=== PATIENT | female | born 1985 | race Caucasian/White ===

== ENCOUNTER 2017-09-30 18:14 | Observation (INO) | payer OTHER ==
[~2017-09-30] VITALS: Ht 162.6 cm; Wt 79.2 kg
[~2017-09-30 18:14] MED LIST: AMLO-110 PO; FLUO20CA35 PO
[2017-09-30] MEDS ORDERED: LABETALOL HCL IV 5 MG/ML 20ML IV STA ×2 (18:32→19:57)
[2017-09-30] MEDS ORDERED: AMLODIPINE BESYLATE 5 MG TAB PO ONE (18:45)
[2017-09-30 19:52] LABS: BUN/CREATININE RATIO 11.8 (10-20); CALCIUM 8.7 mg/dl (8.5-10.1); CREATININE 1.29 mg/dl (0.60-1.20); HEMATOCRIT 37.9 % (37-47); MEAN CELL VOLUME 85.9 fL (80-100); MEAN CORPUSCULAR HGB CONC 33.8 g/dl (32-36); MEAN PLATELET VOLUME 12.9 fL (7.4-10.4); PLATELET COUNT 72 K/uL (130-400); POTASSIUM 3.3 mmol/L (3.5-5.1); RED BLOOD COUNT 4.41 M/uL (4.2-5.4)
[2017-09-30 19:53] LABS: BASO % 0.2 %; BASO ABS # 0.02 K/uL (0-0.2); COMPLETE YES; EOS % 3.9 %; IG% 0.6 %; LYMPH % 24.3 %; LYMPH ABS # 2.14 K/uL (1.2-3.4); MONO % 6.4 %; NEUT % 64.6 %; PLT ESTIMATE DECREASED
--- NOTE | 2017-09-30 19:53 | DIAGNOSTIC IMAGING REPORT ---
HEAD WITHOUT CONTRAST (CT) CLINICAL HISTORY: 31 years-old Female presenting with Headache, HTN. TECHNIQUE: Multidetector CT imaging of the head was performed without the use of intravenous contrast. IV contrast: None. A dose lowering technique was used consistent with the principles of ALARA (as low as reasonably achievable). COMPARISON: None. CT DOSE (mGy.cm): The estimated cumulative dose is 537.48 mGy.cm. FINDINGS: Broadcast Designer topogram: Unremarkable. Ventricles and sulci normal in size. Brain parenchyma normal in appearance with preserved oscar-white differentiation. No mass effect or midline shift. No hemorrhage or acute territorial infarct. No extra-axial fluid collection. Paranasal sinuses and mastoid air cells clear. Calvarium intact. IMPRESSION: 1. No acute intracranial abnormality. Electronically signed by: Anthony Feliz M.D. 09/30/2017 7:51 PM Dictated Date/Time: 09/30/2017 7:49 PM
--- NOTE | 2017-09-30 20:23 | EMERGENCY ROOM VISIT NOTE ---
History Report prepared by Tay: Mychal Villafuerte Under the Supervision of: Dr. Anabella Vidales M.D. First contact with patient: 18:30 Chief Complaint: HYPERTENSION Stated Complaint: SENT BY URGENT CARE - BLOOD PRESSURE 178/128 History of Present Illness The patient is a 31 year old female who presents to the Emergency Room with complaints of persistent dizziness beginning three days ago. She also complains of frequent headaches. She was seen at urgent care just prior to arrival for similar symptoms, was found to have a blood pressure of 178/128, and was referred to the ED for further evaluation. The patient has a history of hypertension, but was taken off of her blood pressure medications about a year ago around the time she became . She had a early miscarriage, but was not started on blood pressure medication. She denies vomiting, or nausea. Her LNMP was one month ago. The patient smokes about a pack of cigarettes a day. She does not currently have a PCP. Source of History: patient Onset: Three days ago Quality: other (dizziness) Timing: other (persistent) Associated Symptoms: + headache, No nausea, No vomiting Review of Systems See HPI for pertinent positives & negatives. A total of 10 systems reviewed and were otherwise negative. Past Medical & Surgical Medical Problems: (1) Cyst of ovary (2) TOBACCO USE DISORDER Family History Diabetes mellitus Heart disease Hypertension Social History Smoking Status: Current Every Day Smoker Alcohol Use: occasionally Housing Status: lives with family Occupation Status: employed Current/Historical Medications Scheduled Hydrochlorothiazide (Hydrochlorothiazide), 25 MG PO QAM Metoprolol Succinate (Metoprolol Succinate ER), 25 MG PO BID Scheduled PRN Ondansetron Odt (Zofran Odt), 8 MG SL Q6H PRN for Nausea Allergies Coded Allergies: Guaifenesin (Verified Allergy, Unknown, HIVES FROM MUCINEX, 10/01/17) Physical Exam Vital Signs Date Time Temp Pulse Resp B/P (MAP) Pulse Ox O2 Delivery O2 Flow Rate FiO2 09/30/17 22:00 87 16 211/125 98 Room Air 09/30/17 21:17 85 16 174/119 98 Room Air 09/30/17 20:22 80 20 173/118 98 Room Air 09/30/17 20:00 94 16 190/126 98 Room Air 09/30/17 19:52 82 09/30/17 19:49 82 16 205/131 98 Room Air 09/30/17 19:25 85 16 184/124 99 Room Air 09/30/17 19:10 84 16 193/132 99 Room Air 09/30/17 18:54 93 16 200/136 100 Room Air 09/30/17 18:25 36.9 103 18 205/143 100 Room Air Physical Exam Vital signs reviewed. Noted to be markedly hypertensive. General: Well-appearing female, in no significant distress. HEENT: No scleral icterus, PERRLA, neck supple. Atraumatic. Cardiovascular: Regular rate and rhythm, no extra sounds. Pulmonary: Clear to auscultation bilaterally, normal work of breathing. Abdomen: Soft, nontender, nondistended, positive bowel sounds. Musculoskeletal: Atraumatic, no peripheral edema. Neurologic: Patient awake alert and oriented x 3, full strength in all 4 extremities. Cranial nerves 2 through 12 grossly intact. Skin: Warm, dry, no rash Medical Decision & Procedures ER Provider Diagnostic Interpretation: CT results as stated below per my review and radiologist interpretation: HEAD WITHOUT CONTRAST (CT) FINDINGS: Carpenter Helper Maintenance topogram: Unremarkable. Ventricles and sulci normal in size. Brain parenchyma normal in appearance with preserved oscar-white differentiation. No mass effect or midline shift. No hemorrhage or acute territorial infarct. No extra-axial fluid collection. Paranasal sinuses and mastoid air cells clear. Calvarium intact. IMPRESSION: 1. No acute intracranial abnormality. Electronically signed by: Anthony Feliz M.D. 09/30/2017 7:51 PM Laboratory Results Test 09/30/17 18:47 09/30/17 20:42 Immature Granulocyte % (Auto) 0.6 % White Blood Count 8.80 K/uL (4.8-10.8) Red Blood Count 4.41 M/uL (4.2-5.4) Hemoglobin 12.8 g/dL (12.0-16.0) Hematocrit 37.9 % (37-47) Mean Corpuscular Volume 85.9 fL (80-100) Mean Corpuscular Hemoglobin 29.0 pg (25-34) Mean Corpuscular Hemoglobin Concent 33.8 g/dl (32-36) Platelet Count 72 K/uL (130-400) Mean Platelet Volume 12.9 fL (7.4-10.4) Neutrophils (%) (Auto) 64.6 % Lymphocytes (%) (Auto) 24.3 % Monocytes (%) (Auto) 6.4 % Eosinophils (%) (Auto) 3.9 % Basophils (%) (Auto) 0.2 % Neutrophils # (Auto) 5.69 K/uL (1.4-6.5) Lymphocytes # (Auto) 2.14 K/uL (1.2-3.4) Monocytes # (Auto) 0.56 K/uL (0.11-0.59) Eosinophils # (Auto) 0.34 K/uL (0-0.5) Basophils # (Auto) 0.02 K/uL (0-0.2) Immature Granulocyte # (Auto) 0.05 K/uL (0.00-0.02) Red Blood Cell Morphology Unremarkable Peripheral Blood Smear Path Consult Magnesium Level 2.0 mg/dl (1.8-2.4) Total Bilirubin 0.9 mg/dl (0.2-1) Direct Bilirubin 0.2 mg/dl (0-0.2) Aspartate Amino Transf (AST/SGOT) 22 U/L (15-37) Alanine Aminotransferase (ALT/SGPT) 28 U/L (12-78) Alkaline Phosphatase 80 U/L (45-117) Total Protein 8.1 gm/dl (6.4-8.2) Albumin 4.4 gm/dl (3.4-5.0) Urine Color YELLOW Urine Appearance CLEAR (CLEAR) Urine pH 5.5 (4.5-7.5) Urine Specific [place] 1.021 (1.000-1.030) Urine Protein 1+ (NEG) Urine Glucose (UA) NEG (NEG) Urine Ketones NEG (NEG) Urine Occult Blood NEG (NEG) Urine Nitrite NEG (NEG) Urine Bilirubin NEG (NEG) Urine Urobilinogen NEG (NEG) Urine Leukocyte Esterase NEG (NEG) Urine WBC (Auto) 1-5 /hpf (0-5) Urine RBC (Auto) 0-4 /hpf (0-4) Urine Hyaline Casts (Auto) 1-5 /lpf (0-5) Urine Epithelial Cells (Auto) >30 /lpf (0-5) Urine Bacteria (Auto) 2+ (NEG) Urine Test NEG (NEG) Laboratory results per my review. Medications Administered Medications (Trade) Dose Ordered Sig/Juju Route Start Time Stop Time Status Last Admin Dose Admin Amlodipine Besylate (Norvasc Tab) 5 mg NOW ONCE PO 09/30/17 18:45 09/30/17 18:46 DC 09/30/17 19:14 5 MG Labetalol HCl (Normodyne IV) 10 mg NOW STAT IV 09/30/17 18:32 09/30/17 18:35 DC 09/30/17 19:12 10 MG Labetalol HCl (Normodyne IV) 20 mg NOW STAT IV 09/30/17 19:57 09/30/17 19:58 DC 09/30/17 20:01 20 MG Acetaminophen (Tylenol Tab) 650 mg Q4H PRN PO 09/30/17 22:00 10/01/17 19:04 DC 09/30/17 23:58 650 MG Ondansetron HCl (Zofran Inj) 4 mg Q6H PRN IV 09/30/17 22:00 10/01/17 19:04 DC 10/01/17 10:12 4 MG ECG Indication: other (dizziness) Rate (beats per minute): 90 Rhythm: normal sinus Findings: T-wave inversion (Inferior), other (RAD. Repolarization abnormality in the lateral leads. Possible previous septal infarct. ) ED Course 1830: Past medical records reviewed. The patient was evaluated in room C1B. A complete history and physical examination was performed. 1831: Ordered Normodyne 10 mg IV. 1844: Ordered Norvasc Tab 5 mg PO. 1956: Ordered Normodyne 20 mg IV. 2010: Upon reevaluation, the patient is resting comfortably. I discussed laboratory and radiographic results with her. She verbalized agreement of the treatment plan. The patient will be evaluated for further management and care. Medical Decision Differential diagnosis: Etiologies such as benign hypertension, hypertensive emergency, cardiovascular pathology, pheochromocytoma, electrolyte abnormality, renal disease, end-organ damage, as well as others were entertained. This patient was evaluated and appeared to be in no significant distress. The patient complains of a mild headache and is somewhat tearful. Vital signs reveal a marked hypertension. Patient was given IV labetalol 10 mg and oral Norvasc 5 mg without any significant improvement. Repeat labetalol 20 mg was administered again without significant improvement. EKG reveals T-wave inversions in the inferior leads. Laboratory work reveals a mild renal insufficiency. CT scan of the head reveals no evidence of acute intracranial hemorrhage. Renal ultrasound was performed and reveals no evidence of significant obstructive change. Given the patient's young age and hypertensive urgency, I feel is in her best interest for further management. Patient is aware of the plan and agrees. Medication Reconcilliation Current Medication List: was personally reviewed by me Blood Pressure Screening Patient's blood pressure: Elevated blood pressure Blood pressure disposition: Referred to PCP Consults Time Called: 2014 Consulting Physician: Dr. Cao -LINDY Returned Call: 2031 I reviewed the patient's case with Dr. Cao. FABIOG will evaluate the patient for further management. Impression Primary Impression: Hypertensive urgency Additional Impression: Renal insufficiency Scribe Attestation The scribe's documentation has been prepared under my direction and personally reviewed by me in its entirety. I confirm that the note above accurately reflects all work, treatment, procedures, and medical decision making performed by me. Departure Information Dispostion Being Evaluated By Hospitalist Prescriptions Ondansetron Odt (ZOFRAN ODT) 8 Mg Soltab 8 MG SL Q6H Y for Nausea, #30 TAB Prov: Capo Sifuentes D.O. 10/01/17 Hydrochlorothiazide (Hydrochlorothiazide) 50 Mg Tab 25 MG PO QAM, #30 TAB Prov: Capo Sifuentes D.O. 10/01/17 Metoprolol Succinate (Metoprolol Succinate ER) 25 Mg Tabcr 25 MG PO BID, #60 TAB Prov: Capo Sifuentes D.O. 10/01/17 Referrals No Doctor, Assigned (PCP) Patient Instructions My [facility] Problem Qualifiers
[2017-09-30 20:57] LABS: URINE APPEARANCE CLEAR (CLEAR); URINE BILIRUBIN NEG (NEG); URINE COLOR YELLOW; URINE EPITHELIAL CELL AUTO >30 /lpf (0-5); URINE NITRITE NEG (NEG); URINE PH 5.5 (4.5-7.5); URINE SPECIFIC GRAVITY 1.021 (1.000-1.030); UROBILINOGEN NEG (NEG); ZZUR CULT IF INDIC CLEAN CATCH YES
[2017-09-30 21:02] LABS: MANUAL MICROSCOPIC REQUIRED? NO; REVIEW REQ? YES
--- NOTE | 2017-09-30 21:15 | DIAGNOSTIC IMAGING REPORT ---
(RENAL)RETROPERITON COMP CLINICAL HISTORY: 31 years-old Female presenting with HTN, renal insufficiency . TECHNIQUE: Real-time grayscale and limited color Doppler ultrasound imaging of the kidneys and bladder was performed. COMPARISON: None. FINDINGS: Right kidney: Normal echogenicity. Right kidney measures 9.9 x 4.6 x 4.5 cm. No hydronephrosis. No convincing evidence of calculus or mass. Normal perfusion. Left kidney: Normal echogenicity. Left kidney measures 10.3 x 4.9 x 4.7 cm. No hydronephrosis. No convincing evidence of calculus or mass. Normal perfusion. Bladder: No bladder wall thickening. Bilateral ureteral jets present. Other: None. IMPRESSION: 1. Normal renal ultrasound. No obstruction. Electronically signed by: Anthony Feliz M.D. 09/30/2017 9:13 PM Dictated Date/Time: 09/30/2017 9:13 PM
[2017-09-30] MEDS ORDERED: ONDANSETRON INJ 2 MG/ML 2 ML VIAL IV PRN (22:00)
[2017-09-30] MEDS ORDERED: POLYETHYLENE (MIRALAX) 17 GM PACK PO PRN (22:00)
[2017-09-30] MEDS ORDERED: MAGNESIUM HYDROXIDE SUSP 30 ML UDC PO PRN (22:00)
[2017-09-30] MEDS ORDERED: ACETAMINOPHEN 325 MG TAB PO PRN (22:00)
[2017-09-30] MEDS ORDERED: ALUMINUM/MAGNESIUM/SIMETH (MAALOX MAX) 30 ML UDC PO PRN (22:00)
[2017-09-30] MEDS ORDERED: SPIRONOLACTONE 25 MG TAB ONE (22:11)
[2017-09-30] MEDS ORDERED: SPIRONOLACTONE 25 MG TAB PO STA ×2 (22:15→22:16)
[2017-09-30] MEDS ORDERED: IV FLUIDS COMPLETED PRN (22:45)
[2017-09-30 23:48] VITALS: BP 180/115; PULSE 90; TEMP 37; O2SAT 98; Ht 162.6 cm; Wt 79.2 kg
[2017-09-30 23:54] LABS: INR 1.1 (0.9-1.1); PROTHROMBIN TIME (PATIENT) 11.4 SECONDS (9.0-12.0)
[2017-10-01] VITALS (9 sets, daily range): BP systolic 155–210; BP diastolic 90–128; PULSE 87–91; TEMP 36.7–36.9; O2SAT 97–98
[2017-10-01] MEDS ORDERED: NSS + 20MEQ KCL 1000ML 1,000 ML IV SCH (01:00)
--- NOTE | 2017-10-01 02:26 | History and Physical ---
History & Physical Date of Service Oct 01, 2017. History & Physical See dictated report for full H&P HISTORY 31 YO female, previous Hx of HTN, presents with elevated blood pressure. C/o headache and dizziness for the past year, but worsening over the past 4 days. Denies chest pain, shortness of breath or lower extremity edema. Has had dx of HTN 2 years ago. Was on Norovasc, but stopped this when she got in 07/2016. Never got back on it. Was seen by urgent care, who noted significantly elevated BP and referred to ED. In ED, BP remained elevated after Amlodipine and Labetalol. Decision made to admit for further evaluation/management. EXAMINATION - Vitals: Vital Signs Label Value Date Time Blood Pressure Assessment 205/143 09/30/17 1825 Blood Pressure Assessment 200/136 09/30/17 1854 Source NIBP Blood Pressure Assessment 193/132 09/30/17 1910 Source NIBP Blood Pressure Assessment 184/124 09/30/17 192 Source NIBP Blood Pressure Assessment 205/131 09/30/17 1949 Source NIBP Blood Pressure Assessment 190/126 09/30/171999 Source NIBP Blood Pressure Assessment 173/118 09/30/172021 Location Left Arm Source NIBP Blood Pressure Assessment 174/119 09/30/17 2117 Source NIBP Blood Pressure Assessment 211/125 09/30/17 2200 Source NIBP Blood Pressure Assessment 173/107 09/30/17 2315 Location Right Arm Source NIBP Position Supine Blood Pressure Assessment 180/115 09/30/17 2348 Location Left Arm Source NIBP Position Supine Blood Pressure Assessment 165/106 (125) 10/01/17 0056 - Examination otherwise unremarkable LABS/INVESTIGATIONS - Heme: Plt 75 (has known thrombocytopenia, was Plt in the 80s in 2016) - Lytes/Renal Fnx: K 3.3, Cr elevated at 1.29 (baseline unknown); otherwise normal renal function - Renal US: unremarkable - CT brain: no acute process ASSESSMENT 31 year old female with: - Hypertensive urgency - Hx of chronic hypertension - Hypokalemia - Acute Kidney Injury - Thrombocytopenia - Tobacco use PLAN - Admit for BP monitoring - Start Spironolactone due to consideration for hyperaldosteronism (due to low K and resistance to medication in ED) - Work-up for secondary causes of HTN: TSH, Renin level, aldosterone leve, 24 hours HIAA, 24 hours metanephrines, Renal artery doppler - Regarding BOB, and hypokalemia, will rehydrate with NSS + 20 mEq KCL overnight - Regarding thrombocytopenia, follow daily Plt count. Check peripheral smear + US spleen - Repeat EKG to follow possible ischemic changes on first EKG - Encouraged tobacco cessation as means to help wit BP. Nicotine patch. - DVT prophylaxis: SCD, TEDs - Level I Full Code - No indication for OT/PT at this time - Observation telemetry Attending Addendum: I have physically seen and examined this patient, have supervised the medical residents activities, and agree with the H&P as noted above with the following exceptions as noted. The patient denies chest pain, palpitations, shortness of breath, cough, lower extremity swelling, vision change, hearing change, sore throat, fevers, chills, sweats, weight change, fatigue, nausea, vomiting, diarrhea or constipation, abdominal pain, pelvic pain, blood in urine or stool, dysuria, urinary frequency or urgency, memory loss, rash, abnormal bruising or bleeding, imbalance, focal or generalized weakness, numbness or tingling in arms or legs, generalized arthralgias or myalgias, back or neck pain, night sweats, or allergy symptoms. The review of systems is otherwise negative other than for that already noted above, and at least 10 systems have been reviewed. The patient is awake, well-developed and adequately nourished, alert and oriented 3, normocephalic and atraumatic, lying in bed and in no acute distress. HEENT--PERRL, EOMI, mucous membranes and oropharynx dry. Neck--supple, no JVD or bruits, thyroid normal, trachea midline, no adenopathy. Heart--normal S1 and S2, no extra beats, no murmurs, rubs or gallops. Lungs--clear bilaterally with good air movement, no respiratory distress, no accessory muscle use. Abdomen--normal bowel sounds and soft, nontender and nondistended, no hernias or masses, no organomegaly. Extremities--no cyanosis, clubbing or edema. There are good distal pulses b/l. Dermatologic--normal skin turgor, normal color, warm and dry, no abnormal lymph nodes, no rash. Neurologic--cranial nerves II through XII grossly intact, motor and sensory examination normal. Rheumatologic--normal range of motion, nontender, muscles and joints. Psychiatric--normal affect. Assessment and Plan: 1. Hypertensive urgency-- The patient received labetalol 10 mg IV, then Norvasc 5 mg by mouth, and then labetalol 20 mg IV in the emergency department with little improvement in blood pressure She will be admitted to the telemetry unit for rhythm monitoring. 2-D echocardiogram with Dopplers. Renin and aldosterone levels Serum catecholamines and urine metanephrines, urinary 5-HIAA, and renal artery Doppler. Start spironolactone Lopressor 5 mg IV every 4 hours when necessary systolic blood pressure greater than 160 if pulse > 70. Hydralazine 10 mg IV every 4 hours when necessary systolic blood pressure greater than 160 if pulse < or = 70. Rehydrate with IV fluids, NSS +20 mEq potassium chloride at 100 mils per hour Thrombocytopenia-- Order abdominal ultrasound Peripheral smear Repeat laboratories in a.m. Antiplatelets antibodies Tobacco use disorder-- Encouraged cessation Nicotine patch
[2017-10-01 06:10] LABS: HEMATOCRIT 35.6 % (37-47); MEAN CORPUSCULAR HEMOGLOBIN 29.7 pg (25-34); MEAN CORPUSCULAR HGB CONC 34.6 g/dl (32-36); MEAN PLATELET VOLUME 13.7 fL (7.4-10.4); PLATELET COUNT 71 K/uL (130-400); RED BLOOD COUNT 4.14 M/uL (4.2-5.4); WHITE BLOOD COUNT 7.95 K/uL (4.8-10.8)
[2017-10-01 06:11] LABS: PLT ESTIMATE DECREASED
[2017-10-01] MEDS ORDERED: METOPROLOL TARTRATE 1 MG/ML VIAL IV PRN (06:15)
[2017-10-01 06:22] LABS: BUN/CREATININE RATIO 10.4 (10-20); CALCIUM 8.3 mg/dl (8.5-10.1); CREATININE 1.18 mg/dl (0.60-1.20); POTASSIUM 3.5 mmol/L (3.5-5.1)
[2017-10-01 06:37] LABS: BENZODIAZEPINE, URINE NEG (NEG); COCAINE,URINE NEG (NEG); PHENCYCLIDINE, URINE NEG (NEG)
--- NOTE | 2017-10-01 07:06 | HISTORY & PHYSICAL EXAMINATION ---
DATE OF ADMISSION: 09/30/2017 HISTORY OF PRESENT ILLNESS: Mrs. Alarcon is a pleasant 31-year-old female, with a history of chronic hypertension, and thrombocytopenia, who presents to the Emergency Department today with an elevated blood pressure. The patient was referred from an urgent care center. The patient states that she has been feeling unwell for the past three days. She reports getting intermittently dizzy and lightheaded. She also reports a constant headache, which she reports as dull and across the entire scalp. This pain has been worse in the past three days, but she reports that this has actually been going on for at least the past one year. Ibuprofen is moderate useful. In addition to this, she reports intermittent blurred vision episodes. This has been going on again for the past one year. These happen approximately two times a week. She cannot time it with any specific triggers. They last anywhere from a few minutes to thirty minutes and they resolve spontaneously. In addition, over the past few days, she reports feeling hot and clammy intermittently. She denies any chest pain. She denies any swelling of the lower extremities. She denies any shortness of breath. The patient does state that she has previously been given a diagnosis of hypertension. Her diagnosis was made approximately two years ago. She states she was put on Norvasc at that time and that helped maintain her blood pressures in the range of 120 systolic and 80 diastolic. However, in July 2016, the patient got and at that time she was advised by one of her physicians to stop her antihypertensive. Unfortunately, the patient suffered a miscarriage. During that time, she failed to reestablish with her PCP and as such had never restarted on any antihypertensive medications. She being off of her antihypertensive, she does not routinely check her blood pressure at home, so does not know what her baseline is. In the setting of feeling unwell today, she went to the urgent care center. They reported that her blood pressure was elevated and instructed her to come to the Emergency Room immediately for further evaluation. In the Emergency Room, on arrival, her blood pressure was elevated at 205/143. She was treated with one dose of amlodipine 5 mg as well as a 20 mg of IV labetalol. Unfortunately, these failed to bring her blood pressure down and the decision was made to have the patient evaluated for further management and admission. REVIEW OF SYSTEMS: The 10-point review of systems was otherwise negative unless stated above in the history of presenting illness. PAST MEDICAL AND SURGICAL HISTORY: 1. Hypertension. 2. Miscarriages in 2004, 2014 and 2016. 3. Ovarian cyst. 4. Thrombocytopenia. 5. History of D&E. MEDICATIONS: Ibuprofen as needed for headache. ALLERGIES: MUCINEX. SOCIAL HISTORY: The patient is a 1-pack per day smoker. She has been doing this for the past 13 years. The patient states that she is an occasional alcohol consumer and drinks approximately 1 unit of alcohol per month. 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 She lives at home with her as well as her son. She is independent with all of her activities of daily living. FAMILY HISTORY: The patient reports a family history of coronary artery disease as well as asthma. PHYSICAL EXAMINATION: VITAL SIGNS: On arrival are; temperature 36.9, pulse rate 103, respiratory rate 18, blood pressure 205/143 and pulse oximetry 100% on room air. At the time of my history, the patient's pulse is 85 and blood pressure came down to 174/119. GENERAL INSPECTION: The patient is comfortable and not in any apparent pain or distress. NEUROLOGIC: The patient is alert and oriented to person, place and time. The patient does not have any pronator drift. The patient's coordination is normal. The patient's cranial nerves II-XII are grossly intact. HEAD: Nontraumatic and normocephalic. EYES: Pupils are equal, round and reactive bilaterally. Extraocular eye movements are intact bilaterally. ENT: Tympanic membranes are clear bilaterally, the pharynx is clear, there is no sinus tenderness and mucous membranes appear moist. NECK: Supple, no cervical adenopathy, no thyromegaly and no JVD. RESPIRATORY/CHEST: Breath sounds are clear to auscultation bilaterally, no evidence of crackles or wheezing and no evidence of respiratory distress. CARDIAC: S1 and S2 with no added sounds, murmurs, rubs or gallops. ABDOMEN/GASTROINTESTINAL: Soft, nontender and nondistended. There are no masses to palpation. There is no hepatomegaly or splenomegaly. The bowel sounds are normal in all 4 quadrants. BACK: There is no spinal or paraspinal tenderness. There are no abnormal curvatures of the spine. EXTREMITIES: There is no calf pain, calf tenderness or pitting edema. INTEGUMENTARY: There are no obvious rashes or petechial lesions on the patient. LABORATORY AND INVESTIGATIONS: HEMATOLOGY: White blood cell 8, hemoglobin 12.8, hematocrit 37, MCV 85.9 and platelets count 72 (platelets in July 2016 were 89). ELECTROLYTES: Sodium 138, potassium 3.3, chloride 106 and bicarb of 23. RENAL FUNCTION: BUN 15, creatinine 1.29, EGFR 55.9 (creatinine was 1.0 in 2013; there is no interval creatinine between now and then). LIVER FUNCTION/LIVER ENZYMES: Total bilirubin is 0.9, direct bilirubin is 0.2, AST 22, ALT 28, alkaline phosphatase 80 and albumin 4.4. URINALYSIS: Grossly normal. EKG; normal sinus rhythm at a rate of 90, there are T-wave inversions in leads III and aVF. Head CT; there is no acute intracranial process. Renal ultrasound; normal renal ultrasound with no obstruction. ASSESSMENT: This is a 31-year-old female, who presents with acute on chronic hypertension. Blood pressures are elevated in the 200s systolic on arrival; this would categorize as a hypertensive urgency. PROBLEM LIST: As follows: 1. Hypertensive urgency 2. Hypokalemia. 3. Acute kidney injury. 4. Thrombocytopenia. 5. Tobacco use PLAN: 1. The patient will be started on spironolactone. Rationale for this is looking at the slightly low potassium, one would consider the possibility of hyperaldosteronism as an etiology for the high blood pressure. She has also been given Norvasc and labetalol here in the Emergency Room which have not helped. Lopressor and Hydralazine PRN orders have also been added on 2. We will add additional testing to evaluate for secondary causes of hypertension. These include a TSH, a 24 hour urine 5-HIAA, a 24-hour urine metanephrines, serum renin level and serum aldosterone level. We have also added a renal artery US doppler 3. Regarding her acute kidney injury and hypokalemia, we will hydrate the patient with normal saline + 20 mEq KCl. We will repeat a BMP with the morning labs. 4. Regarding T wave inversions on the EKG, she is chest pain free, but we will repeat EKG to evaluate for progression. 5. Regarding her thrombocytopenia, we will continue to trend the CBC daily. There is no evidence of petechiae or stigmata of bleeding. At this time, I will also order an ultrasound of the spleen to evaluate for splenomegaly as well as a peripheral smear. 6. I will order a renal artery Doppler ultrasound as another test for secondary causes of hypertension. 7. Regarding DVT prophylaxis, the patient will be given SCDs and TEDs as well as 40 mg of Lovenox subcutaneous daily. 8. The patient is independent with all activities of daily living. Therefore, OT and PT are not indicated at this time. 9. The patient is a level 1 full code. 10. The patient will be admitted under observation status to telemetry overnight. Attending Addendum: I have physically seen and examined this patient, have directed the resident's medical activities, and agree with the H&P as noted above with the following exceptions as noted. The patient is awake, alert and oriented 3, well-developed and well-nourished , normocephalic and atraumatic, lying in bed and in no acute distress. HEENT--PERRL, EOMI, mucous membranes and oropharynx dry. Neck--supple, no JVD or bruits, thyroid normal, trachea midline, no adenopathy. Heart--normal S1 and S2, no extra beats, no murmurs, rubs or gallops. Lungs--clear bilaterally with good air movement, no respiratory distress, no accessory muscle use. Abdomen--normal bowel sounds and soft, nontender and nondistended, no hernias or masses, no organomegaly. Extremities--no cyanosis, clubbing or edema. There are good distal pulses b/l. Dermatologic--normal skin turgor, normal color, warm and dry, no abnormal lymph nodes, no rash. Neurologic--cranial nerves II through XII grossly intact. Rheumatologic--normal range of motion. Psychiatric--normal affect. Assessment and Plan: Hypertensive urgency-- Plan as noted on H&P of same day. MTDD
[2017-10-01] MEDS: HydrALAZINE HCL 20 MG/ML VIAL IV. PRN ×2 (08:09→15:36)
[2017-10-01] MEDS ORDERED: ENOXAPARIN 40 MG/0.4 ML SYR SC SCH (09:00)
[2017-10-01] MEDS ORDERED: NURSING VERBAL MED ORDER ONE ×2 (09:00→10:45)
[2017-10-01] MEDS ORDERED: NICOTINE 14 MG/24 HR TDSY TD SCH (09:00)
[2017-10-01] MEDS ORDERED: HYDROCHLOROTHIAZIDE 50 MG TAB PO SCH (09:00)
[2017-10-01] MEDS: KETOROLAC TROMETHAMINE 15 MG/ML VIAL IV. PRN ×2 (11:52→18:36)
--- NOTE | 2017-10-01 11:56 | DIAGNOSTIC IMAGING REPORT ---
SPLEEN ULTRASOUND CLINICAL HISTORY: evaluate for splenomegaly as cause for thrombocytopenia COMPARISON STUDY: None. FINDINGS: The splenic artery and vein are patent. The spleen measures 11.7 x 6.6 cm in size. The spleen has a slightly bulbous appearance. There are no splenic masses or perisplenic fluid collections. The splenic volume is approximately 263 cc. IMPRESSION: The spleen is top normal in size and borderline enlarged for volume. No splenic masses. Electronically signed by: Everette Estrada M.D. 10/01/2017 11:54 AM Dictated Date/Time: 10/01/2017 11:50 AM
--- NOTE | 2017-10-01 12:00 | DIAGNOSTIC IMAGING REPORT ---
DUPLEX RENAL ARTERY ULTRASOUND CLINICAL HISTORY: Hypertension COMPARISON STUDY: Renal ultrasound 09/30/2017. FINDINGS: Bilateral renal veins are patent. No elevated velocities within the renal arteries to suggest stenosis. There are 2 left renal arteries and a single right renal artery. Normal caliber abdominal aorta. Resistive indices of the bilateral renal arcuate arteries are within normal limits. IMPRESSION: No evidence for renal artery stenosis. Electronically signed by: Everette Estrada M.D. 10/01/2017 11:59 AM Dictated Date/Time: 10/01/2017 11:57 AM
[2017-10-01] MEDS ORDERED: METOPROLOL SUCC 25MG EXT REL TAB PO ONE (13:30)
[2017-10-01] MEDS ORDERED: TPRSR25 PO (17:58)
[2017-10-01] MEDS ORDERED: HYD50 PO (17:58)
[2017-10-01] MEDS ORDERED: ONDA8TAB62 SL (17:58)
[2017-10-01] MEDS ORDERED: ONDANSETRON INJ 8 MG in DEXTROSE 5% 50ML 50 ML IV ONE (18:00)
--- NOTE | 2017-10-01 18:19 | Discharge Instructions ---
Discharge Instructions Date of Service Oct 01, 2017. Admission Reason for Admission: Hypertensive Urgency Discharge Discharge Diagnosis / Problem: uncontrolled hypertension Discharge Goals Goal(s): Diagnostic testing, Therapeutic intervention Activity Recommendations Activity Limitations: resume your previous activity (off work until seen in the office saturday; once your pressures are improved enough, start to work towards a goal of 30 minutes of light cardiovascular exercise a day) . Instructions / Follow-Up Instructions / Follow-Up uncontrolled hypertension -as we discussed, it appears most likely that you've had a baseline of high blood pressure for a while, and that the headache really more than anything was the reason you sought care and were found to have high blood pressure. it's highly likely that the pain from the headache was making the blood pressure worse, more than the blood pressure causing the headache (usually when high blood pressure is the cause of the headache, there are other neurologic signs to go with it) -fortunately your "secondary workup" (looking for causes that are more of a separate entity) for hypertension were negative, unfortunately that means that your blood pressure is probably a combination of "essential hypertension" (high blood pressure because of a genetic influence) and effects of nicotine and stress -an "average" hypertension patient often ends up on 3 medications to keep blood pressure under control - this is because blood pressure usually has multiple fluid/electrolyte/hormonal influences, so there's rarely a "magic bullet" that treats someone's blood pressure with a single medication -for now, we're starting you on two, with the hopes that between the medications, quitting smoking, and hopefully working to manage stress from work your pressures will improve metoprolol: a class of blood pressure medications called beta blockers, metoprolol blocks how much your fight or flight nervous system can raise blood pressure (and heart rate) -- usually really well tolerated, it can cause fatigue or lightheadedness, although this is most typically only when someone is treated to too low of a blood pressure or heart rate hydrochlorothiazide: while this is a diuretic, it usually only has a "makes you pee too much" effect for a few days to a few weeks, then your kidneys stabilize on the medication and it mostly changes how your kidneys process salt and water, which is another major driving factor for high blood pressure. because of the diuretic effect it can have, it does require periodic labwork ( BMP) -- we'd ask that they check this after your appointment on saturday home monitoring: the best way to really know what your pressures are doing is frequent monitoring under varying conditions, so we'd recommend that you get a home blood pressure cuff (not a wrist cuff, though), to follow pressures randomly throughout the day. for now, check at least 2-3 times a day, different times, before medications, a few hours after medications, etc, so that you and your family doc have a good idea of how you normally run. this will really help fine tune medicines, especially since i suspect you run higher than normal when you're in contact with a "white coat!" low platelets: your platelet counts are somewhat low, but certainly not dangerously so. they're in a similar range as they've been since at least last year. the ultrasound of your spleen shows it to be just a little bigger than normal, suggesting that it's probably at least partially culprit for the low platelets. your family doc will likely get you in to see a heavy equipment service technician. 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 certainly if i'm not on the right track diagnostically, they'll be able to get things better sorted out, but definitely it's not something that you're in any danger from, with counts being really similarly low over the last year or more. as we discussed, while i don't know off hand of any syndromes that correlate between low platelets and miscarriages, the heavy equipment service technician certainly would, so if there are any things to be aware of, they'd be able to help clarify and guide moving forward. elevated TSH - as part of the workup for your blood pressure, the admitting team checked thyroid levels. your TSH (the signal that your brain sends to tell your thyroid how hard to work) was just a little elevated at 6.2 (normal is about 0.5-2.5) -- suggesting that your thyroid might be a bit underactive. first, this was actually being checked to ensure that overactive thyroid wasn't causing your blood pressure to be up (it wasn't). second, when people are sick often times is when they will show TSH levels being "off" and then things totally normalize over time. third, it's been well studied that even when people truly are underactive thyroid, they don't really feel symptoms of it until a TSH is at least 10. basically, the next step for this will be to repeat levels in about 4 weeks. if it's still up, then they'll need to look into possibly treating. more often that not, though, we find that it's normalized. headache -your headache symptoms and your physical exam (tender in the suboccipital region) fit totally with a tension headache. ice packs and massage to the areas that were tender should help alleviate the headaches Current Hospital Diet Patient's current hospital diet: Low Sodium Diet (2gm Na) Discharge Diet Recommended Diet: Low Sodium Diet (2gm Na) (it's not totally clear who is sensitive to sodium in relation to blood pressure, and who isn't, but as a starting point trying to stay at less than 2000mg of sodium a day is reasonable - and then if you see that it's helping you can continue to restrict; if you see no changes you can get a little looser. overall work towards a diet high in fruits and vegetables, lean sources of protein (chicken without the skin, pork with the fat cut off, fish) and low in bad (saturated) fats and low in simple/starchy carbs) Pending Studies Studies pending at discharge: yes List of pending studies: renin and aldosterone levels - two hormones that drive hypertension, that if elevated, may change what medications are most effective. these levels will likely take about a week to come back Medical Emergencies . Who to Call and When: Medical Emergencies: If at any time you feel your situation is an emergency, please call 911 immediately. . Non-Emergent Contact Non-Emergency issues call your: Primary Care Provider . . "Provider Documentation" section prepared by Capo Sifuentes. . VTE Core Measure Inpt VTE Proph given/why not?: Enoxaparin (Lovenox)SQ
[2017-10-01] MEDS ORDERED: METOPROLOL SUCC 25MG EXT REL TAB PO SCH (21:00)
--- NOTE | 2017-10-02 08:41 | Discharge Summary ---
Discharge Summary Date of Service Oct 02, 2017. Discharge Summary Admission Date: Sep 30, 2017 at 22:00 Discharge Date: Oct 01, 2017 Discharge Disposition: Home Principal Diagnosis: uncontrolled HTN, see below otherwise Immunizations: Have You Had Influenza Vaccine: No History of Tetanus Vaccine?: Unknown History of Pneumococcal: Unknown History of Hepatitis B Vaccine: Unknown Procedures: [~ rep ct add3]] HEAD WITHOUT CONTRAST (CT) CLINICAL HISTORY: 31 years-old Female presenting with Headache, HTN. TECHNIQUE: Multidetector CT imaging of the head was performed without the use of intravenous contrast. IV contrast: None. A dose lowering technique was used consistent with the principles of ALARA (as low as reasonably achievable). COMPARISON: None. CT DOSE (mGy.cm): The estimated cumulative dose is 537.48 mGy.cm. FINDINGS: Stripper Soft Plastic topogram: Unremarkable. Ventricles and sulci normal in size. Brain parenchyma normal in appearance with preserved oscar-white differentiation. No mass effect or midline shift. No hemorrhage or acute territorial infarct. No extra-axial fluid collection. Paranasal sinuses and mastoid air cells clear. Calvarium intact. IMPRESSION: 1. No acute intracranial abnormality. Electronically signed by: Anthony Feliz M.D. 09/30/2017 7:51 PM Dictated Date/Time: 09/30/2017 7:49 PM (RENAL)RETROPERITON COMP CLINICAL HISTORY: 31 years-old Female presenting with HTN, renal insufficiency . TECHNIQUE: Real-time grayscale and limited color Doppler ultrasound imaging of the kidneys and bladder was performed. COMPARISON: None. FINDINGS: Right kidney: Normal echogenicity. Right kidney measures 9.9 x 4.6 x 4.5 cm. No hydronephrosis. No convincing evidence of calculus or mass. Normal perfusion. Left kidney: Normal echogenicity. Left kidney measures 10.3 x 4.9 x 4.7 cm. No hydronephrosis. No convincing evidence of calculus or mass. Normal perfusion. Bladder: No bladder wall thickening. Bilateral ureteral jets present. Other: None. IMPRESSION: 1. Normal renal ultrasound. No obstruction. Electronically signed by: Anthony Feliz M.D. 09/30/2017 9:13 PM Dictated Date/Time: 09/30/2017 9:13 PM DUPLEX RENAL ARTERY ULTRASOUND CLINICAL HISTORY: Hypertension COMPARISON STUDY: Renal ultrasound 09/30/2017. FINDINGS: Bilateral renal veins are patent. No elevated velocities within the renal arteries to suggest stenosis. There are 2 left renal arteries and a single right renal artery. Normal caliber abdominal aorta. Resistive indices of the bilateral renal arcuate arteries are within normal limits. IMPRESSION: No evidence for renal artery stenosis. Electronically signed by: Everette Estrada M.D. 10/01/2017 11:59 AM Dictated Date/Time: 10/01/2017 11:57 AM SPLEEN ULTRASOUND CLINICAL HISTORY: evaluate for splenomegaly as cause for thrombocytopenia COMPARISON STUDY: None. FINDINGS: The splenic artery and vein are patent. The spleen measures 11.7 x 6.6 cm in size. The spleen has a slightly bulbous appearance. There are no splenic masses or perisplenic fluid collections. The splenic volume is approximately 263 cc. IMPRESSION: The spleen is top normal in size and borderline enlarged for volume. No splenic masses. Electronically signed by: Everette Estrada M.D. 10/01/2017 11:54 AM Last Resulted CBC 10/01/17 05:18 Last Resulted BMP 10/01/17 05:18 Item Value Date Time Thyroid Stimulating Hormone (TSH) 6.120 uIu/ml H 09/30/17 5361 Medication Reconciliation New Medications: Ondansetron Odt (Zofran Odt) 8 Mg Soltab 8 MG SL Q6H PRN for Nausea, #30 TAB Hydrochlorothiazide (Hydrochlorothiazide) 50 Mg Tab 25 MG PO QAM, #30 TAB Metoprolol Succinate (Metoprolol Succinate ER) 25 Mg Tabcr 25 MG PO BID, #60 TAB Discharge Exam Physical Exam: General Appearance: no apparent distress Eyes: EOMI ENT: hearing grossly normal Neck: trachea midline Respiratory/Chest: no respiratory distress, no accessory muscle use Extremities: normal inspection Neurologic/Psychiatric: 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 after extensive w/u and further review, headache appears predominantly tension - not caused by hypertension - and likely pt has uncontrolled essential hypertension made worse by pain from headache, stress (both acutely from hospitalization and chronically from work) and tobacco abuse uncontrolled HTN -no "fallout" (no LVH, CKD, cerebrovascular changes, etc) identified, extensive w/u for causes of secondary HTN with no yield - renin and aldosterone levels still pending; 24hr urine for pheo initially ordered, but without episodic HTN/ flushing/tachycardia bouts that would be typical for pheo, this was deferred for now, can be pursued as outpt later if her situation changes more to fit wtih this. -likely multifactorial as above noted (essential hypertension, stress, pain from headache, tobacco abuse) -started hydrochlorothiazide and metoprolol -follow BP multiple times a day at home -f/u PCP 10/04, BMP at PCP f/u -counselled on lifestyle, tobacco cessation, etc headache -exam w suboccipital tenderness c/w tension headache -NO neurologic s/s concerning for cerebrovascular disease/cerebral edema - therefore making headache an "effect" of uncontrolled HTN unlikely - far more likely is that the pain from the headache was contributory to raising her BP higher -ice, home massage to suboccipitals thrombocytopenia -appearing chronic to at least last year, spleen slightly enlarged. no severe low plt, no bleeding - safe/stable as outpt issue. 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 offered ongoing in-hospital supportive care, but she was desperate to get home - certainly is currently well hydrated, nausea/vomiting likely to be short lived. supportive care at home, khoa candelaria, reminded her that she can always come back if worsening. stable for home in this regard stable for home 10/04 PCP f/u Total Time Spent: Greater than 30 minutes This includes examination of the patient, discharge planning, medication reconciliation, and communication with other providers. Discharge Instructions Please refer to the electronic Patient Visit Report (Discharge Instructions) for additional information. Additional Copies To Sonal Rushing .KEL
== END 2017-10-01 19:03 | disposition home or self-care (01) ==
LOC: C.EDB 18:16 → C.2E 22:00 → ENRESERV 22:15
PROVIDERS: ADMIT Student in an Organized Health Care Education/Training Program; ATTEND Family Medicine
DX: I10 Essential (primary) hypertension (principal); R51 Headache; N28.9 Disorder of kidney and ureter, unspecified; D69.6 Thrombocytopenia, unspecified; F17.200 Nicotine dependence, unspecified, uncomplicated; Z83.3 Family history of diabetes mellitus; Z82.49 Family history of ischemic heart disease and other diseases of the circulatory system; Z82.5 Family history of asthma and other chronic lower respiratory diseases

== ENCOUNTER → 2018-01-31 | Day surgery (SDC) | payer OTHER ==
[2018-01-30 15:33] VITALS: BMI 29.0
[~2018-01-31] VITALS: Ht 162.6 cm; Wt 76.4 kg
[~2018-01-31] MED LIST changes: -AMLO-110 PO; +ATROPINE SULFATE 0.1 MG/ML 5ML SYR IV PRN; +BUPR-79 PO; +DEXAMETHASONE SOD INJ 4 MG/ML VIAL ONE; +EpHEDrine SULFATE 50MG/5ML SYR ONE; +EpHEDrine SULFATE INJ 50 MG/ML AMP IV PRN; +FENTANYL CITRATE INJ 50 MCG/1 ML 2 ML VIAL ONE; -FLUO20CA35 PO; +HYD50 PO; +HYDROmorphone INJ 0.5 MG/0.5 ML SYR IV PRN; +LABE100T23 PO; +LABETALOL HCL IV 5 MG/ML 20ML IV PRN; +LACTATED RINGER'S 1000ML 1,000 ML IV SCH; +LIDOCAINE HCL 2% 2 ML VIAL (20MG/ML) ONE; +MIDAZOLAM HCL 1 MG/ML 2ML VIAL ONE; +ONDANSETRON INJ 2 MG/ML 2 ML VIAL IV PRN; +ONDANSETRON INJ 2 MG/ML 2 ML VIAL ONE; +OXYC-57 PO; +OXYCODONE/ACETAMINOPHEN 5-325 TAB PO PRN; +PHENYLEPHRINE 100MCG/ML 5ML SYR IV PRN; +PHENYLEPHRINE 100MCG/ML 5ML SYR ONE; +PROMETHAZINE HCL INJ 12.5 MG in SODIUM CHLORIDE 0.9% 50ML 50 ML IV PRN; +PROPOFOL IV EMULSION 10 MG/ML 20 ML VIAL IV ONE; +SODIUM CHLORIDE 0.9% 1000ML 1,000 ML IV SCH
[2018-01-31 06:44] VITALS: BP 130/81; PULSE 86; TEMP 37.1; O2SAT 98; Ht 162.6 cm; Wt 76.4 kg
--- NOTE | 2018-01-31 06:52 | History & Physical Bridge Note ---
H&P Re-Evaluation Bridge Note: I have examined the patient, reviewed the History & Physical and in the interval since the performance of the History & Physical I have noted the following changes of clinical significance: No changes noted
[2018-01-31 07:13] LABS: HEMATOCRIT 29.1 % (37-47); HEMOGLOBIN 10.4 g/dL (12.0-16.0); MEAN CELL VOLUME 86.1 fL (80-100); MEAN CORPUSCULAR HEMOGLOBIN 30.8 pg (25-34); MEAN CORPUSCULAR HGB CONC 35.7 g/dl (32-36); RED CELL DISTRIBUTION WIDTH CV 12.8 % (11.5-14.5); RED CELL DISTRIBUTION WIDTH SD 40.1 fL (36.4-46.3); WHITE BLOOD COUNT 10.41 K/uL (4.8-10.8)
[2018-01-31 07:20] LABS: MEAN PLATELET VOLUME 12.3 fL (7.4-10.4); PLATELET COUNT 56 K/uL (130-400)
[2018-01-31 07:21] LABS: BASO % 0.2 %; BASO ABS # 0.02 K/uL (0-0.2); EOS % 3.4 %; EOS ABS # 0.35 K/uL (0-0.5); IG# 0.06 K/uL (0.00-0.02); LYMPH % 17.2 %; LYMPH ABS # 1.79 K/uL (1.2-3.4); MONO % 7.1 %; MONO ABS # 0.74 K/uL (0.11-0.59); NEUT % 71.5 %; NEUT ABS # 7.45 K/uL (1.4-6.5)
--- NOTE | 2018-01-31 08:37 | [facility] Post Operative Brief Note ---
Immediate Operative Summary Operative Date Jan 31, 2018. Pre-Operative Diagnosis first trimester missed Post-Operative Diagnosis first trimester missed Procedure(s) Performed Suction Dilation and Evacuation Surgeon Dr. Nathaniel Aragon [employer]er Surgeon(s) None Estimated Blood Loss 200mL Findings Consistent with Post-Op Diagnosis Fluids (cc crystalloids) 1000 Specimens Permanent Solution: A.) Products of Conception Drains None Anesthesia Type General Complication(s) none Disposition Accompanied Pt To Recover: no Disposition: Recovery Room / PACU
--- NOTE | 2018-01-31 08:40 | Discharge Instructions ---
Discharge Instructions Date of Service Jan 31, 2018. Visit Reason for Visit: Missed Discharge Discharge Diagnosis / Problem: s/p suction D&E Discharge Goals Goal(s): Decrease discomfort Activity Recommendations Activity Limitations: per Instructions/Follow-up section Anesthesia . Post Anesthesia Instructions: If you have had General Anesthesia or IV Sedation: * Do not drive today. * Resume driving when surgeon permits. * Do not make important decisions or sign legal documents today. * Call surgeon for: 1. Temperature elevations greater than 101 degrees F. 2. Uncontrollable pain. 3. Excessive bleeding. 4. Persistent nausea and vomiting. 5. Medication intolerance (nausea, vomiting or rash). * For nausea and vomiting use only clear liquids such as: tea, soda, bouillon until nausea subsides, then gradually increase diet as tolerated. * If you have any concerns or questions, call your surgeon's office. If physician is unavailable and it is an emergency, call 911 or go to the nearest emergency room. . Instructions / Follow-Up Instructions / Follow-Up ACTIVITY RECOMMENDATIONS: * Avoid tampons, douching, hot tubs, pools, and intercourse until bleeding has stopped. * May shower as usual. * No strenuous activity for 24-48 hours. After 24-48 hours, you may do anything you feel like doing (driving and sports are okay). SPECIAL CARE INSTRUCTIONS: Special Diet: * Mild nausea may occur in the immediate post-operative period. * Take clear liquids such as tea, cola or bouillon until all nausea has subsided; you may then resume your normal diet. Special Care: * Light bleeding and vaginal spotting can last from a few days to 3-4 weeks. Call your doctor if bleeding becomes heavier than the heaviest part of your period. * Check your temperature twice a day for one week. If it goes above 100.4 degrees Fahrenheit (38.0 Celsius), notify your doctor. * Call your doctor's office for an appointment for 6 weeks after your surgery. FOLLOW-UP VISIT: Call your doctor's office for an appointment for 6 weeks after your surgery. Diet Recommendations Recommended Home Diet: no limitations, resume previous diet Procedures Procedures Performed: Suction Dilation and Evacuation Pending Studies Studies pending at discharge: no Medical Emergencies . Who to Call and When: Medical Emergencies: If at any time you feel your situation is an emergency, please call 911 immediately. . Non-Emergent Contact Non-Emergency issues call your: Primary Care Provider, [facility] . . "Provider Documentation" section prepared by Nathaniel Aragon. . [facility] Drug Monitoring Program Search Results: patient reviewed within database, no issues identified
[2018-01-31] MEDS: FENTANYL CITRATE INJ 50 MCG/1 ML 2 ML VIAL IV PRN ×2 (08:58→09:05)
--- NOTE | 2018-01-31 09:10 | OPERATIVE REPORT ---
DATE OF OPERATION: 01/31/2018 PREOPERATIVE DIAGNOSIS: First trimester missed . POSTOPERATIVE DIAGNOSES: Same. OPERATIVE PROCEDURE: Suction dilation and evacuation. SURGEON: Dr. Nathaniel Aragon. INSOLE DEPARTMENT WORKER: None. ANESTHESIA: General. ESTIMATED BLOOD LOSS: 200 mL. IV FLUIDS: 1000 mL crystalloids. URINE OUTPUT: 100 mL clear yellow urine. SPECIMENS: Products of conception to pathology. DRAINS: None. COMPLICATIONS: None. DISPOSITION: Recovery room. OPERATIVE FINDINGS: On bimanual examination, her uterus was at midline and freely mobile, approximately 11 weeks' gestation. Uterus sounded to 11 cm. Utilizing a size 10 suction curette, a thorough curettage of the cavity was performed, obtaining a moderate amount of products of conception, which was all sent to pathology. Once the cavity was evacuated under suction, a thorough curettage with a large Silva curette was performed, obtaining a minimal amount of tissue. The procedure was found to be complete. The patient tolerated the procedure well and was sent to recovery with stable vital signs. OPERATIVE PROCEDURE IN DETAIL: The patient was taken to the operating room, where general anesthesia was administered. Once anesthesia was found to be adequate, the patient was placed in a dorsal lithotomy position and was prepped and draped in a manner appropriate for the procedure. The bladder was drained of clear yellow urine. A weighted speculum was then placed into the vagina. Anterior lip of the cervix was grasped with a single tooth tenaculum. The cervix was then dilated using Winifred dilators. Using a size 10 suction curette, a thorough curettage of the endometrial cavity was performed under suction, obtaining a moderate amount of products of conception. Multiple passes were performed. Once the cavity was completely evacuated, the suction curette was removed and the cervix was then gradually dilated further. Utilizing a large Silva curette, a thorough curettage of the cavity was performed obtaining no further products of conception. At this point, the procedure was found to be complete. All instruments were removed from the vagina. Excellent hemostasis was noted at the completion of the procedure. All sponge and instrument counts found to be correct x2. The patient tolerated the procedure well and was sent to recovery with stable vital signs. I attest to the content of the Intraoperative Record and any orders documented therein. Any exception s are noted below.
[2018-01-31 09:35] VITALS: BP 117/77; PULSE 82; TEMP 36.7; O2SAT 97
--- NOTE | 2018-01-31 09:46 | Anesthesiology Progress Note ---
Anesthesia Post Op Note Date & Time Jan 31, 2018 at 09:46 Vital Signs Pain Intensity: 2 Vital Signs Past 12 Hours Date Time Temp Pulse Resp B/P (MAP) Pulse Ox O2 Delivery O2 Flow Rate FiO2 01/31/18 09:20 36.4 82 16 129/88 95 Room Air 01/31/18 09:10 83 16 130/87 100 Oxymask 7 01/31/18 09:00 95 16 118/81 100 Oxymask 7 01/31/18 08:50 36.5 80 16 125/82 100 Oxymask 7 01/31/18 06:44 37.1 86 20 130/81 (97) 98 Room Air Notes Mental Status: alert / awake / arousable, participated in evaluation Pt Amnestic to Procedure: Yes Nausea / Vomiting: adequately controlled Pain: adequately controlled Airway Patency, RR, SpO2: stable & adequate BP & HR: stable & adequate Hydration State: stable & adequate Anesthetic Complications: no major complications apparent Awake, doing well, no complaints. VSS.
[2018-01-31 10:05] VITALS: BP 123/84; PULSE 87; TEMP 36.7; O2SAT 99
== END | disposition home or self-care (01) ==
LOC: C.ACU 06:19
PROVIDERS: ATTEND Obstetrics & Gynecology
DX: O02.1 Missed abortion (principal); D69.6 Thrombocytopenia, unspecified; J45.909 Unspecified asthma, uncomplicated; I10 Essential (primary) hypertension; E66.9 Obesity, unspecified; G62.9 Polyneuropathy, unspecified; F17.210 Nicotine dependence, cigarettes, uncomplicated; Z83.3 Family history of diabetes mellitus; Z82.49 Family history of ischemic heart disease and other diseases of the circulatory system

== ENCOUNTER 2019-09-08 10:31 | Inpatient (IN) ==
[2019-09-08 11:43] LABS: Nucleated RBC # (auto) 0.03 K/uL (0-0); Nucleated RBC % (auto) 0.2 %
[2019-09-08 11:52] LABS: Hematocrit (blood only) 33.4 % (37-47); Hemoglobin 11.7 g/dL (12.0-16.0); Mean Corpuscular Hemoglobin 30.7 pg (25-34); Mean Corpuscular Volume 87.7 fL (80-100); RDW Coefficient of Variation 14.9 % (11.5-14.5); RDW Standard Deviation 47.6 fL (36.4-46.3); Red Blood Count 3.81 M/uL (4.2-5.4); White Blood Count 10.79 K/uL (4.8-10.8)
[2019-09-08 12:01] LABS: BUN Creatinine Ratio 11.4 (10-20); Calcium 8.6 mg/dl (8.5-10.1); Creatinine Clr Calc Pharmacy 59.1 ml/min; Est GFR (African American) 51.6; Est GFR (Non-African American) 44.5; Potassium 4.2 mmol/L (3.5-5.1); Uric Acid 7.9 mg/dl (2.6-7.2)
[2019-09-08 12:13] LABS: Basophils # (auto) 0.03 K/uL (0-0.2); Basophils % (auto) 0.3 %; Eosinophils # (auto) 0.21 K/uL (0-0.5); Eosinophils % (auto) 1.9 %; Immature Granulocytes % (auto) 3.7 %; Lymphocytes # (auto) 1.48 K/uL (1.2-3.4); Lymphocytes % (auto) 13.7 %; Monocytes # (auto) 0.77 K/uL (0.11-0.59); Monocytes % (auto) 7.1 %; Neutrophils % (auto) 73.3 %; Platelet Count 60 K/uL (130-400); Platelet Estimate Decreased (Normal); Tear Drop Cells 1+
[2019-09-08] MEDS ORDERED: INFLUENZA ADMINISTRATION CHARGE ONE (14:00)
[2019-09-08] MEDS ORDERED: INFLUENZA VIRUS QUAD VACCINE 0.5 ML SYR IM ONE (14:00)
[2019-09-08 14:13] LABS: Creatinine Urine Random 37.8 mg/dl; Protein Creatinine Ratio Urine 0.6 (0-0.2); Total Protein Urine Random 21.7 mg/dl (0-11.9)
[2019-09-08 14:35] LABS: Appearance Urine Clear (Clear); Bacteria Urine Automated Negative (Negative); Bilirubin Urine Negative (Negative); Blood Urine Negative (Negative); Cast Urine Automated 0 /lpf (0-5); Color Urine Yellow; Epithelial Cell Urine Auto 20-30 /lpf (0-5); Glucose Urine UA Negative (Negative); Ketones Urine Negative (Negative); Leukocyte Esterase Urine Negative (Negative); Nitrite Urine Negative (Negative); Protein Urine Trace (Negative); RBC Urine Automated 0-4 /hpf (0-4); Specific Gravity Urine 1.008 (1.000-1.030); Urobilinogen Urine Negative (Negative); pH Urine 6.5 (4.5-7.5)
[2019-09-08] MEDS ORDERED: LACTATED RINGER'S 1,000 ML IV PRN (15:02)
[2019-09-08] MEDS ORDERED: MAGNESIUM SULFATE 4GM / WTR 100 ML BAG IV ONE (15:02)
[2019-09-08] MEDS ORDERED: miSOPROStol 25 MCG TAB PV ONE (15:02)
[2019-09-08] MEDS ORDERED: OXYTOCIN 30 UNITS/500 ML BAG IV PRN (15:02)
--- NOTE | 2019-09-08 15:16 | Obstetrical Progress Note ---
Date of Service September 08, 2019 Assessment & Plan (1) Chronic hypertension affecting : Present on Admission?: Yes (2) Antiphospholipid antibody syndrome complicating : Present on Admission?: Yes (3) Pre-eclampsia added to pre-existing hypertension: Will induce labor with Cytotec Present on Admission?: Yes Physical Exam Physical Exam: Admit Note 33 F [id number] at 37.2 weeks admitted from office with elevated BP and RUQ pain and headache. Patient is on Labetalol 200mg PO bid along with Heparin 5,000 Units which she last took this AM. Labs are consistent with chronic hypertension with pre-eclampsia with severe features. Has some visual floaters. No edema noted. Cervix 1/50/-3/vertex/mid-position/firm. Will start on Magnesium sulfate and Cytotec for cervical ripening. Results & Data Vital Signs (Past 12 Hours) Vital Signs Pulse BP 09/08/19 15:06 90 176/110 H 09/08/19 14:57 79 174/96 H 09/08/19 14:36 84 143/87 H 09/08/19 14:21 82 138/87 09/08/19 14:06 82 132/73 09/08/19 13:51 85 134/75 09/08/19 13:22 85 144/89 H 09/08/19 13:07 83 155/96 H 09/08/19 12:52 86 150/93 H 09/08/19 12:39 89 151/94 H 09/08/19 12:38 86 158/98 H 09/08/19 12:24 76 148/88 H 09/08/19 12:09 90 176/99 H 09/08/19 11:52 83 134/79 09/08/19 11:37 89 137/88 09/08/19 11:29 93 H 143/84 H 09/08/19 11:22 90 150/86 H 09/08/19 11:08 88 163/104 H 09/08/19 10:37 92 H 175/112 H Laboratory Results 09/08/19 09/08/19 09/08/19 11:32 11:32 11:32 WBC 10.79 RBC 3.81 L Hgb 11.7 L Hct 33.4 L MCV 87.7 MCH 30.7 MCHC 35.0 RDW Std Deviation 47.6 H RDW Coeff of Camilla 14.9 H Plt Count 60 L Immature Gran % (Auto) 3.7 Neut % (Auto) 73.3 Lymph % (Auto) 13.7 [place] % (Auto) 7.1 Eos % (Auto) 1.9 Baso % (Auto) 0.3 Immature Gran # (Auto) 0.40 H Neut # (Auto) 7.90 H Lymph # (Auto) 1.48 [place] # (Auto) 0.77 H Eos # (Auto) 0.21 Baso # (Auto) 0.03 Absolute Nucleated RBC 0.03 H Nucleated RBC % (auto) 0.2 Platelet Estimate Decreased L Tear Drop Cells 1+ Sodium 138 Potassium 4.2 Chloride 107 Carbon Dioxide 23 Anion Gap 8.0 BUN 18 Creatinine 1.54 H Est Cr Clr Drug Dosing 59.1 Est GFR ( Amer) 51.6 Est GFR (Non-Af Amer) 44.5 BUN/Creatinine Ratio 11.4 Glucose 95 Uric Acid 7.9 H Calcium 8.6 AST 22 ALT 32 Lactate Dehydrogenase 200 Urine Color Urine Appearance Urine pH Ur Specific [place] Urine Protein Urine Glucose (UA) Urine Ketones Urine Blood Urine Nitrite Urine Bilirubin Urine Urobilinogen Ur Leukocyte Esterase Urine WBC (Auto) Urine RBC (Auto) U Hyaline Cast (Auto) U Epithel Cells (Auto) Urine Bacteria (Auto) Ur Random Creatinine U Random Total Protein Protein/Creatinin Ratio 09/08/19 09/08/19 13:40 13:40 WBC RBC Hgb Hct MCV MCH MCHC RDW Std Deviation RDW Coeff of Camilla Plt Count Immature Gran % (Auto) Neut % (Auto) Lymph % (Auto) [place] % (Auto) Eos % (Auto) Baso % (Auto) Immature Gran # (Auto) Neut # (Auto) Lymph # (Auto) [place] # (Auto) Eos # (Auto) Baso # (Auto) Absolute Nucleated RBC Nucleated RBC % (auto) Platelet Estimate Tear Drop Cells Sodium Potassium Chloride Carbon Dioxide Anion Gap BUN Creatinine Est Cr Clr Drug Dosing Est GFR ( Amer) Est GFR (Non-Af Amer) BUN/Creatinine Ratio Glucose Uric Acid Calcium AST ALT Lactate Dehydrogenase Urine Color Yellow Urine Appearance Clear Urine pH 6.5 Ur Specific [place] 1.008 Urine Protein Trace H Urine Glucose (UA) Negative Urine Ketones Negative Urine Blood Negative Urine Nitrite Negative Urine Bilirubin Negative Urine Urobilinogen Negative Ur Leukocyte Esterase Negative Urine WBC (Auto) 1-5 Urine RBC (Auto) 0-4 U Hyaline Cast (Auto) 0 U Epithel Cells (Auto) 20-30 H Urine Bacteria (Auto) Negative Ur Random Creatinine 37.8 U Random Total Protein 21.7 H Protein/Creatinin Ratio 0.6 H
[2019-09-08] MEDS: LACTATED RINGER'S 1,000 ML IV SCH (15:29)
[2019-09-08 15:31] LABS: Nucleated RBC # (auto) 0.02 K/uL (0-0); Nucleated RBC % (auto) 0.2 %
[2019-09-08 15:55] LABS: Hematocrit (blood only) 33.9 % (37-47); Mean Corpuscular Hemoglobin 30.8 pg (25-34); Mean Corpuscular Hgb Conc 35.4 g/dL (32-36); Mean Corpuscular Volume 86.9 fL (80-100); Platelet Count 66 K/uL (130-400); Platelet Estimate Decreased (Normal); RDW Coefficient of Variation 14.8 % (11.5-14.5); RDW Standard Deviation 46.6 fL (36.4-46.3); White Blood Count 11.99 K/uL (4.8-10.8)
[2019-09-08] MEDS: MAGNESIUM SULFATE / WTR 40 GM/1,000 ML BAG IV SCH (16:09)
--- NOTE | 2019-09-08 16:35 | Obstetrical Progress Note ---
Date of Service September 08, 2019 Physical Exam Physical Exam: Cytotec 25 mcg placed vaginally. FHT Cat 1. Magnesium started. Results & Data Vital Signs (Past 12 Hours) Vital Signs Pulse BP 09/08/19 16:17 88 146/83 H 09/08/19 16:13 90 141/89 H 09/08/19 16:09 85 137/85 09/08/19 16:03 93 H 156/89 H 09/08/19 15:58 90 146/83 H 09/08/19 15:52 86 146/80 H 09/08/19 15:50 82 157/86 H 09/08/19 15:48 87 149/85 H 09/08/19 15:46 78 155/89 H 09/08/19 15:44 87 165/93 H 09/08/19 15:40 86 190/108 H 09/08/19 15:38 83 185/121 H 09/08/19 15:36 88 182/118 H 09/08/19 15:34 82 175/119 H 09/08/19 15:32 83 193/120 H 09/08/19 15:22 90 173/105 H 09/08/19 15:06 90 176/110 H 09/08/19 14:57 79 174/96 H 09/08/19 14:36 84 143/87 H 09/08/19 14:21 82 138/87 09/08/19 14:06 82 132/73 09/08/19 13:51 85 134/75 09/08/19 13:22 85 144/89 H 09/08/19 13:07 83 155/96 H 09/08/19 12:52 86 150/93 H 09/08/19 12:39 89 151/94 H 09/08/19 12:38 86 158/98 H 09/08/19 12:24 76 148/88 H 09/08/19 12:09 90 176/99 H 09/08/19 11:52 83 134/79 09/08/19 11:37 89 137/88 09/08/19 11:29 93 H 143/84 H 09/08/19 11:22 90 150/86 H 09/08/19 11:08 88 163/104 H 09/08/19 10:37 92 H 175/112 H
--- NOTE | 2019-09-08 21:13 | Obstetrical Progress Note ---
Date of Service September 08, 2019 Physical Exam Genitourinary: Manual OB Exam: + cervical dilation 2 cm and 3 cm, + cervical effacement 70%, + station high and + amniotic fluid clear OB Exam Monitor Tracing: + external FHT monitor used, + external uterine monitor used and + category I SROM clear fluid Results & Data Vital Signs (Past 12 Hours) Vital Signs Temp Pulse Resp BP Pulse Ox 09/08/19 21:02 83 183/104 H 09/08/19 20:48 82 188/108 H 09/08/19 20:33 86 182/117 H 09/08/19 20:18 85 182/117 H 09/08/19 20:02 79 155/94 H 09/08/19 20:00 18 09/08/19 19:47 76 153/83 H 09/08/19 19:33 87 167/86 H 09/08/19 19:17 83 174/103 H 09/08/19 19:03 82 179/114 H 09/08/19 19:00 36.7 C 18 100 09/08/19 18:47 82 159/102 H 09/08/19 18:32 81 168/101 H 09/08/19 18:30 16 09/08/19 18:17 86 160/106 H 09/08/19 18:02 85 157/104 H 09/08/19 18:00 36.7 C 16 09/08/19 17:47 89 161/106 H 09/08/19 17:32 87 156/98 H 09/08/19 17:30 16 09/08/19 17:17 93 H 141/84 H 09/08/19 17:02 80 148/86 H 09/08/19 17:00 36.8 C 16 09/08/19 16:47 81 138/79 09/08/19 16:45 16 09/08/19 16:32 93 H 149/95 H 09/08/19 16:30 16 09/08/19 16:17 88 146/83 H 09/08/19 16:15 20 09/08/19 16:13 90 141/89 H 09/08/19 16:09 85 137/85 09/08/19 16:03 93 H 156/89 H 09/08/19 16:00 18 09/08/19 15:58 90 146/83 H 09/08/19 15:52 86 146/80 H 09/08/19 15:50 82 157/86 H 09/08/19 15:48 87 149/85 H 09/08/19 15:46 78 155/89 H 09/08/19 15:45 18 09/08/19 15:44 87 165/93 H 09/08/19 15:40 86 190/108 H 09/08/19 15:38 83 185/121 H 09/08/19 15:36 88 182/118 H 09/08/19 15:34 82 175/119 H 09/08/19 15:32 83 193/120 H 09/08/19 15:30 36.7 C 16 09/08/19 15:22 90 173/105 H 09/08/19 15:06 90 176/110 H 09/08/19 14:57 79 174/96 H 09/08/19 14:36 84 143/87 H 09/08/19 14:21 82 138/87 09/08/19 14:06 82 132/73 09/08/19 13:51 85 134/75 09/08/19 13:22 85 144/89 H 09/08/19 13:07 83 155/96 H 09/08/19 12:52 86 150/93 H 09/08/19 12:39 89 151/94 H 09/08/19 12:38 86 158/98 H 09/08/19 12:24 76 148/88 H 09/08/19 12:09 90 176/99 H 09/08/19 11:52 83 134/79 09/08/19 11:37 89 137/88 09/08/19 11:29 93 H 143/84 H 09/08/19 11:22 90 150/86 H 09/08/19 11:08 88 163/104 H 09/08/19 10:37 92 H 175/112 H
[2019-09-08] MEDS: BUTORPHANOL TARTRATE 1 MG/ML VIAL IV PRN ×2 (21:27→23:28)
[2019-09-08 21:53] LABS: Hematocrit (blood only) 35.7 % (37-47); Hemoglobin 12.4 g/dL (12.0-16.0); Mean Corpuscular Hemoglobin 30.3 pg (25-34); Mean Corpuscular Hgb Conc 34.7 g/dL (32-36); Mean Corpuscular Volume 87.3 fL (80-100); Platelet Count 69 K/uL (130-400); Platelet Estimate Decreased (Normal); RDW Coefficient of Variation 14.7 % (11.5-14.5); RDW Standard Deviation 46.5 fL (36.4-46.3); Red Blood Count 4.09 M/uL (4.2-5.4); White Blood Count 13.04 K/uL (4.8-10.8)
[2019-09-09] MEDS: BUTORPHANOL TARTRATE 1 MG/ML VIAL IV PRN ×2 (01:30→04:59)
[2019-09-09] MEDS ORDERED: OXYTOCIN 30 UNITS/500 ML BAG IV PRN ×2 (01:47→10:47)
--- NOTE | 2019-09-09 01:49 | Obstetrical Progress Note ---
Date of Service September 09, 2019 Physical Exam Physical Exam: Cervix remains at 4 cm. Will start Oxytocin to augment contractions. EFW 8 lbs. FHT Cat 1. Results & Data Vital Signs (Past 12 Hours) Vital Signs Temp Pulse Resp BP Pulse Ox 09/09/19 01:45 75 96 09/09/19 01:40 72 149/83 H 96 09/09/19 01:35 76 96 09/09/19 01:34 78 160/98 H 09/09/19 01:30 36.6 C 77 18 99 09/09/19 01:26 86 174/101 H 09/09/19 01:25 89 98 09/09/19 01:20 90 98 09/09/19 01:15 87 100 09/09/19 01:10 101 H 167/102 H 100 09/09/19 01:09 102 H 92 09/09/19 01:05 95 H 100 09/09/19 01:00 93 H 16 98 09/09/19 00:55 89 169/103 H 99 09/09/19 00:50 98 H 98 09/09/19 00:45 80 98 09/09/19 00:40 75 98 09/09/19 00:39 87 155/90 H 09/09/19 00:35 88 97 09/09/19 00:30 82 16 97 09/09/19 00:29 93 H 151/81 H 09/09/19 00:25 77 97 09/09/19 00:20 78 97 09/09/19 00:19 82 147/85 H 09/09/19 00:15 76 97 09/09/19 00:10 92 H 95 09/09/19 00:09 82 138/86 09/09/19 00:05 88 98 09/09/19 00:00 83 16 95 09/08/19 23:59 82 138/86 09/08/19 23:58 75 94 09/08/19 23:55 85 98 09/08/19 23:50 96 H 98 09/08/19 23:49 81 160/98 H 09/08/19 23:45 93 H 166/109 H 98 09/08/19 23:38 83 159/101 H 09/08/19 23:32 86 167/103 H 09/08/19 23:21 92 H 170/109 H 09/08/19 23:20 91 H 184/124 H 09/08/19 23:15 36.5 C 18 09/08/19 23:03 83 159/93 H 09/08/19 23:00 18 09/08/19 22:47 88 158/95 H 09/08/19 22:32 80 152/93 H 09/08/19 22:18 81 153/93 H 09/08/19 22:03 80 158/92 H 09/08/19 22:00 18 09/08/19 21:47 88 170/95 H 09/08/19 21:33 90 166/94 H 09/08/19 21:17 83 175/102 H 09/08/19 21:02 83 183/104 H 09/08/19 21:00 36.9 C 18 09/08/19 20:48 82 188/108 H 09/08/19 20:33 86 182/117 H 09/08/19 20:18 85 182/117 H 09/08/19 20:10 83 183/104 H 09/08/19 20:02 79 155/94 H 09/08/19 20:00 18 09/08/19 19:47 76 153/83 H 09/08/19 19:33 87 167/86 H 09/08/19 19:17 83 174/103 H 09/08/19 19:03 82 179/114 H 09/08/19 19:00 36.7 C 18 100 09/08/19 18:47 82 159/102 H 09/08/19 18:32 81 168/101 H 09/08/19 18:30 16 09/08/19 18:17 86 160/106 H 09/08/19 18:02 85 157/104 H 09/08/19 18:00 36.7 C 16 09/08/19 17:47 89 161/106 H 09/08/19 17:32 87 156/98 H 09/08/19 17:30 16 09/08/19 17:17 93 H 141/84 H 09/08/19 17:02 80 148/86 H 09/08/19 17:00 36.8 C 16 09/08/19 16:47 81 138/79 09/08/19 16:45 16 09/08/19 16:32 93 H 149/95 H 09/08/19 16:30 16 09/08/19 16:17 88 146/83 H 09/08/19 16:15 20 09/08/19 16:13 90 141/89 H 09/08/19 16:09 85 137/85 09/08/19 16:03 93 H 156/89 H 09/08/19 16:00 18 09/08/19 15:58 90 146/83 H 09/08/19 15:52 86 146/80 H 09/08/19 15:50 82 157/86 H 09/08/19 15:48 87 149/85 H 09/08/19 15:46 78 155/89 H 09/08/19 15:45 18 09/08/19 15:44 87 165/93 H 09/08/19 15:40 86 190/108 H 09/08/19 15:38 83 185/121 H 09/08/19 15:36 88 182/118 H 09/08/19 15:34 82 175/119 H 09/08/19 15:32 83 193/120 H 09/08/19 15:30 36.7 C 16 09/08/19 15:22 90 173/105 H 09/08/19 15:06 90 176/110 H 09/08/19 14:57 79 174/96 H 09/08/19 14:36 84 143/87 H 09/08/19 14:21 82 138/87 09/08/19 14:06 82 132/73 09/08/19 13:51 85 134/75
[2019-09-09] MEDS ORDERED: LABETALOL HCL IV 5 MG/ML 20ML IV STA ×2 (02:58→03:54)
--- NOTE | 2019-09-09 03:23 | Obstetrical Progress Note ---
Date of Service September 09, 2019 Physical Exam Genitourinary: Manual OB Exam: + cervical dilation 4 cm, + cervical effacement 80% and + station high OB Exam Monitor Tracing: + external FHT monitor used, + scalp electrode used, + external uterine monitor used and + category I Internal scalp lead applied due to inability to monitor FHR due to body habitus and positioning on side Results & Data Vital Signs (Past 12 Hours) Vital Signs Temp Pulse Resp BP Pulse Ox 09/09/19 03:15 99 H 99 09/09/19 03:10 88 180/116 H 99 09/09/19 03:05 85 98 09/09/19 03:00 81 98 09/09/19 02:57 92 H 178/126 H 09/09/19 02:55 94 H 176/125 H 100 09/09/19 02:50 86 172/114 H 100 09/09/19 02:45 88 99 09/09/19 02:44 95 H 94 09/09/19 02:40 87 167/104 H 98 09/09/19 02:35 83 97 09/09/19 02:34 109 H 94 09/09/19 02:30 80 16 97 09/09/19 02:25 78 166/97 H 97 09/09/19 02:20 81 97 09/09/19 02:15 86 97 09/09/19 02:10 87 151/96 H 96 09/09/19 02:05 100 H 97 09/09/19 02:00 73 16 96 09/09/19 01:55 77 151/89 H 96 09/09/19 01:50 80 98 09/09/19 01:45 75 96 09/09/19 01:40 72 149/83 H 96 09/09/19 01:35 76 96 09/09/19 01:34 78 160/98 H 09/09/19 01:30 36.6 C 77 18 99 09/09/19 01:26 86 174/101 H 09/09/19 01:25 89 98 09/09/19 01:20 90 98 09/09/19 01:15 87 100 09/09/19 01:10 101 H 167/102 H 100 09/09/19 01:09 102 H 92 09/09/19 01:05 95 H 100 09/09/19 01:00 93 H 16 98 09/09/19 00:55 89 169/103 H 99 09/09/19 00:50 98 H 98 09/09/19 00:45 80 98 09/09/19 00:40 75 98 09/09/19 00:39 87 155/90 H 09/09/19 00:35 88 97 09/09/19 00:30 82 16 97 09/09/19 00:29 93 H 151/81 H 09/09/19 00:25 77 97 09/09/19 00:20 78 97 09/09/19 00:19 82 147/85 H 09/09/19 00:15 76 97 09/09/19 00:10 92 H 95 09/09/19 00:09 82 138/86 09/09/19 00:05 88 98 09/09/19 00:00 83 16 95 09/08/19 23:59 82 138/86 09/08/19 23:58 75 94 09/08/19 23:55 85 98 09/08/19 23:50 96 H 98 09/08/19 23:49 81 160/98 H 09/08/19 23:45 93 H 166/109 H 98 09/08/19 23:38 83 159/101 H 09/08/19 23:32 86 167/103 H 09/08/19 23:21 92 H 170/109 H 09/08/19 23:20 91 H 184/124 H 09/08/19 23:15 36.5 C 18 09/08/19 23:03 83 159/93 H 09/08/19 23:00 18 09/08/19 22:47 88 158/95 H 09/08/19 22:32 80 152/93 H 09/08/19 22:18 81 153/93 H 09/08/19 22:03 80 158/92 H 09/08/19 22:00 18 09/08/19 21:47 88 170/95 H 09/08/19 21:33 90 166/94 H 09/08/19 21:17 83 175/102 H 09/08/19 21:02 83 183/104 H 09/08/19 21:00 36.9 C 18 09/08/19 20:48 82 188/108 H 09/08/19 20:33 86 182/117 H 09/08/19 20:18 85 182/117 H 09/08/19 20:10 83 183/104 H 09/08/19 20:02 79 155/94 H 09/08/19 20:00 18 09/08/19 19:47 76 153/83 H 09/08/19 19:33 87 167/86 H 09/08/19 19:17 83 174/103 H 09/08/19 19:03 82 179/114 H 09/08/19 19:00 36.7 C 18 100 09/08/19 18:47 82 159/102 H 09/08/19 18:32 81 168/101 H 09/08/19 18:30 16 09/08/19 18:17 86 160/106 H 09/08/19 18:02 85 157/104 H 09/08/19 18:00 36.7 C 16 09/08/19 17:47 89 161/106 H 09/08/19 17:32 87 156/98 H 09/08/19 17:30 16 09/08/19 17:17 93 H 141/84 H 09/08/19 17:02 80 148/86 H 09/08/19 17:00 36.8 C 16 09/08/19 16:47 81 138/79 09/08/19 16:45 16 09/08/19 16:32 93 H 149/95 H 09/08/19 16:30 16 09/08/19 16:17 88 146/83 H 09/08/19 16:15 20 09/08/19 16:13 90 141/89 H 09/08/19 16:09 85 137/85 09/08/19 16:03 93 H 156/89 H 09/08/19 16:00 18 09/08/19 15:58 90 146/83 H 09/08/19 15:52 86 146/80 H 09/08/19 15:50 82 157/86 H 09/08/19 15:48 87 149/85 H 09/08/19 15:46 78 155/89 H 09/08/19 15:45 18 09/08/19 15:44 87 165/93 H 09/08/19 15:40 86 190/108 H 09/08/19 15:38 83 185/121 H 09/08/19 15:36 88 182/118 H 09/08/19 15:34 82 175/119 H 09/08/19 15:32 83 193/120 H 09/08/19 15:30 36.7 C 16 09/08/19 15:22 90 173/105 H
[2019-09-09] MEDS ORDERED: Nursing to Pharmacy Communication ONE (04:53)
[2019-09-09] MEDS: LACTATED RINGER'S 1,000 ML IV SCH ×2 (05:02→14:17)
[2019-09-09 06:37] LABS: Alanine Aminotransferase 33 U/L (12-78); Albumin Globulin Ratio 0.7 (0.9-2); Albumin Level 2.9 gm/dl (3.4-5.0); Alkaline Phosphatase 134 U/L (45-117); Aspartate Aminotransferase 23 U/L (15-37); BUN Creatinine Ratio 9.7 (10-20); Bilirubin Direct < 0.1 mg/dl (0-0.2); Bilirubin,Total 0.4 mg/dl (0.2-1); Blood Urea Nitrogen 15 mg/dl (7-18); Calcium 8.1 mg/dl (8.5-10.1); Carbon Dioxide 24 mmol/L (21-32); Chloride 100 mmol/L (98-107); Creatinine Clr Calc Pharmacy 59.1 ml/min; Est GFR (African American) 51.6; Est GFR (Non-African American) 44.5; Globulin 4.1 gm/dl (2.5-4.0); Glucose 89 mg/dl (70-99); Magnesium Therapeutic L&D Only 7.8 mg/dL (4.0-8.0); Potassium 4.4 mmol/L (3.5-5.1); Sodium 133 mmol/L (136-145); Uric Acid 8.3 mg/dl (2.6-7.2)
[2019-09-09 06:38] LABS: Hematocrit (blood only) 35.9 % (37-47); Hemoglobin 12.5 g/dL (12.0-16.0); Mean Corpuscular Hemoglobin 30.4 pg (25-34); Mean Corpuscular Hgb Conc 34.8 g/dL (32-36); Mean Corpuscular Volume 87.3 fL (80-100); Platelet Count 68 K/uL (130-400); RDW Coefficient of Variation 14.9 % (11.5-14.5); RDW Standard Deviation 47.2 fL (36.4-46.3); Red Blood Count 4.11 M/uL (4.2-5.4); White Blood Count 13.75 K/uL (4.8-10.8)
[2019-09-09 06:41] LABS: Basophils # (auto) 0.03 K/uL (0-0.2); Basophils % (auto) 0.2 %; Eosinophils # (auto) 0.17 K/uL (0-0.5); Eosinophils % (auto) 1.2 %; Immature Granulocytes # (auto) 0.34 K/uL (0.00-0.02); Immature Granulocytes % (auto) 2.5 %; Lymphocytes # (auto) 1.32 K/uL (1.2-3.4); Lymphocytes % (auto) 9.6 %; Monocytes # (auto) 0.66 K/uL (0.11-0.59); Monocytes % (auto) 4.8 %; Neutrophils # (auto) 11.23 K/uL (1.4-6.5); Neutrophils % (auto) 81.7 %; Platelet Estimate Decreased (Normal)
[2019-09-09] MEDS ORDERED: LABETALOL HCL 200 MG TAB PO SCH ×2 (09:00→21:00)
[2019-09-09] MEDS ORDERED: DIPHTHERIA/TETANUS/PERTUSSIS 0.5 ML SYR/VIAL IM ONE (10:47)
[2019-09-09] MEDS ORDERED: BISACODYL 10 MG SUPP PR PRN (10:47)
[2019-09-09] MEDS ORDERED: miSOPROStol 200 MCG TAB PR ONE (10:47)
[2019-09-09] MEDS ORDERED: miSOPROStol 200 MCG TAB PR SCH (10:47)
[2019-09-09] MEDS ORDERED: OXYCODONE/ACETAMINOPHEN 5mg/325mg TAB PO PRN (10:47)
[2019-09-09] MEDS ORDERED: BENZOCAINE 20% AER SPR 82.5 GM CAN EXT PRN (10:47)
[2019-09-09] MEDS ORDERED: HYDROCORTISONE ACETATE 25 MG SUPP PR PRN (10:47)
[2019-09-09] MEDS ORDERED: ACETAMINOPHEN W/CODEINE #3 1 TAB PO PRN (10:47)
[2019-09-09] MEDS ORDERED: SUPERCREAM 0.870% 15 GM JAR EXT PRN (10:47)
--- NOTE | 2019-09-09 11:09 | Delivery Summary ---
DATE OF OPERATION: 09/09/2019 The patient was admitted for induction of labor due to hypertension at 37 weeks 3 days. Blood type is O positive. She is a 7, para 2. has been complicated by the diagnoses of clotting disorder and hypertension. She has been on labetalol 200 twice a day, also on Lovenox and baby aspirin. She switched off the Lovenox about 2 weeks prior to admission. She continued to take baby aspirin. She was seen in the office and was sent up for induction due to elevated blood pressure. Once she reached [facility], she was placed on magnesium sulfate along with several doses of labetalol to keep her blood pressure in the acceptable range. Also IV Pitocin. She contracted steady. We were unable to give her epidural due to low platelets and her bleeding risk. She went to full dilatation, pushed out a live male via direct occiput anterior position over an intact perineum. Nuchal cord around the neck tight 3 times, had to be clamped and cut prior to delivery. Shoulders were then delivered without difficulty. Infant was suctioned through the mouth and the nose. Cord blood was taken. With IV Pitocin running, placenta was removed intact. Inspection of the perineum revealed a first degree laceration. This was repaired anatomically with heavy Vicryl. Vicryl was used to approximate the vaginal mucosa out to beyond the hymenal ring. Deep suture was used to approximate the bulbocavernosus muscle, separate deep suture was used to approximate the perineal body and a running subcuticular suture used to approximate the perineal skin edges. Following this, vaginal exam revealed no hematoma formation, showed a lot of clots that were expelled from the uterus, and along with IV Pitocin, I gave her 1000 mg of Cytotec rectally. Estimated blood loss was 400 mL and Apgars are deferred to the nurses. I attest to the content of the Intraoperative Record and any orders documented therein. Any exception s are noted below.
[2019-09-09] MEDS: IBUPROFEN 600 MG TAB PO PRN ×2 (13:20→17:13)
[2019-09-09] MEDS: LABETALOL HCL 200 MG TAB PO SCH ×2 (13:20→21:47)
[2019-09-09] MEDS: ACETAMINOPHEN 325 MG TAB PO PRN (15:07)
[2019-09-09] MEDS: OXYTOCIN 20 UNITS in LACTATED RINGER'S 1,000 ML IV PRN (15:27)
[2019-09-09] MEDS: MAGNESIUM SULFATE / WTR 40 GM/1,000 ML BAG IV SCH (18:35)
[2019-09-09] MEDS: DOCUSATE SODIUM 100 MG CAP PO SCH (21:47)
[2019-09-09] MEDS: ENOXAPARIN INJ 40 MG/0.4 ML SYR SQ SCH (22:44)
[2019-09-10] MEDS: OXYTOCIN 20 UNITS in LACTATED RINGER'S 1,000 ML IV PRN (01:00)
[2019-09-10] MEDS: IBUPROFEN 600 MG TAB PO PRN ×3 (02:46→18:00)
[2019-09-10 07:09] LABS: Hematocrit (blood only) 28.6 % (37-47); Hemoglobin 9.7 g/dL (12.0-16.0); Mean Corpuscular Hemoglobin 29.9 pg (25-34); Mean Corpuscular Hgb Conc 33.9 g/dL (32-36); Mean Corpuscular Volume 88.3 fL (80-100); Mean Platelet Volume 12.5 fL (7.4-10.4); Platelet Count 75 K/uL (130-400); RDW Coefficient of Variation 14.8 % (11.5-14.5); RDW Standard Deviation 47.4 fL (36.4-46.3); Red Blood Count 3.24 M/uL (4.2-5.4); White Blood Count 15.86 K/uL (4.8-10.8)
--- NOTE | 2019-09-10 07:53 | Obstetrical Progress Note ---
Date of Service September 10, 2019 Subjective Patient is seen and examined. She feels well, no complaints. Not OOB yet, on IV Magnesium Tolerating clear diet with out N&V Bleeding is minimal No QUIROGA/ Change in vision/ epig or RUQ pain/ fever/ chills/ CP/ SOB/ N&V/ Leg pain Bottle feeding without problems Vital Signs Temp Pulse Resp BP Pulse Ox 09/10/19 07:45 88 96 09/10/19 07:40 90 97 09/10/19 07:35 90 97 09/10/19 07:30 87 97 09/10/19 07:25 88 98 09/10/19 07:20 90 96 09/10/19 07:15 91 H 98 09/10/19 07:10 86 98 09/10/19 07:05 88 98 09/10/19 07:00 92 H 98 09/10/19 06:55 88 96 09/10/19 06:50 89 96 09/10/19 06:45 91 H 98 09/10/19 06:40 87 98 09/10/19 06:35 89 97 09/10/19 06:30 92 H 98 09/10/19 06:25 89 98 09/10/19 06:20 92 H 98 09/10/19 06:15 91 H 98 09/10/19 06:10 95 H 18 99 09/10/19 06:05 92 H 98 09/10/19 06:00 90 99 09/10/19 05:55 97 H 98 09/10/19 05:50 108 H 99 09/10/19 05:49 88 142/86 H 09/10/19 05:45 88 97 09/10/19 05:40 89 98 09/10/19 05:39 92 H 92 09/10/19 05:35 83 97 09/10/19 05:32 85 93 09/10/19 05:30 83 95 09/10/19 05:26 82 93 09/10/19 05:25 88 95 09/10/19 05:20 85 96 09/10/19 05:15 81 97 09/10/19 05:10 95 H 18 95 09/10/19 05:05 95 H 98 09/10/19 05:00 83 96 09/10/19 04:55 85 97 09/10/19 04:50 83 96 09/10/19 04:45 84 96 09/10/19 04:40 88 97 09/10/19 04:35 80 95 09/10/19 04:30 83 98 09/10/19 04:25 85 97 09/10/19 04:20 84 99 09/10/19 04:15 82 98 09/10/19 04:10 85 16 99 09/10/19 04:05 87 99 09/10/19 04:00 88 99 09/10/19 03:55 88 100 09/10/19 03:50 89 100 09/10/19 03:45 87 100 09/10/19 03:40 85 100 09/10/19 03:35 87 100 09/10/19 03:30 88 99 09/10/19 03:25 93 H 98 09/10/19 03:20 101 H 99 09/10/19 03:15 92 H 18 99 09/10/19 03:10 88 98 09/10/19 03:05 94 H 99 09/10/19 03:00 91 H 99 09/10/19 02:55 86 98 09/10/19 02:53 85 155/96 H 09/10/19 02:51 93 H 164/98 H 09/10/19 02:50 95 H 98 09/10/19 02:45 90 97 09/10/19 02:40 91 H 98 09/10/19 02:35 81 97 09/10/19 02:30 81 97 09/10/19 02:25 82 97 09/10/19 02:20 81 97 09/10/19 02:15 80 97 09/10/19 02:10 79 97 09/10/19 02:09 18 09/10/19 02:05 79 97 09/10/19 02:00 81 97 09/10/19 01:55 81 96 09/10/19 01:50 82 96 09/10/19 01:45 82 97 09/10/19 01:40 84 96 09/10/19 01:35 83 96 09/10/19 01:30 97 H 96 09/10/19 01:25 81 96 09/10/19 01:20 102 H 98 09/10/19 01:15 84 18 96 09/10/19 01:10 84 96 09/10/19 01:05 84 96 09/10/19 01:00 82 97 09/10/19 00:57 83 93 09/10/19 00:55 83 96 09/10/19 00:50 85 96 09/10/19 00:45 86 96 09/10/19 00:43 83 93 09/10/19 00:40 81 96 09/10/19 00:35 79 95 09/10/19 00:30 86 97 09/10/19 00:25 82 97 09/10/19 00:20 88 97 09/10/19 00:15 83 18 96 09/10/19 00:10 83 96 09/10/19 00:05 83 96 09/10/19 00:00 83 95 09/09/19 23:55 85 96 09/09/19 23:54 80 93 09/09/19 23:50 84 96 09/09/19 23:45 83 95 09/09/19 23:41 78 140/84 09/09/19 23:40 81 96 09/09/19 23:35 82 96 09/09/19 23:30 36.7 C 82 16 96 09/09/19 23:25 84 96 09/09/19 23:20 83 96 09/09/19 23:15 87 96 09/09/19 23:10 83 96 09/09/19 23:05 83 96 09/09/19 23:00 83 97 09/09/19 22:55 82 95 09/09/19 22:50 84 96 09/09/19 22:45 97 H 97 09/09/19 22:43 83 143/86 H 09/09/19 22:40 84 94 09/09/19 22:35 84 95 09/09/19 22:33 85 92 09/09/19 22:30 84 94 09/09/19 22:25 83 97 09/09/19 22:20 85 96 09/09/19 22:15 85 98 09/09/19 22:10 88 97 09/09/19 22:05 93 H 97 09/09/19 22:00 96 H 98 09/09/19 21:55 101 H 97 09/09/19 21:50 99 H 98 09/09/19 21:47 102 H 175/110 H 09/09/19 21:45 87 97 09/09/19 21:40 93 H 97 09/09/19 21:35 93 H 99 09/09/19 21:30 100 H 18 98 09/09/19 21:25 88 98 09/09/19 21:20 88 98 09/09/19 21:15 94 H 98 09/09/19 21:10 99 H 100 09/09/19 21:05 93 H 99 09/09/19 21:00 91 H 99 09/09/19 20:55 95 H 99 09/09/19 20:50 93 H 100 09/09/19 20:45 101 H 98 09/09/19 20:40 95 H 99 09/09/19 20:35 93 H 98 09/09/19 20:30 94 H 98 09/09/19 20:25 96 H 98 09/09/19 20:20 89 97 09/09/19 20:15 94 H 18 97 09/09/19 20:10 100 H 97 09/09/19 20:05 103 H 97 09/09/19 20:00 101 H 97 09/09/19 19:55 104 H 97 09/09/19 19:50 102 H 97 09/09/19 19:45 109 H 96 09/09/19 19:40 102 H 97 09/09/19 19:35 101 H 98 09/09/19 19:30 93 H 98 09/09/19 19:25 94 H 98 09/09/19 19:20 97 H 98 09/09/19 19:15 36.7 C 101 H 18 156/99 H 97 09/09/19 19:13 95 H 169/100 H 09/09/19 19:10 95 H 99 09/09/19 19:05 98 H 99 09/09/19 19:00 107 H 99 09/09/19 18:55 96 H 99 09/09/19 18:50 97 H 99 09/09/19 18:45 96 H 99 09/09/19 18:40 98 H 99 09/09/19 18:35 97 H 99 09/09/19 18:30 93 H 99 09/09/19 18:25 93 H 99 09/09/19 18:20 94 H 100 09/09/19 18:15 96 H 100 09/09/19 18:10 101 H 99 09/09/19 18:05 101 H 99 11/06/19 18:00 95 H 98 09/09/19 17:55 96 H 99 09/09/19 17:50 97 H 98 09/09/19 17:45 106 H 98 09/09/19 17:40 99 H 98 09/09/19 17:35 95 H 99 09/09/19 17:30 98 H 99 09/09/19 17:25 92 H 99 09/09/19 17:20 95 H 154/106 H 98 09/09/19 17:19 95 H 149/101 H 09/09/19 17:15 94 H 20 99 09/09/19 17:10 92 H 100 09/09/19 17:05 92 H 99 09/09/19 17:00 101 H 99 09/09/19 16:55 95 H 99 09/09/19 16:50 103 H 98 09/09/19 16:45 86 98 09/09/19 16:40 88 98 09/09/19 16:35 82 97 09/09/19 16:30 82 97 09/09/19 16:25 84 97 09/09/19 16:20 85 97 09/09/19 16:15 84 97 09/09/19 16:10 84 97 09/09/19 16:05 81 96 09/09/19 16:04 84 93 09/09/19 16:00 85 96 09/09/19 15:55 93 H 97 09/09/19 15:54 95 H 127/86 09/09/19 15:50 96 H 97 09/09/19 15:45 97 H 20 98 09/09/19 15:40 102 H 98 09/09/19 15:35 100 H 98 09/09/19 15:30 100 H 98 09/09/19 15:25 103 H 98 09/09/19 15:20 104 H 97 09/09/19 15:15 103 H 98 09/09/19 15:10 101 H 97 09/09/19 15:05 102 H 97 09/09/19 15:00 102 H 95 09/09/19 14:55 98 H 92 09/09/19 14:48 100 H 124/78 09/09/19 14:45 36.7 C 20 09/09/19 14:25 105 H 91 09/09/19 14:20 107 H 98 09/09/19 14:15 111 H 97 09/09/19 14:10 114 H 98 09/09/19 14:05 103 H 98 09/09/19 14:03 100 H 131/89 09/09/19 14:00 97 H 98 09/09/19 13:55 99 H 98 09/09/19 13:50 103 H 98 09/09/19 13:45 99 H 18 98 09/09/19 13:40 104 H 98 09/09/19 13:35 114 H 98 09/09/19 13:33 114 H 141/96 H 09/09/19 13:30 118 H 98 09/09/19 13:25 101 H 98 09/09/19 13:20 110 H 98 09/09/19 13:15 112 H 98 09/09/19 13:10 110 H 97 09/09/19 13:05 113 H 96 09/09/19 13:04 118 H 142/100 H 09/09/19 13:00 114 H 98 09/09/19 12:55 114 H 98 09/09/19 12:50 109 H 97 09/09/19 12:45 105 H 20 98 09/09/19 12:40 104 H 98 09/09/19 12:35 110 H 98 09/09/19 12:32 106 H 160/107 H 09/09/19 12:30 102 H 20 98 09/09/19 12:25 104 H 98 09/09/19 12:20 103 H 98 09/09/19 12:17 104 H 175/106 H 09/09/19 12:15 106 H 97 09/09/19 12:10 109 H 98 09/09/19 12:05 103 H 98 09/09/19 12:02 100 H 159/104 H 09/09/19 12:00 99 H 20 97 09/09/19 11:55 103 H 98 09/09/19 11:50 104 H 98 09/09/19 11:46 103 H 172/108 H 09/09/19 11:45 102 H 20 97 09/09/19 11:40 107 H 99 09/09/19 11:35 102 H 98 09/09/19 11:32 99 H 169/116 H 09/09/19 11:30 104 H 20 98 09/09/19 11:25 100 H 99 09/09/19 11:20 106 H 98 09/09/19 11:16 104 H 162/97 H 09/09/19 11:15 105 H 20 98 09/09/19 11:10 101 H 98 09/09/19 11:05 99 H 99 09/09/19 11:02 104 H 156/82 H 09/09/19 11:00 99 H 20 98 09/09/19 10:55 104 H 99 09/09/19 10:50 98 H 99 09/09/19 10:47 101 H 184/108 H 09/09/19 10:45 20 09/09/19 10:35 96 H 156/104 H 09/09/19 10:32 100 H 148/98 H 09/09/19 10:25 92 H 95 09/09/19 10:20 106 H 98 09/09/19 10:16 81 157/111 H 09/09/19 10:15 75 95 09/09/19 10:10 89 97 09/09/19 10:05 87 97 09/09/19 10:02 78 156/107 H 09/09/19 10:00 88 97 09/09/19 09:55 84 97 09/09/19 09:50 88 98 09/09/19 09:47 77 134/87 09/09/19 09:45 78 95 09/09/19 09:40 70 93 09/09/19 09:35 87 97 09/09/19 09:33 85 149/94 H 09/09/19 09:30 78 20 91 09/09/19 09:25 72 96 09/09/19 09:20 77 90 09/09/19 09:16 75 145/94 H 09/09/19 09:15 78 94 09/09/19 09:10 72 96 09/09/19 09:05 73 96 09/09/19 09:02 77 147/94 H 09/09/19 09:00 87 22 98 09/09/19 08:55 87 98 09/09/19 08:50 76 93 09/09/19 08:48 71 152/93 H 09/09/19 08:45 74 95 09/09/19 08:40 79 94 09/09/19 08:35 88 99 09/09/19 08:31 83 147/95 H 93 09/09/19 08:30 84 96 09/09/19 08:25 87 97 09/09/19 08:23 79 94 09/09/19 08:20 79 95 09/09/19 08:17 82 93 09/09/19 08:16 80 151/95 H 09/09/19 08:15 82 22 96 09/09/19 08:11 80 160/95 H 94 09/09/19 08:10 80 97 09/09/19 08:06 83 156/95 H 09/09/19 08:05 82 94 09/09/19 08:02 86 151/105 H 09/09/19 08:01 85 91 09/09/19 08:00 89 99 09/09/19 07:56 79 148/100 H 93 09/09/19 07:55 86 96 09/09/19 07:51 88 149/101 H 09/09/19 07:50 89 98 Intake and Output 09/09/19 09/10/19 09/10/19 22:59 06:59 14:59 Intake Total 1596.417 / 3698.667 1107.083 / 3698.667 821.250 / 821.250 Output Total 430 / 3615 2350 / 3615 Balance 1166.417 / 83.667 -1242.917 / 83.667 821.250 / 821.250 Intake: IV 1596.417 / 3698.667 1107.083 / 3698.667 821.250 / 821.250 Lr 1,000 ml @ 125 mls/hr IV . 496.667 / 1796.667 375 / 1796.667 Q8H [facility] Rx#:[id number] MAGNESIUM SULFATE / WTR 40 gm 299.167 / 449.167 93.75 / 449.167 204.583 / 204.583 In 1,000 ml @ 25 mls/hr IV . Q24H [facility] Rx#:[id number] Pitocin 20 Units In Lr 1,000 ml 316.667 / 955.000 638.333 / 955.000 616.667 / 616.667 @ 100 mls/hr IV .Q10H2M PRN Rx #:[id number] PITOCIN 30 units In 500 ml @ 0. 483.916 / 497.833 24 UNITS/HR 4 mls/hr IV .Q24H PRN Rx#:[id number] Output: Estimated Blood Loss 130 / 315 Urine Amount (Catheter) 300 / 3300 2350 / 3300 [place]/Indwelling 300 / 3300 2350 / 3300 Lab Results 09/08/19 09/08/19 09/08/19 Range/Units 11:32 11:32 11:32 WBC 10.79 (4.8-10.8) K/uL RBC 3.81 L (4.2-5.4) M/uL Hgb 11.7 L (12.0-16.0) g/dL Hct 33.4 L (37-47) % MCV 87.7 (80-100) fL MCH 30.7 (25-34) pg MCHC 35.0 (32-36) g/dL RDW Std Deviation 47.6 H (36.4-46.3) fL RDW Coeff of Camilla 14.9 H (11.5-14.5) % Plt Count 60 L (130-400) K/uL MPV (7.4-10.4) fL Immature Gran % (Auto) 3.7 % Neut % (Auto) 73.3 % Lymph % (Auto) 13.7 % [place] % (Auto) 7.1 % Eos % (Auto) 1.9 % Baso % (Auto) 0.3 % Immature Gran # (Auto) 0.40 H (0.00-0.02) K/uL Neut # (Auto) 7.90 H (1.4-6.5) K/uL Lymph # (Auto) 1.48 (1.2-3.4) K/uL [place] # (Auto) 0.77 H (0.11-0.59) K/uL Eos # (Auto) 0.21 (0-0.5) K/uL Baso # (Auto) 0.03 (0-0.2) K/uL Absolute Nucleated RBC 0.03 H (0-0) K/uL Nucleated RBC % (auto) 0.2 % Platelet Estimate Decreased L (Normal) Tear Drop Cells 1+ Sodium 138 (136-145) mmol/L Potassium 4.2 (3.5-5.1) mmol/L Chloride 107 (98-107) mmol/L Carbon Dioxide 23 (21-32) mmol/L Anion Gap 8.0 (3-11) BUN 18 (7-18) mg/dl Creatinine 1.54 H (0.6-1.2) mg/dl Est Cr Clr Drug Dosing 59.1 ml/min Est GFR ( Amer) 51.6 Est GFR (Non-Af Amer) 44.5 BUN/Creatinine Ratio 11.4 (10-20) Glucose 95 (70-99) mg/dl Uric Acid 7.9 H (2.6-7.2) mg/dl Calcium 8.6 (8.5-10.1) mg/dl Magnesium (Sulf Ther) (4.0-8.0) mg/dL Total Bilirubin (0.2-1) mg/dl Direct Bilirubin (0-0.2) mg/dl AST 22 (15-37) U/L ALT 32 (12-78) U/L Alkaline Phosphatase (45-117) U/L Lactate Dehydrogenase 200 (84-246) U/L Total Protein (6.4-8.2) gm/dl Albumin (3.4-5.0) gm/dl Globulin (2.5-4.0) gm/dl Albumin/Globulin Ratio (0.9-2) Urine Color Urine Appearance (Clear) Urine pH (4.5-7.5) Ur Specific [place] (1.000-1.030) Urine Protein (Negative) Urine Glucose (UA) (Negative) Urine Ketones (Negative) Urine Blood (Negative) Urine Nitrite (Negative) Urine Bilirubin (Negative) Urine Urobilinogen (Negative) Ur Leukocyte Esterase (Negative) Urine WBC (Auto) (0-5) /hpf Urine RBC (Auto) (0-4) /hpf U Hyaline Cast (Auto) (0-5) /lpf U Epithel Cells (Auto) (0-5) /lpf Urine Bacteria (Auto) (Negative) Ur Random Creatinine mg/dl U Random Total Protein (0-11.9) mg/dl Protein/Creatinin Ratio (0-0.2) Blood Type Antibody Screen 09/08/19 09/08/19 09/08/19 Range/Units 13:40 13:40 15:20 WBC 11.99 H (4.8-10.8) K/uL RBC 3.90 L (4.2-5.4) M/uL Hgb 12.0 (12.0-16.0) g/dL Hct 33.9 L (37-47) % MCV 86.9 (80-100) fL MCH 30.8 (25-34) pg MCHC 35.4 (32-36) g/dL RDW Std Deviation 46.6 H (36.4-46.3) fL RDW Coeff of Camilla 14.8 H (11.5-14.5) % Plt Count 66 L (130-400) K/uL MPV (7.4-10.4) fL Immature Gran % (Auto) % Neut % (Auto) % Lymph % (Auto) % [place] % (Auto) % Eos % (Auto) % Baso % (Auto) % Immature Gran # (Auto) (0.00-0.02) K/uL Neut # (Auto) (1.4-6.5) K/uL Lymph # (Auto) (1.2-3.4) K/uL [place] # (Auto) (0.11-0.59) K/uL Eos # (Auto) (0-0.5) K/uL Baso # (Auto) (0-0.2) K/uL Absolute Nucleated RBC 0.02 H (0-0) K/uL Nucleated RBC % (auto) 0.2 % Platelet Estimate Decreased L (Normal) Tear Drop Cells Sodium (136-145) mmol/L Potassium (3.5-5.1) mmol/L Chloride (98-107) mmol/L Carbon Dioxide (21-32) mmol/L Anion Gap (3-11) BUN (7-18) mg/dl Creatinine (0.6-1.2) mg/dl Est Cr Clr Drug Dosing ml/min Est GFR ( Amer) Est GFR (Non-Af Amer) BUN/Creatinine Ratio (10-20) Glucose (70-99) mg/dl Uric Acid (2.6-7.2) mg/dl Calcium (8.5-10.1) mg/dl Magnesium (Sulf Ther) (4.0-8.0) mg/dL Total Bilirubin (0.2-1) mg/dl Direct Bilirubin (0-0.2) mg/dl AST (15-37) U/L ALT (12-78) U/L Alkaline Phosphatase (45-117) U/L Lactate Dehydrogenase (84-246) U/L Total Protein (6.4-8.2) gm/dl Albumin (3.4-5.0) gm/dl Globulin (2.5-4.0) gm/dl Albumin/Globulin Ratio (0.9-2) Urine Color Yellow Urine Appearance Clear (Clear) Urine pH 6.5 (4.5-7.5) Ur Specific [place] 1.008 (1.000-1.030) Urine Protein Trace H (Negative) Urine Glucose (UA) Negative (Negative) Urine Ketones Negative (Negative) Urine Blood Negative (Negative) Urine Nitrite Negative (Negative) Urine Bilirubin Negative (Negative) Urine Urobilinogen Negative (Negative) Ur Leukocyte Esterase Negative (Negative) Urine WBC (Auto) 1-5 (0-5) /hpf Urine RBC (Auto) 0-4 (0-4) /hpf U Hyaline Cast (Auto) 0 (0-5) /lpf U Epithel Cells (Auto) 20-30 H (0-5) /lpf Urine Bacteria (Auto) Negative (Negative) Ur Random Creatinine 37.8 mg/dl U Random Total Protein 21.7 H (0-11.9) mg/dl Protein/Creatinin Ratio 0.6 H (0-0.2) Blood Type Antibody Screen 09/08/19 09/08/19 09/08/19 Range/Units 15:20 21:26 21:26 WBC 13.04 H (4.8-10.8) K/uL RBC 4.09 L (4.2-5.4) M/uL Hgb 12.4 (12.0-16.0) g/dL Hct 35.7 L (37-47) % MCV 87.3 (80-100) fL MCH 30.3 (25-34) pg MCHC 34.7 (32-36) g/dL RDW Std Deviation 46.5 H (36.4-46.3) fL RDW Coeff of Camilla 14.7 H (11.5-14.5) % Plt Count 69 L (130-400) K/uL MPV (7.4-10.4) fL Immature Gran % (Auto) % Neut % (Auto) % Lymph % (Auto) % [place] % (Auto) % Eos % (Auto) % Baso % (Auto) % Immature Gran # (Auto) (0.00-0.02) K/uL Neut # (Auto) (1.4-6.5) K/uL Lymph # (Auto) (1.2-3.4) K/uL [place] # (Auto) (0.11-0.59) K/uL Eos # (Auto) (0-0.5) K/uL Baso # (Auto) (0-0.2) K/uL Absolute Nucleated RBC (0-0) K/uL Nucleated RBC % (auto) % Platelet Estimate Decreased L (Normal) Tear Drop Cells Sodium (136-145) mmol/L Potassium (3.5-5.1) mmol/L Chloride (98-107) mmol/L Carbon Dioxide (21-32) mmol/L Anion Gap (3-11) BUN (7-18) mg/dl Creatinine (0.6-1.2) mg/dl Est Cr Clr Drug Dosing ml/min Est GFR ( Amer) Est GFR (Non-Af Amer) BUN/Creatinine Ratio (10-20) Glucose (70-99) mg/dl Uric Acid (2.6-7.2) mg/dl Calcium (8.5-10.1) mg/dl Magnesium (Sulf Ther) 6.5 (4.0-8.0) mg/dL Total Bilirubin (0.2-1) mg/dl Direct Bilirubin (0-0.2) mg/dl AST (15-37) U/L ALT (12-78) U/L Alkaline Phosphatase (45-117) U/L Lactate Dehydrogenase (84-246) U/L Total Protein (6.4-8.2) gm/dl Albumin (3.4-5.0) gm/dl Globulin (2.5-4.0) gm/dl Albumin/Globulin Ratio (0.9-2) Urine Color Urine Appearance (Clear) Urine pH (4.5-7.5) Ur Specific [place] (1.000-1.030) Urine Protein (Negative) Urine Glucose (UA) (Negative) Urine Ketones (Negative) Urine Blood (Negative) Urine Nitrite (Negative) Urine Bilirubin (Negative) Urine Urobilinogen (Negative) Ur Leukocyte Esterase (Negative) Urine WBC (Auto) (0-5) /hpf Urine RBC (Auto) (0-4) /hpf U Hyaline Cast (Auto) (0-5) /lpf U Epithel Cells (Auto) (0-5) /lpf Urine Bacteria (Auto) (Negative) Ur Random Creatinine mg/dl U Random Total Protein (0-11.9) mg/dl Protein/Creatinin Ratio (0-0.2) Blood Type O Positive Antibody Screen NEGATIVE 09/09/19 09/09/19 09/09/19 Range/Units 03:56 05:56 05:56 WBC 13.75 H (4.8-10.8) K/uL RBC 4.11 L (4.2-5.4) M/uL Hgb 12.5 (12.0-16.0) g/dL Hct 35.9 L (37-47) % MCV 87.3 (80-100) fL MCH 30.4 (25-34) pg MCHC 34.8 (32-36) g/dL RDW Std Deviation 47.2 H (36.4-46.3) fL RDW Coeff of Camilla 14.9 H (11.5-14.5) % Plt Count 68 L (130-400) K/uL MPV (7.4-10.4) fL Immature Gran % (Auto) 2.5 % Neut % (Auto) 81.7 % Lymph % (Auto) 9.6 % [place] % (Auto) 4.8 % Eos % (Auto) 1.2 % Baso % (Auto) 0.2 % Immature Gran # (Auto) 0.34 H (0.00-0.02) K/uL Neut # (Auto) 11.23 H (1.4-6.5) K/uL Lymph # (Auto) 1.32 (1.2-3.4) K/uL [place] # (Auto) 0.66 H (0.11-0.59) K/uL Eos # (Auto) 0.17 (0-0.5) K/uL Baso # (Auto) 0.03 (0-0.2) K/uL Absolute Nucleated RBC (0-0) K/uL Nucleated RBC % (auto) % Platelet Estimate Decreased L (Normal) Tear Drop Cells Sodium 133 L (136-145) mmol/L Potassium 4.4 (3.5-5.1) mmol/L Chloride 100 (98-107) mmol/L Carbon Dioxide 24 (21-32) mmol/L Anion Gap 9.0 (3-11) BUN 15 (7-18) mg/dl Creatinine 1.54 H (0.6-1.2) mg/dl Est Cr Clr Drug Dosing 59.1 ml/min Est GFR ( Amer) 51.6 Est GFR (Non-Af Amer) 44.5 BUN/Creatinine Ratio 9.7 L (10-20) Glucose 89 (70-99) mg/dl Uric Acid 8.3 H (2.6-7.2) mg/dl Calcium 8.1 L (8.5-10.1) mg/dl Magnesium (Sulf Ther) 8.0 7.8 (4.0-8.0) mg/dL Total Bilirubin 0.4 (0.2-1) mg/dl Direct Bilirubin < 0.1 (0-0.2) mg/dl AST 23 (15-37) U/L ALT 33 (12-78) U/L Alkaline Phosphatase 134 H (45-117) U/L Lactate Dehydrogenase (84-246) U/L Total Protein 7.0 (6.4-8.2) gm/dl Albumin 2.9 L (3.4-5.0) gm/dl Globulin 4.1 H (2.5-4.0) gm/dl Albumin/Globulin Ratio 0.7 L (0.9-2) Urine Color Urine Appearance (Clear) Urine pH (4.5-7.5) Ur Specific [place] (1.000-1.030) Urine Protein (Negative) Urine Glucose (UA) (Negative) Urine Ketones (Negative) Urine Blood (Negative) Urine Nitrite (Negative) Urine Bilirubin (Negative) Urine Urobilinogen (Negative) Ur Leukocyte Esterase (Negative) Urine WBC (Auto) (0-5) /hpf Urine RBC (Auto) (0-4) /hpf U Hyaline Cast (Auto) (0-5) /lpf U Epithel Cells (Auto) (0-5) /lpf Urine Bacteria (Auto) (Negative) Ur Random Creatinine mg/dl U Random Total Protein (0-11.9) mg/dl Protein/Creatinin Ratio (0-0.2) Blood Type Antibody Screen 09/09/19 09/10/19 09/10/19 Range/Units 11:25 01:57 06:09 WBC 15.86 H (4.8-10.8) K/uL RBC 3.24 L (4.2-5.4) M/uL Hgb 9.7 L (12.0-16.0) g/dL Hct 28.6 L (37-47) % MCV 88.3 (80-100) fL MCH 29.9 (25-34) pg MCHC 33.9 (32-36) g/dL RDW Std Deviation 47.4 H (36.4-46.3) fL RDW Coeff of Camilla 14.8 H (11.5-14.5) % Plt Count 75 L (130-400) K/uL MPV 12.5 H (7.4-10.4) fL Immature Gran % (Auto) % Neut % (Auto) % Lymph % (Auto) % [place] % (Auto) % Eos % (Auto) % Baso % (Auto) % Immature Gran # (Auto) (0.00-0.02) K/uL Neut # (Auto) (1.4-6.5) K/uL Lymph # (Auto) (1.2-3.4) K/uL [place] # (Auto) (0.11-0.59) K/uL Eos # (Auto) (0-0.5) K/uL Baso # (Auto) (0-0.2) K/uL Absolute Nucleated RBC (0-0) K/uL Nucleated RBC % (auto) % Platelet Estimate (Normal) Tear Drop Cells Sodium (136-145) mmol/L Potassium (3.5-5.1) mmol/L Chloride (98-107) mmol/L Carbon Dioxide (21-32) mmol/L Anion Gap (3-11) BUN (7-18) mg/dl Creatinine (0.6-1.2) mg/dl Est Cr Clr Drug Dosing ml/min Est GFR ( Amer) Est GFR (Non-Af Amer) BUN/Creatinine Ratio (10-20) Glucose (70-99) mg/dl Uric Acid (2.6-7.2) mg/dl Calcium (8.5-10.1) mg/dl Magnesium (Sulf Ther) 7.5 6.6 (4.0-8.0) mg/dL Total Bilirubin (0.2-1) mg/dl Direct Bilirubin (0-0.2) mg/dl AST (15-37) U/L ALT (12-78) U/L Alkaline Phosphatase (45-117) U/L Lactate Dehydrogenase (84-246) U/L Total Protein (6.4-8.2) gm/dl Albumin (3.4-5.0) gm/dl Globulin (2.5-4.0) gm/dl Albumin/Globulin Ratio (0.9-2) Urine Color Urine Appearance (Clear) Urine pH (4.5-7.5) Ur Specific [place] (1.000-1.030) Urine Protein (Negative) Urine Glucose (UA) (Negative) Urine Ketones (Negative) Urine Blood (Negative) Urine Nitrite (Negative) Urine Bilirubin (Negative) Urine Urobilinogen (Negative) Ur Leukocyte Esterase (Negative) Urine WBC (Auto) (0-5) /hpf Urine RBC (Auto) (0-4) /hpf U Hyaline Cast (Auto) (0-5) /lpf U Epithel Cells (Auto) (0-5) /lpf Urine Bacteria (Auto) (Negative) Ur Random Creatinine mg/dl U Random Total Protein (0-11.9) mg/dl Protein/Creatinin Ratio (0-0.2) Blood Type Antibody Screen PE: General: Alert, orientedx3, NAD CVS S1S2 RRR Lungs; CTAB Abd: soft, NT, fundus firm, below Umbilicus Perineum intact, Lochia rubra minimal Ext; NT, trace edema, DTR 2+/2+, no clonus AP: 33 yo female with h/o CHT, APL, t. penia, renal insufficiency, s/p , ppd# 1 On IV Magnesium sulfate VSS Afebrile doing well BP's stable Platelet improved Creatinine stable per yesterdays labs: will run another one this morning On Lovenox, plan to continue 6 week pp Stop Aspirin per hematology, last dose was on 09/08 D/C magnesium after 1030 am, 24 postdelivery Continue to monitor closely All questions were answered Results & Data Vital Signs (Past 12 Hours) Vital Signs Temp Pulse Resp BP Pulse Ox 09/10/19 07:45 88 96 09/10/19 07:40 90 97 09/10/19 07:35 90 97 09/10/19 07:30 87 97 09/10/19 07:25 88 98 09/10/19 07:20 90 96 09/10/19 07:15 91 H 98 09/10/19 07:10 86 98 09/10/19 07:05 88 98 09/10/19 07:00 92 H 98 09/10/19 06:55 88 96 09/10/19 06:50 89 96 09/10/19 06:45 91 H 98 09/10/19 06:40 87 98 09/10/19 06:35 89 97 09/10/19 06:30 92 H 98 09/10/19 06:25 89 98 09/10/19 06:20 92 H 98 09/10/19 06:15 91 H 98 09/10/19 06:10 95 H 18 99 09/10/19 06:05 92 H 98 09/10/19 06:00 90 99 09/10/19 05:55 97 H 98 09/10/19 05:50 108 H 99 09/10/19 05:49 88 142/86 H 09/10/19 05:45 88 97 09/10/19 05:40 89 98 09/10/19 05:39 92 H 92 09/10/19 05:35 83 97 09/10/19 05:32 85 93 09/10/19 05:30 83 95 09/10/19 05:26 82 93 09/10/19 05:25 88 95 09/10/19 05:20 85 96 09/10/19 05:15 81 97 09/10/19 05:10 95 H 18 95 09/10/19 05:05 95 H 98 09/10/19 05:00 83 96 09/10/19 04:55 85 97 09/10/19 04:50 83 96 09/10/19 04:45 84 96 09/10/19 04:40 88 97 09/10/19 04:35 80 95 09/10/19 04:30 83 98 09/10/19 04:25 85 97 09/10/19 04:20 84 99 09/10/19 04:15 82 98 09/10/19 04:10 85 16 99 09/10/19 04:05 87 99 09/10/19 04:00 88 99 09/10/19 03:55 88 100 09/10/19 03:50 89 100 09/10/19 03:45 87 100 09/10/19 03:40 85 100 09/10/19 03:35 87 100 09/10/19 03:30 88 99 09/10/19 03:25 93 H 98 09/10/19 03:20 101 H 99 09/10/19 03:15 92 H 18 99 09/10/19 03:10 88 98 09/10/19 03:05 94 H 99 09/10/19 03:00 91 H 99 09/10/19 02:55 86 98 09/10/19 02:53 85 155/96 H 09/10/19 02:51 93 H 164/98 H 09/10/19 02:50 95 H 98 09/10/19 02:45 90 97 09/10/19 02:40 91 H 98 09/10/19 02:35 81 97 09/10/19 02:30 81 97 09/10/19 02:25 82 97 09/10/19 02:20 81 97 09/10/19 02:15 80 97 09/10/19 02:10 79 97 09/10/19 02:09 18 09/10/19 02:05 79 97 09/10/19 02:00 81 97 09/10/19 01:55 81 96 09/10/19 01:50 82 96 09/10/19 01:45 82 97 09/10/19 01:40 84 96 09/10/19 01:35 83 96 09/10/19 01:30 97 H 96 09/10/19 01:25 81 96 09/10/19 01:20 102 H 98 09/10/19 01:15 84 18 96 09/10/19 01:10 84 96 09/10/19 01:05 84 96 09/10/19 01:00 82 97 09/10/19 00:57 83 93 09/10/19 00:55 83 96 09/10/19 00:50 85 96 09/10/19 00:45 86 96 09/10/19 00:43 83 93 09/10/19 00:40 81 96 09/10/19 00:35 79 95 09/10/19 00:30 86 97 09/10/19 00:25 82 97 09/10/19 00:20 88 97 09/10/19 00:15 83 18 96 11/07/19 00:10 83 96 09/10/19 00:05 83 96 09/10/19 00:00 83 95 09/09/19 23:55 85 96 09/09/19 23:54 80 93 09/09/19 23:50 84 96 09/09/19 23:45 83 95 09/09/19 23:41 78 140/84 09/09/19 23:40 81 96 09/09/19 23:35 82 96 09/09/19 23:30 36.7 C 82 16 96 09/09/19 23:25 84 96 09/09/19 23:20 83 96 09/09/19 23:15 87 96 09/09/19 23:10 83 96 09/09/19 23:05 83 96 09/09/19 23:00 83 97 09/09/19 22:55 82 95 09/09/19 22:50 84 96 09/09/19 22:45 97 H 97 09/09/19 22:43 83 143/86 H 09/09/19 22:40 84 94 09/09/19 22:35 84 95 09/09/19 22:33 85 92 09/09/19 22:30 84 94 09/09/19 22:25 83 97 09/09/19 22:20 85 96 09/09/19 22:15 85 98 09/09/19 22:10 88 97 09/09/19 22:05 93 H 97 09/09/19 22:00 96 H 98 09/09/19 21:55 101 H 97 09/09/19 21:50 99 H 98 09/09/19 21:47 102 H 175/110 H 09/09/19 21:45 87 97 09/09/19 21:40 93 H 97 09/09/19 21:35 93 H 99 09/09/19 21:30 100 H 18 98 09/09/19 21:25 88 98 09/09/19 21:20 88 98 09/09/19 21:15 94 H 98 09/09/19 21:10 99 H 100 09/09/19 21:05 93 H 99 09/09/19 21:00 91 H 99 09/09/19 20:55 95 H 99 09/09/19 20:50 93 H 100 09/09/19 20:45 101 H 98 09/09/19 20:40 95 H 99 09/09/19 20:35 93 H 98 09/09/19 20:30 94 H 98 09/09/19 20:25 96 H 98 09/09/19 20:20 89 97 09/09/19 20:15 94 H 18 97 09/09/19 20:10 100 H 97 09/09/19 20:05 103 H 97 09/09/19 20:00 101 H 97 09/09/19 19:55 104 H 97 09/09/19 19:50 102 H 97
[2019-09-10 08:05] LABS: Albumin Globulin Ratio 0.7 (0.9-2); Albumin Level 2.4 gm/dl (3.4-5.0); BUN Creatinine Ratio 10.6 (10-20); Bilirubin,Total 0.4 mg/dl (0.2-1); Calcium 6.8 mg/dl (8.5-10.1); Creatinine Clr Calc Pharmacy 49.2 ml/min; Est GFR (African American) 41.3; Est GFR (Non-African American) 35.7; Globulin 3.4 gm/dl (2.5-4.0); Magnesium 6.6 mg/dl (1.8-2.4); Potassium 4.3 mmol/L (3.5-5.1); Total Protein 5.8 gm/dl (6.4-8.2)
[2019-09-10] MEDS: DOCUSATE SODIUM 100 MG CAP PO SCH ×2 (08:17→21:06)
[2019-09-10] MEDS: LABETALOL HCL 200 MG TAB PO SCH ×3 (08:17→21:06)
[2019-09-10] MEDS: PRENATAL VITAMIN 1 TAB PO SCH (08:18)
--- NOTE | 2019-09-10 18:24 | Nephrology Consultation ---
Date of Consultation September 10, 2019 Assessment & Plan (1) Acute renal insufficiency: creatinine went from 1.5 x 2 days up to 1.9 today >> abrupt worsening of already abnormal creatinine post plts lower than they had been (60s mostly, though last ones 75) hgb from 12's to 9's ongoing uncontrolled HTN, though improved slightly this PM DDX includes HELLP, TMA/MAHA in peripartum period; renal complication of APL syndrome; return to non baseline creatinine; prerenal state; complication of ibuprofen/ATN -stopped nsaids; would avoid these in this patient unless ordered by hematology -discussed w/ Dr. 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[place] [facility]; will cont to discuss this evening -stat imaging >> negative as above -stat CMP, CBC, mag, LDH, UACM, prot/creat > stat smear if hgb lower -if labs worsening, low threshold for transfer to [facility] d/t concern for potential need for renal bx, plasmapheresis, MFM consultation, advanced inpatient neurology or hematology care -if stays here, would transfer to medical floor where she -will need q4h neuro checks and BP checks -labs in AM (already ordered) -needs inpatient observation at least next 36-48 hrs Present on Admission?: Yes (2) Pre-eclampsia added to pre-existing hypertension: preeclampsia resolves w/ delivery but some risks as detailed above remain for htn -cont labetalol current dose -if SBP >160 and HR > 60, give another 100 mg po labetalol q4h prn -consider adding nifedipine if needed Present on Admission?: Yes (3) Antiphospholipid antibody syndrome complicating : follows w/ dr carlos; no hx of thrombotic events ->>would verify w/ heme that current lovenox dose is appropriate >>needs eval for SLE/lupus after acute issues settle Present on Admission?: Yes (4) CKD (chronic kidney disease) stage 3, GFR 30-59 ml/min: unknown baseline but presume ckd 3 >> had creatinine 1.0-1.2 in 09/2017 while not in [facility]; had creat 1.7 (only value) in [facility] 01/2018 w/ ; next creatinine are in 2019 as above -needs to follow w/ nephro indefinitely after current clinical issues stabilize -significant risk longer term for progressive CKD/ESRD Present on Admission?: Yes (5) Acute anemia: see above re hgb drop- recheck pending stop nsaids check LDH Present on Admission?: Yes History of Present Illness Reason for Consultation: elevated creatinine Requesting Physician: Dr Alvarado Attending Physician: Konstantin Spivey MD History of Present Illness 33 y/o F whom I'm asked to see for worsening creatinine after vaginal delivery was induced yesterday d/t preeclampsia. PMH includes HTN since 09/2017, presumptive CKD3, primary antiphospholipid syndrome (dx'd 02/2018) w/o hx of thrombotic complications but w/ significant -related morbidity, thrombocytopenia (dx'd 2013), for now w/ reformed tobacco abuse. She follows w/ Dr Carlos in hematology. She has had 7 pregnancies, w/ 2 births, 4 miscarriages <10 weeks and one miscarriage on 01/31/2018 at about 12 weeks. She has anti cardiolipin AB, lupus AC, beta 2 glycoprotein positivity. her baseline creatinine is difficult to pinpoint since our data in [facility] is all during : on 01/02/18, creatinine was 1.7; then next labs are nearly monthly from 01/21/19 through 09/08/19, w/ creatinine 1.4-1.6, most recently 1.5 on 09/08/19. in [facility] she has a creat of 1.2 and 1.3, drawn during ER visit when she was not in sep 2017. she has consistently had 250-300 mg proteinuria on spot ratios since May 2019 and 452 mg on 24 hr urine in May. She was to est w/ me yesterday in CKD clinic incidentally but went to L& D instead. her cbc on 09/08 was 11, 11.7, 60; her plts have been running 70-90s since March 2019. her creatinine was 1.5 on 09/08, 09/09; this am up to 1.9. other chemistries ok; plts are running in 60s since arrival > did go up to 75 this am. her transaminases have been wnl. has had 5 doses of ibuprofen since yesterday. standing bp 193/57 HR 83 and after 5 min sitting 136/88 HR 85 this evening; maintained currently on labetalol 200 mg tid, just upped from bid since ad mission. no flank pain, loyola, rash, sob, gross hematuria, no RUQ pain or MS changes. she did have some post vaginal bleeding and passed a clot this am. Allergies Allergy/AdvReac Type Severity Reaction Status Date / Time guaifenesin Allergy Unknown HIVES FROM Verified 08/22/19 17:18 MUCINEX Home Medications Home Medications Medication Instructions Recorded Confirmed Type aspirin 81 mg tablet,delayed 81 mg PO DAILY 05/18/19 09/08/19 History release labetalol 100 mg tablet 200 mg PO BID 05/18/19 09/08/19 History vit-iron fum-folic ac 1 tab PO DAILY 05/18/19 09/08/19 History Vitamin B-12 100 mcg PO DAILY 08/22/19 09/08/19 History Iron (ferrous sulfate) 325 mg PO DAILY 09/08/19 09/08/19 History heparin (porcine) 10,000 unit SUBCUT BID 09/08/19 09/08/19 History vit D3-folic acza-R3-P5-B12 1 tab PO DAILY 09/08/19 09/08/19 History Patient History Family History Grandfather (Paternal) Colorectal cancer Father Diabetes Social History Preferred Language: Mosotho Communication Ability: Effective Beliefs That Will Affect Care: None marital status: Current Living Situation: Spouse Current Living Situation Comment: lives with and 10 yo son Other Information That Helps Us Care for You: No Feels Safe at Home: Yes Safety Concerns: Feels Safe At This Time Smoking Status: Former smoker Tobacco Type: cigarettes ; Cigarettes Per Day: 1 ; Do You Dip or Chew Tobacco: No ; Second Hand Exposure: Yes ; Hx Alcohol Use: Yes (not during ) Alcohol type: beer, wine and hard liquor Hx Substance Use: No Review of Systems Review of Systems: All systems reviewed & are unremarkable except as noted in HPI & below Genitourinary: + dysuria and + urinary urgency; no difficulty urinating Integumentary: + rash (between her breasts) Physical Exam Constitutional: well developed, well nourished, + obese and cooperative; no acute distress, no altered mental status and no physical limitations Eyes: EOM intact bilaterally ENMT: Ears: no external ear abnormality Nose: no external nose abnormality Mouth: oral mucous membranes not dry Neck: no nuchal rigidity Respiratory: normal respiratory effort Auscultation: lungs clear to auscultation bilaterally Cardiovascular: RRR, no murmur, no edema Gastrointestinal (Abdomen): Inspection/Auscultation: normal bowel sounds Percussion/Palpation: abdomen soft; abdomen nontender Musculoskeletal: no cyanosis or clubbing, extremities motor strength 5/5 Extremities: strength 5/5 throughout Skin: + rash (poorly demarcated macules between breasts red no pruritic) and + pallor Neurologic: allen, fluent speech, no tremor Psychiatric: A+Ox3, euthymic affect Results & Data Vital Signs (Past 12 Hours) Vital Signs Temp Pulse Pulse Resp BP BP Pulse Ox 09/10/19 15:26 94 H 145/90 H 09/10/19 15:10 36.7 C 87 20 145/93 H 09/10/19 11:30 36.7 C 95 H 18 147/94 H 97 09/10/19 10:30 20 09/10/19 10:29 20 09/10/19 10:22 100 H 96 09/10/19 10:17 85 92 09/10/19 10:12 85 93 09/10/19 10:11 87 92 09/10/19 10:07 87 92 09/10/19 10:02 85 95 09/10/19 09:57 87 95 09/10/19 09:52 87 94 09/10/19 09:47 90 93 09/10/19 09:42 94 H 94 09/10/19 09:38 95 H 121/73 09/10/19 09:37 99 H 95 09/10/19 09:32 100 H 94 09/10/19 09:27 98 H 95 09/10/19 09:22 99 H 95 09/10/19 09:18 102 H 94 09/10/19 09:17 102 H 96 09/10/19 09:12 101 H 95 09/10/19 09:07 104 H 96 09/10/19 09:02 104 H 96 09/10/19 08:57 97 H 96 09/10/19 08:52 98 H 96 09/10/19 08:47 103 H 96 09/10/19 08:42 93 H 96 09/10/19 08:37 94 H 97 09/10/19 08:32 102 H 99 09/10/19 08:27 106 H 97 09/10/19 08:22 93 H 98 09/10/19 08:17 95 H 98 09/10/19 08:12 88 98 09/10/19 08:07 92 H 97 09/10/19 08:02 107 H 97 09/10/19 08:00 97 H 20 97 09/10/19 07:58 88 188/113 H 09/10/19 07:55 94 H 96 09/10/19 07:50 99 H 96 09/10/19 07:49 93 H 94 09/10/19 07:45 88 96 09/10/19 07:40 90 97 09/10/19 07:35 90 97 09/10/19 07:30 87 97 09/10/19 07:25 88 98 09/10/19 07:20 90 96 09/10/19 07:15 91 H 98 09/10/19 07:10 86 98 09/10/19 07:05 88 98 09/10/19 07:00 36.8 C 92 H 20 98 09/10/19 06:55 88 96 09/10/19 06:50 89 96 09/10/19 06:45 91 H 98 09/10/19 06:40 87 98 09/10/19 06:35 89 97 09/10/19 06:30 92 H 98 09/10/19 06:25 89 98 09/10/19 06:20 92 H 98 Laboratory Results 09/10/19 09/10/19 09/10/19 Range/Units 20:37 20:37 20:34 WBC Pending (4.8-10.8) K/uL RBC Pending (4.2-5.4) M/uL Hgb Pending (12.0-16.0) g/dL Hct Pending (37-47) % MCV Pending (80-100) fL MCH Pending (25-34) pg MCHC Pending (32-36) g/dL RDW Std Deviation (36.4-46.3) fL RDW Coeff of Camilla (11.5-14.5) % Plt Count Pending (130-400) K/uL MPV (7.4-10.4) fL Sodium (136-145) mmol/L Potassium (3.5-5.1) mmol/L Chloride (98-107) mmol/L Carbon Dioxide (21-32) mmol/L Anion Gap (3-11) BUN (7-18) mg/dl Creatinine (0.6-1.2) mg/dl Est Cr Clr Drug Dosing ml/min Est GFR ( Amer) Est GFR (Non-Af Amer) BUN/Creatinine Ratio (10-20) Glucose (70-99) mg/dl Calcium (8.5-10.1) mg/dl Magnesium Pending (1.8-2.4) mg/dl Magnesium (Sulf Ther) (4.0-8.0) mg/dL Total Bilirubin (0.2-1) mg/dl AST (15-37) U/L ALT (12-78) U/L Alkaline Phosphatase (45-117) U/L Lactate Dehydrogenase Pending Total Protein (6.4-8.2) gm/dl Albumin (3.4-5.0) gm/dl Globulin (2.5-4.0) gm/dl Albumin/Globulin Ratio (0.9-2) 09/10/19 09/10/19 09/10/19 Range/Units 20:30 06:12 06:09 WBC 15.86 H (4.8-10.8) K/uL RBC 3.24 L (4.2-5.4) M/uL Hgb 9.7 L (12.0-16.0) g/dL Hct 28.6 L (37-47) % MCV 88.3 (80-100) fL MCH 29.9 (25-34) pg MCHC 33.9 (32-36) g/dL RDW Std Deviation 47.4 H (36.4-46.3) fL RDW Coeff of Camilla 14.8 H (11.5-14.5) % Plt Count 75 L (130-400) K/uL MPV 12.5 H (7.4-10.4) fL Sodium Pending 132 L (136-145) mmol/L Potassium Pending 4.3 (3.5-5.1) mmol/L Chloride Pending 99 (98-107) mmol/L Carbon Dioxide Pending 24 (21-32) mmol/L Anion Gap Pending 9.0 (3-11) BUN Pending 20 H (7-18) mg/dl Creatinine Pending 1.85 H D (0.6-1.2) mg/dl Est Cr Clr Drug Dosing Pending 49.2 ml/min Est GFR ( Amer) Pending 41.3 Est GFR (Non-Af Amer) Pending 35.7 BUN/Creatinine Ratio Pending 10.6 (10-20) Glucose Pending 73 (70-99) mg/dl Calcium Pending 6.8 L D (8.5-10.1) mg/dl Magnesium 6.6 H* (1.8-2.4) mg/dl Magnesium (Sulf Ther) (4.0-8.0) mg/dL Total Bilirubin Pending 0.4 (0.2-1) mg/dl AST Pending 24 (15-37) U/L ALT Pending 29 (12-78) U/L Alkaline Phosphatase Pending 101 (45-117) U/L Lactate Dehydrogenase Total Protein Pending 5.8 L (6.4-8.2) gm/dl Albumin Pending 2.4 L (3.4-5.0) gm/dl Globulin Pending 3.4 (2.5-4.0) gm/dl Albumin/Globulin Ratio Pending 0.7 L (0.9-2) 09/10/19 Range/Units 01:57 WBC (4.8-10.8) K/uL RBC (4.2-5.4) M/uL Hgb (12.0-16.0) g/dL Hct (37-47) % MCV (80-100) fL MCH (25-34) pg MCHC (32-36) g/dL RDW Std Deviation (36.4-46.3) fL RDW Coeff of Camilla (11.5-14.5) % Plt Count (130-400) K/uL MPV (7.4-10.4) fL Sodium (136-145) mmol/L Potassium (3.5-5.1) mmol/L Chloride (98-107) mmol/L Carbon Dioxide (21-32) mmol/L Anion Gap (3-11) BUN (7-18) mg/dl Creatinine (0.6-1.2) mg/dl Est Cr Clr Drug Dosing ml/min Est GFR ( Amer) Est GFR (Non-Af Amer) BUN/Creatinine Ratio (10-20) Glucose (70-99) mg/dl Calcium (8.5-10.1) mg/dl Magnesium (1.8-2.4) mg/dl Magnesium (Sulf Ther) 6.6 (4.0-8.0) mg/dL Total Bilirubin (0.2-1) mg/dl AST (15-37) U/L ALT (12-78) U/L Alkaline Phosphatase (45-117) U/L Lactate Dehydrogenase Total Protein (6.4-8.2) gm/dl Albumin (3.4-5.0) gm/dl Globulin (2.5-4.0) gm/dl Albumin/Globulin Ratio (0.9-2) Diagnostic Findings renal artery duplex 1. No evidence of renal artery stenosis 2. Both renal veins appear patent. renal u/s FINDINGS: The right kidney measures 11.3 cm. The left kidney measures 10.6 cm. There is no evidence of hydronephrosis. There are no renal masses. No bladder abnormalities are visualized. Bilateral ureteral jets were visualized. IMPRESSION : Normal renal ultrasound.
[2019-09-10] MEDS ORDERED: BISACODYL 5 MG TABEC PO SCH (20:00)
--- NOTE | 2019-09-10 20:48 | Ultrasound Report ---
EXAMINATION: RENAL ULTRASOUND CLINICAL HISTORY: acute renal insufficiency superimposed on chronic renal disease COMPARISON STUDY: 09/30/2017 FINDINGS: The right kidney measures 11.3 cm. The left kidney measures 10.6 cm. There is no evidence of hydronephrosis. There are no renal masses. No bladder abnormalities are visualized. Bilateral ureteral jets were visualized. IMPRESSION : Normal renal ultrasound. Electronically signed by: Camilo Wright M.D. 09/10/2019 8:47 PM
--- NOTE | 2019-09-10 20:50 | Ultrasound Report ---
US duplex renal artery CLINICAL HISTORY: post w/ antiphospholipid syndrome and worsening renal function COMPARISON STUDY: 10/01/2017 FINDINGS: The peak systolic velocity within the aorta was 40 27 cm/s. Peak systolic velocity within the right renal artery is 112 cm/s. The peak systolic velocity within the left renal artery was 93 cm/s. Both renal veins appear patent. IMPRESSION: 1. No evidence of renal artery stenosis 2. Both renal veins appear patent. Electronically signed by: Camilo Wright M.D. 09/10/2019 8:49 PM
[2019-09-10 21:15] LABS: Hematocrit (blood only) 25.1 % (37-47); Hemoglobin 8.5 g/dL (12.0-16.0); Mean Corpuscular Hemoglobin 30.1 pg (25-34); Mean Corpuscular Hgb Conc 33.9 g/dL (32-36); Mean Platelet Volume 12.6 fL (7.4-10.4); Platelet Count 73 K/uL (130-400); RDW Coefficient of Variation 15.1 % (11.5-14.5); RDW Standard Deviation 48.7 fL (36.4-46.3); Red Blood Count 2.82 M/uL (4.2-5.4); White Blood Count 10.57 K/uL (4.8-10.8)
[2019-09-10 21:19] LABS: Albumin Level 2.7 gm/dl (3.4-5.0); BUN Creatinine Ratio 13.3 (10-20); Calcium 7.2 mg/dl (8.5-10.1); Creatinine Clr Calc Pharmacy 40.4 ml/min; Est GFR (African American) 32.6; Est GFR (Non-African American) 28.1
[2019-09-10 21:19] LABS: Basophils # (auto) 0.02 K/uL (0-0.2); Basophils % (auto) 0.2 %; Eosinophils # (auto) 0.18 K/uL (0-0.5); Eosinophils % (auto) 1.7 %; Immature Granulocytes # (auto) 0.18 K/uL (0.00-0.02); Immature Granulocytes % (auto) 1.7 %; Lymphocytes # (auto) 1.59 K/uL (1.2-3.4); Monocytes # (auto) 0.75 K/uL (0.11-0.59); Monocytes % (auto) 7.1 %; Neutrophils # (auto) 7.85 K/uL (1.4-6.5); Neutrophils % (auto) 74.3 %
[2019-09-10 21:22] LABS: Albumin Globulin Ratio 0.8 (0.9-2); Bilirubin,Total 0.2 mg/dl (0.2-1); Globulin 3.5 gm/dl (2.5-4.0); Total Protein 6.2 gm/dl (6.4-8.2)
[2019-09-10 21:42] LABS: Appearance Urine Cloudy (Clear); Bilirubin Urine Negative (Negative); Blood Urine 3+ (Negative); Color Urine Red; Glucose Urine UA Negative (Negative); Ketones Urine Negative (Negative); Leukocyte Esterase Urine 1+ (Negative); Nitrite Urine Negative (Negative); Protein Urine 2+ (Negative); Urobilinogen Urine Negative (Negative)
[2019-09-10 21:46] LABS: Epithelial Cell Urine >30 /lpf (0-5); RBC Urine >30 /hpf (0-4)
[2019-09-10 21:47] LABS: Bacteria Urine 1+ (Negative)
[2019-09-10 21:49] LABS: Creatinine Urine Random 44.4 mg/dl; Protein Creatinine Ratio Urine 2.8 (0-0.2); Total Protein Urine Random 123.7 mg/dl (0-11.9)
[2019-09-10] MEDS: ENOXAPARIN INJ 40 MG/0.4 ML SYR SQ SCH (22:14)
--- NOTE | 2019-09-10 22:43 | Obstetrical Progress Note ---
Date of Service September 10, 2019 Subjective Patient is reevaluated She feels well no complaints She states she is feeling much better since she had the baby and had been off magnesium No QUIROGA/ Change in vision/ N&V/ epigastric or RUQ pain/ numbness/ tingling Bleeding is not heavy Selling is getting better We discussed the case with Dr Mai with MFM over the phone Thye suspected chronic renal insufficiency, CHTN, APL, superimposed with preeclampsia Expected to have creatinine increase They recommended to monitor/ recover here with repeat BP checks/ repeat labs Dr Mai will reevaluate her in am Patient is aware All questions were answered Results & Data Vital Signs (Past 12 Hours) Vital Signs Temp Pulse Resp BP Pulse Ox 09/10/19 21:05 92 H 152/97 H 09/10/19 19:15 36.9 C 83 18 136/88 99 09/10/19 19:10 85 193/157 H 09/10/19 15:26 94 H 145/90 H 09/10/19 15:10 36.7 C 87 20 145/93 H 09/10/19 11:30 36.7 C 95 H 18 147/94 H 97
[2019-09-11 07:06] LABS: Hematocrit (blood only) 26.2 % (37-47); Hemoglobin 8.7 g/dL (12.0-16.0); Mean Corpuscular Hemoglobin 29.8 pg (25-34); Mean Corpuscular Hgb Conc 33.2 g/dL (32-36); Mean Corpuscular Volume 89.7 fL (80-100); Mean Platelet Volume 12.1 fL (7.4-10.4); Platelet Count 83 K/uL (130-400); RDW Coefficient of Variation 15.2 % (11.5-14.5); RDW Standard Deviation 49.6 fL (36.4-46.3); Red Blood Count 2.92 M/uL (4.2-5.4)
[2019-09-11 07:28] LABS: Albumin Level 2.7 gm/dl (3.4-5.0); BUN Creatinine Ratio 15.2 (10-20); Calcium 7.9 mg/dl (8.5-10.1); Creatinine Clr Calc Pharmacy 48.9 ml/min; Est GFR (African American) 41.1; Est GFR (Non-African American) 35.4; Magnesium 3.5 mg/dl (1.8-2.4)
[2019-09-11 07:31] LABS: Albumin Globulin Ratio 0.7 (0.9-2); Bilirubin,Total 0.5 mg/dl (0.2-1); Globulin 3.9 gm/dl (2.5-4.0); Total Protein 6.6 gm/dl (6.4-8.2)
[2019-09-11] MEDS: DOCUSATE SODIUM 100 MG CAP PO SCH (07:44)
[2019-09-11] MEDS: LABETALOL HCL 200 MG TAB PO SCH ×3 (07:44→18:06)
[2019-09-11] MEDS: PRENATAL VITAMIN 1 TAB PO SCH (07:44)
[2019-09-11 07:45] LABS: Basophils # (auto) 0.03 K/uL (0-0.2); Basophils % (auto) 0.3 %; Eosinophils # (auto) 0.17 K/uL (0-0.5); Eosinophils % (auto) 1.6 %; Giant Platelets 1+; Immature Granulocytes # (auto) 0.23 K/uL (0.00-0.02); Immature Granulocytes % (auto) 2.1 %; Lymphocytes # (auto) 1.23 K/uL (1.2-3.4); Lymphocytes % (auto) 11.4 %; Monocytes # (auto) 0.69 K/uL (0.11-0.59); Monocytes % (auto) 6.4 %; Neutrophils # (auto) 8.45 K/uL (1.4-6.5); Neutrophils % (auto) 78.2 %
--- NOTE | 2019-09-11 07:46 | Nephrology Progress Note ---
Date of Service September 11, 2019 Assessment & Plan (1) Acute renal insufficiency: creatinine went from 1.5 x 2 days up to 1.9 to 2.3 09/10 evening; now 1.9 today and same this evening > abrupt worsening of already abnormal creatinine post plts trending up slightly and w/in prepregnancy baseline hgb from 12's to 8's post but now improving; minimal LDH elevation HTN improved overnight Liver enzymes have been wnl DDX for BOB includes renal complication of APL syndrome; return to non baseline creatinine; prerenal state; complication of ibuprofen, ATN -no nsaids unless ordered by hematology -MFM aware of pt -stat imaging negative for large vessel renal thrombus -repeat cmp, cbc/d, LDH, mag later today and in AM -cont q4-6h neuro checks and BP checks -needs inpatient observation at least next 24-36 hrs (2) Pre-eclampsia added to pre-existing hypertension: preeclampsia resolves w/ delivery but some risks as detailed above remain for htn -lower labetalol to 200 bid -if SBP >160 and HR > 60, give another 100 mg po labetalol q4h prn would hold of on introducing nifedipine for now; may end up leaving on tid labetalol; will follow (3) Antiphospholipid antibody syndrome complicating : follows w/ dr carlos; no hx of thrombotic events ->>would verify w/ heme that current lovenox dose is appropriate >>needs eval for SLE/lupus after acute issues settle >> as OP (4) CKD (chronic kidney disease) stage 3, GFR 30-59 ml/min: unknown baseline but presume ckd 3 >> had creatinine 1.0-1.2 in 09/2017 while not in [facility]; had creat 1.7 (only value) in [facility] 01/2018 w/ ; next creatinine are in 2019 as above -needs to follow w/ nephro indefinitely after current clinical issues stabilize -significant risk longer term for progressive CKD/ESRD (5) Acute anemia: expected after delivery w/ some vaginal bleeding; stabilized hold nsaids follow hgb, plts, LDH -cont PNV Subjective progress followed through day; d/w Dr Spivey and nursing staff; pt feels well, ambulating, no edema, no confusion, no chest pain, no sob, no flank pain, no focal/global weakness, some abd cramps; tolerating po, no voiding concerns; passing small amounts of blood Review of Systems Review of Systems: All systems reviewed & are unremarkable except as noted in HPI & below Physical Exam Constitutional: well developed, well nourished, + obese and cooperative; no acute distress, no altered mental status and no physical limitations Eyes: EOM intact bilaterally ENMT: Ears: no external ear abnormality Nose: no external nose abnormality Mouth: oral mucous membranes not dry Neck: no nuchal rigidity Respiratory: normal respiratory effort Auscultation: lungs clear to auscultation bilaterally Cardiovascular: RRR, no murmur, no edema Gastrointestinal (Abdomen): Inspection/Auscultation: normal bowel sounds Percussion/Palpation: abdomen soft; abdomen nontender Musculoskeletal: no cyanosis or clubbing, extremities motor strength 5/5 Extremities: strength 5/5 throughout Skin: + rash (poorly demarcated macules between breasts red no pruritic) and + pallor Neurologic: allen, fluent speech, no tremor Psychiatric: A+Ox3, euthymic affect Results & Data Vital Signs (Past 12 Hours) Vital Signs Temp Pulse Resp BP Pulse Ox 09/11/19 03:30 36.8 C 93 H 16 138/79 98 09/10/19 23:10 36.7 C 81 18 147/97 H 99 09/10/19 21:05 92 H 152/97 H Laboratory Results 09/11/19 17:54 09/11/19 17:54
--- NOTE | 2019-09-11 11:31 | Obstetrical Progress Note ---
Date of Service September 11, 2019 Subjective doing well denies headache, nausea or vomiting or any visual changes tolerating diet well ambulating well Physical Exam Constitutional: WD/WN, vitals as above comfortable Abdomen soft and non- tender no edema neg Rika's discussed plan of care with Dr Hartmann will keep here till blood pressure stabilizes Results & Data Vital Signs (Past 12 Hours) Vital Signs Temp Pulse Resp BP Pulse Ox 09/11/19 08:30 142/92 H 09/11/19 07:35 37 C 91 H 20 156/103 H 98 09/11/19 03:30 36.8 C 93 H 16 138/79 98 Laboratory Results 09/08/19 09/08/19 09/08/19 11:32 11:32 11:32 WBC 10.79 RBC 3.81 L Hgb 11.7 L Hct 33.4 L MCV 87.7 MCH 30.7 MCHC 35.0 RDW Std Deviation 47.6 H RDW Coeff of Camilla 14.9 H Plt Count 60 L MPV Immature Gran % (Auto) 3.7 Neut % (Auto) 73.3 Lymph % (Auto) 13.7 [place] % (Auto) 7.1 Eos % (Auto) 1.9 Baso % (Auto) 0.3 Immature Gran # (Auto) 0.40 H Neut # (Auto) 7.90 H Lymph # (Auto) 1.48 [place] # (Auto) 0.77 H Eos # (Auto) 0.21 Baso # (Auto) 0.03 Absolute Nucleated RBC 0.03 H Nucleated RBC % (auto) 0.2 Platelet Estimate Decreased L Giant Platelets Tear Drop Cells 1+ Sodium 138 Potassium 4.2 Chloride 107 Carbon Dioxide 23 Anion Gap 8.0 BUN 18 Creatinine 1.54 H Est Cr Clr Drug Dosing 59.1 Est GFR ( Amer) 51.6 Est GFR (Non-Af Amer) 44.5 BUN/Creatinine Ratio 11.4 Glucose 95 Uric Acid 7.9 H Calcium 8.6 Magnesium Magnesium (Sulf Ther) Total Bilirubin Direct Bilirubin AST 22 ALT 32 Alkaline Phosphatase Lactate Dehydrogenase 200 Total Protein Albumin Globulin Albumin/Globulin Ratio Urine Color Urine Appearance Urine pH Ur Specific [place] Urine Protein Urine Glucose (UA) Urine Ketones Urine Blood Urine Nitrite Urine Bilirubin Urine Urobilinogen Ur Leukocyte Esterase Urine WBC (Auto) Urine RBC (Auto) U Hyaline Cast (Auto) U Epithel Cells (Auto) Urine Bacteria (Auto) Urine RBC Urine WBC Ur Epithelial Cells Urine Bacteria Ur Random Creatinine U Random Total Protein Protein/Creatinin Ratio Blood Type Antibody Screen 09/08/19 09/08/19 09/08/19 13:40 13:40 15:20 WBC 11.99 H RBC 3.90 L Hgb 12.0 Hct 33.9 L MCV 86.9 MCH 30.8 MCHC 35.4 RDW Std Deviation 46.6 H RDW Coeff of Camilla 14.8 H Plt Count 66 L MPV Immature Gran % (Auto) Neut % (Auto) Lymph % (Auto) [place] % (Auto) Eos % (Auto) Baso % (Auto) Immature Gran # (Auto) Neut # (Auto) Lymph # (Auto) [place] # (Auto) Eos # (Auto) Baso # (Auto) Absolute Nucleated RBC 0.02 H Nucleated RBC % (auto) 0.2 Platelet Estimate Decreased L Giant Platelets Tear Drop Cells Sodium Potassium Chloride Carbon Dioxide Anion Gap BUN Creatinine Est Cr Clr Drug Dosing Est GFR ( Amer) Est GFR (Non-Af Amer) BUN/Creatinine Ratio Glucose Uric Acid Calcium Magnesium Magnesium (Sulf Ther) Total Bilirubin Direct Bilirubin AST ALT Alkaline Phosphatase Lactate Dehydrogenase Total Protein Albumin Globulin Albumin/Globulin Ratio Urine Color Yellow Urine Appearance Clear Urine pH 6.5 Ur Specific [place] 1.008 Urine Protein Trace H Urine Glucose (UA) Negative Urine Ketones Negative Urine Blood Negative Urine Nitrite Negative Urine Bilirubin Negative Urine Urobilinogen Negative Ur Leukocyte Esterase Negative Urine WBC (Auto) 1-5 Urine RBC (Auto) 0-4 U Hyaline Cast (Auto) 0 U Epithel Cells (Auto) 20-30 H Urine Bacteria (Auto) Negative Urine RBC Urine WBC Ur Epithelial Cells Urine Bacteria Ur Random Creatinine 37.8 U Random Total Protein 21.7 H Protein/Creatinin Ratio 0.6 H Blood Type Antibody Screen 09/08/19 09/08/19 09/08/19 15:20 21:26 21:26 WBC 13.04 H RBC 4.09 L Hgb 12.4 Hct 35.7 L MCV 87.3 MCH 30.3 MCHC 34.7 RDW Std Deviation 46.5 H RDW Coeff of Camilla 14.7 H Plt Count 69 L MPV Immature Gran % (Auto) Neut % (Auto) Lymph % (Auto) [place] % (Auto) Eos % (Auto) Baso % (Auto) Immature Gran # (Auto) Neut # (Auto) Lymph # (Auto) [place] # (Auto) Eos # (Auto) Baso # (Auto) Absolute Nucleated RBC Nucleated RBC % (auto) Platelet Estimate Decreased L Giant Platelets Tear Drop Cells Sodium Potassium Chloride Carbon Dioxide Anion Gap BUN Creatinine Est Cr Clr Drug Dosing Est GFR ( Amer) Est GFR (Non-Af Amer) BUN/Creatinine Ratio Glucose Uric Acid Calcium Magnesium Magnesium (Sulf Ther) 6.5 Total Bilirubin Direct Bilirubin AST ALT Alkaline Phosphatase Lactate Dehydrogenase Total Protein Albumin Globulin Albumin/Globulin Ratio Urine Color Urine Appearance Urine pH Ur Specific [place] Urine Protein Urine Glucose (UA) Urine Ketones Urine Blood Urine Nitrite Urine Bilirubin Urine Urobilinogen Ur Leukocyte Esterase Urine WBC (Auto) Urine RBC (Auto) U Hyaline Cast (Auto) U Epithel Cells (Auto) Urine Bacteria (Auto) Urine RBC Urine WBC Ur Epithelial Cells Urine Bacteria Ur Random Creatinine U Random Total Protein Protein/Creatinin Ratio Blood Type O Positive Antibody Screen NEGATIVE 09/09/19 09/09/19 09/09/19 03:56 05:56 05:56 WBC 13.75 H RBC 4.11 L Hgb 12.5 Hct 35.9 L MCV 87.3 MCH 30.4 MCHC 34.8 RDW Std Deviation 47.2 H RDW Coeff of Camilla 14.9 H Plt Count 68 L MPV Immature Gran % (Auto) 2.5 Neut % (Auto) 81.7 Lymph % (Auto) 9.6 [place] % (Auto) 4.8 Eos % (Auto) 1.2 Baso % (Auto) 0.2 Immature Gran # (Auto) 0.34 H Neut # (Auto) 11.23 H Lymph # (Auto) 1.32 [place] # (Auto) 0.66 H Eos # (Auto) 0.17 Baso # (Auto) 0.03 Absolute Nucleated RBC Nucleated RBC % (auto) Platelet Estimate Decreased L Giant Platelets Tear Drop Cells Sodium 133 L Potassium 4.4 Chloride 100 Carbon Dioxide 24 Anion Gap 9.0 BUN 15 Creatinine 1.54 H Est Cr Clr Drug Dosing 59.1 Est GFR ( Amer) 51.6 Est GFR (Non-Af Amer) 44.5 BUN/Creatinine Ratio 9.7 L Glucose 89 Uric Acid 8.3 H Calcium 8.1 L Magnesium Magnesium (Sulf Ther) 8.0 7.8 Total Bilirubin 0.4 Direct Bilirubin < 0.1 AST 23 ALT 33 Alkaline Phosphatase 134 H Lactate Dehydrogenase Total Protein 7.0 Albumin 2.9 L Globulin 4.1 H Albumin/Globulin Ratio 0.7 L Urine Color Urine Appearance Urine pH Ur Specific [place] Urine Protein Urine Glucose (UA) Urine Ketones Urine Blood Urine Nitrite Urine Bilirubin Urine Urobilinogen Ur Leukocyte Esterase Urine WBC (Auto) Urine RBC (Auto) U Hyaline Cast (Auto) U Epithel Cells (Auto) Urine Bacteria (Auto) Urine RBC Urine WBC Ur Epithelial Cells Urine Bacteria Ur Random Creatinine U Random Total Protein Protein/Creatinin Ratio Blood Type Antibody Screen 09/09/19 09/10/19 09/10/19 11:25 01:57 06:09 WBC 15.86 H RBC 3.24 L Hgb 9.7 L Hct 28.6 L MCV 88.3 MCH 29.9 MCHC 33.9 RDW Std Deviation 47.4 H RDW Coeff of Camilla 14.8 H Plt Count 75 L MPV 12.5 H Immature Gran % (Auto) Neut % (Auto) Lymph % (Auto) [place] % (Auto) Eos % (Auto) Baso % (Auto) Immature Gran # (Auto) Neut # (Auto) Lymph # (Auto) [place] # (Auto) Eos # (Auto) Baso # (Auto) Absolute Nucleated RBC Nucleated RBC % (auto) Platelet Estimate Giant Platelets Tear Drop Cells Sodium Potassium Chloride Carbon Dioxide Anion Gap BUN Creatinine Est Cr Clr Drug Dosing Est GFR ( Amer) Est GFR (Non-Af Amer) BUN/Creatinine Ratio Glucose Uric Acid Calcium Magnesium Magnesium (Sulf Ther) 7.5 6.6 Total Bilirubin Direct Bilirubin AST ALT Alkaline Phosphatase Lactate Dehydrogenase Total Protein Albumin Globulin Albumin/Globulin Ratio Urine Color Urine Appearance Urine pH Ur Specific [place] Urine Protein Urine Glucose (UA) Urine Ketones Urine Blood Urine Nitrite Urine Bilirubin Urine Urobilinogen Ur Leukocyte Esterase Urine WBC (Auto) Urine RBC (Auto) U Hyaline Cast (Auto) U Epithel Cells (Auto) Urine Bacteria (Auto) Urine RBC Urine WBC Ur Epithelial Cells Urine Bacteria Ur Random Creatinine U Random Total Protein Protein/Creatinin Ratio Blood Type Antibody Screen 09/10/19 09/10/19 09/10/19 06:12 20:30 20:34 WBC RBC Hgb Hct MCV MCH MCHC RDW Std Deviation RDW Coeff of Camilla Plt Count MPV Immature Gran % (Auto) Neut % (Auto) Lymph % (Auto) [place] % (Auto) Eos % (Auto) Baso % (Auto) Immature Gran # (Auto) Neut # (Auto) Lymph # (Auto) [place] # (Auto) Eos # (Auto) Baso # (Auto) Absolute Nucleated RBC Nucleated RBC % (auto) Platelet Estimate Giant Platelets Tear Drop Cells Sodium 132 L 137 Potassium 4.3 4.0 Chloride 99 106 Carbon Dioxide 24 24 Anion Gap 9.0 7.0 BUN 20 H 30 H Creatinine 1.85 H D 2.25 H D Est Cr Clr Drug Dosing 49.2 40.4 Est GFR ( Amer) 41.3 32.6 Est GFR (Non-Af Amer) 35.7 28.1 BUN/Creatinine Ratio 10.6 13.3 Glucose 73 111 H Uric Acid Calcium 6.8 L D 7.2 L Magnesium 6.6 H* 4.2 H Magnesium (Sulf Ther) Total Bilirubin 0.4 0.2 Direct Bilirubin AST 24 19 ALT 29 27 Alkaline Phosphatase 101 98 Lactate Dehydrogenase Total Protein 5.8 L 6.2 L Albumin 2.4 L 2.7 L Globulin 3.4 3.5 Albumin/Globulin Ratio 0.7 L 0.8 L Urine Color Urine Appearance Urine pH Ur Specific [place] Urine Protein Urine Glucose (UA) Urine Ketones Urine Blood Urine Nitrite Urine Bilirubin Urine Urobilinogen Ur Leukocyte Esterase Urine WBC (Auto) Urine RBC (Auto) U Hyaline Cast (Auto) U Epithel Cells (Auto) Urine Bacteria (Auto) Urine RBC Urine WBC Ur Epithelial Cells Urine Bacteria Ur Random Creatinine U Random Total Protein Protein/Creatinin Ratio Blood Type Antibody Screen 09/10/19 09/10/19 09/10/19 20:37 20:37 21:10 WBC 10.57 RBC 2.82 L Hgb 8.5 L Hct 25.1 L MCV 89.0 MCH 30.1 MCHC 33.9 RDW Std Deviation 48.7 H RDW Coeff of Camilla 15.1 H Plt Count 73 L MPV 12.6 H Immature Gran % (Auto) 1.7 Neut % (Auto) 74.3 Lymph % (Auto) 15.0 [place] % (Auto) 7.1 Eos % (Auto) 1.7 Baso % (Auto) 0.2 Immature Gran # (Auto) 0.18 H Neut # (Auto) 7.85 H Lymph # (Auto) 1.59 [place] # (Auto) 0.75 H Eos # (Auto) 0.18 Baso # (Auto) 0.02 Absolute Nucleated RBC Nucleated RBC % (auto) Platelet Estimate Giant Platelets Tear Drop Cells Sodium Potassium Chloride Carbon Dioxide Anion Gap BUN Creatinine Est Cr Clr Drug Dosing Est GFR ( Amer) Est GFR (Non-Af Amer) BUN/Creatinine Ratio Glucose Uric Acid Calcium Magnesium Magnesium (Sulf Ther) Total Bilirubin Direct Bilirubin AST ALT Alkaline Phosphatase Lactate Dehydrogenase 306 H Total Protein Albumin Globulin Albumin/Globulin Ratio Urine Color Red Urine Appearance Cloudy A Urine pH 5.0 Ur Specific [place] 1.010 Urine Protein 2+ H Urine Glucose (UA) Negative Urine Ketones Negative Urine Blood 3+ H Urine Nitrite Negative Urine Bilirubin Negative Urine Urobilinogen Negative Ur Leukocyte Esterase 1+ H Urine WBC (Auto) Urine RBC (Auto) U Hyaline Cast (Auto) U Epithel Cells (Auto) Urine Bacteria (Auto) Urine RBC >30 H Urine WBC 10-30 H Ur Epithelial Cells >30 H Urine Bacteria 1+ H Ur Random Creatinine U Random Total Protein Protein/Creatinin Ratio Blood Type Antibody Screen 09/10/19 09/11/19 09/11/19 21:10 06:26 06:26 WBC 10.80 RBC 2.92 L Hgb 8.7 L Hct 26.2 L MCV 89.7 MCH 29.8 MCHC 33.2 RDW Std Deviation 49.6 H RDW Coeff of Camilla 15.2 H Plt Count 83 L MPV 12.1 H Immature Gran % (Auto) 2.1 Neut % (Auto) 78.2 Lymph % (Auto) 11.4 [place] % (Auto) 6.4 Eos % (Auto) 1.6 Baso % (Auto) 0.3 Immature Gran # (Auto) 0.23 H Neut # (Auto) 8.45 H Lymph # (Auto) 1.23 [place] # (Auto) 0.69 H Eos # (Auto) 0.17 Baso # (Auto) 0.03 Absolute Nucleated RBC Nucleated RBC % (auto) Platelet Estimate Giant Platelets 1+ Tear Drop Cells Sodium 139 Potassium 4.0 Chloride 107 Carbon Dioxide 26 Anion Gap 6.0 BUN 28 H Creatinine 1.86 H D Est Cr Clr Drug Dosing 48.9 Est GFR ( Amer) 41.1 Est GFR (Non-Af Amer) 35.4 BUN/Creatinine Ratio 15.2 Glucose 81 Uric Acid Calcium 7.9 L Magnesium 3.5 H Magnesium (Sulf Ther) Total Bilirubin 0.5 Direct Bilirubin AST 23 ALT 32 Alkaline Phosphatase 95 Lactate Dehydrogenase Total Protein 6.6 Albumin 2.7 L Globulin 3.9 Albumin/Globulin Ratio 0.7 L Urine Color Urine Appearance Urine pH Ur Specific [place] Urine Protein Urine Glucose (UA) Urine Ketones Urine Blood Urine Nitrite Urine Bilirubin Urine Urobilinogen Ur Leukocyte Esterase Urine WBC (Auto) Urine RBC (Auto) U Hyaline Cast (Auto) U Epithel Cells (Auto) Urine Bacteria (Auto) Urine RBC Urine WBC Ur Epithelial Cells Urine Bacteria Ur Random Creatinine 44.4 U Random Total Protein 123.7 H Protein/Creatinin Ratio 2.8 H Blood Type Antibody Screen 09/11/19 06:26 WBC RBC Hgb Hct MCV MCH MCHC RDW Std Deviation RDW Coeff of Camilla Plt Count MPV Immature Gran % (Auto) Neut % (Auto) Lymph % (Auto) [place] % (Auto) Eos % (Auto) Baso % (Auto) Immature Gran # (Auto) Neut # (Auto) Lymph # (Auto) [place] # (Auto) Eos # (Auto) Baso # (Auto) Absolute Nucleated RBC Nucleated RBC % (auto) Platelet Estimate Giant Platelets Tear Drop Cells Sodium Potassium Chloride Carbon Dioxide Anion Gap BUN Creatinine Est Cr Clr Drug Dosing Est GFR ( Amer) Est GFR (Non-Af Amer) BUN/Creatinine Ratio Glucose Uric Acid Calcium Magnesium Magnesium (Sulf Ther) Total Bilirubin Direct Bilirubin AST ALT Alkaline Phosphatase Lactate Dehydrogenase 321 H Total Protein Albumin Globulin Albumin/Globulin Ratio Urine Color Urine Appearance Urine pH Ur Specific [place] Urine Protein Urine Glucose (UA) Urine Ketones Urine Blood Urine Nitrite Urine Bilirubin Urine Urobilinogen Ur Leukocyte Esterase Urine WBC (Auto) Urine RBC (Auto) U Hyaline Cast (Auto) U Epithel Cells (Auto) Urine Bacteria (Auto) Urine RBC Urine WBC Ur Epithelial Cells Urine Bacteria Ur Random Creatinine U Random Total Protein Protein/Creatinin Ratio Blood Type Antibody Screen
[2019-09-11] MEDS: ACETAMINOPHEN 325 MG TAB PO PRN ×2 (11:39→21:09)
[2019-09-11 18:15] LABS: Hematocrit (blood only) 27.1 % (37-47); Hemoglobin 9.1 g/dL (12.0-16.0); Mean Corpuscular Hemoglobin 30.4 pg (25-34); Mean Corpuscular Hgb Conc 33.6 g/dL (32-36); Mean Corpuscular Volume 90.6 fL (80-100); RDW Coefficient of Variation 15.2 % (11.5-14.5); RDW Standard Deviation 50.5 fL (36.4-46.3); Red Blood Count 2.99 M/uL (4.2-5.4); White Blood Count 13.57 K/uL (4.8-10.8)
[2019-09-11 18:20] LABS: Mean Platelet Volume 11.7 fL (7.4-10.4); Platelet Count 89 K/uL (130-400)
[2019-09-11 18:28] LABS: Albumin Level 3.1 gm/dl (3.4-5.0); BUN Creatinine Ratio 15.4 (10-20); Calcium 8.5 mg/dl (8.5-10.1); Creatinine Clr Calc Pharmacy 46.7 ml/min; Est GFR (African American) 38.8; Est GFR (Non-African American) 33.5; Potassium 3.7 mmol/L (3.5-5.1)
[2019-09-11 18:31] LABS: Albumin Globulin Ratio 0.8 (0.9-2); Bilirubin,Total 0.3 mg/dl (0.2-1); Total Protein 7.1 gm/dl (6.4-8.2)
[2019-09-11] MEDS ORDERED: LABETALOL HCL 100 MG TAB PO PRN (19:19)
[2019-09-11] MEDS: ENOXAPARIN INJ 40 MG/0.4 ML SYR SQ SCH (22:14)
[2019-09-11 23:54] VITALS: TEMP 98.2
[2019-09-12 06:52] LABS: Hematocrit (blood only) 26.2 % (37-47); Hemoglobin 8.6 g/dL (12.0-16.0); Mean Corpuscular Hemoglobin 29.7 pg (25-34); Mean Corpuscular Hgb Conc 32.8 g/dL (32-36); Mean Corpuscular Volume 90.3 fL (80-100); RDW Coefficient of Variation 15.3 % (11.5-14.5); RDW Standard Deviation 50.2 fL (36.4-46.3); White Blood Count 12.31 K/uL (4.8-10.8)
[2019-09-12 07:23] LABS: Albumin Level 2.8 gm/dl (3.4-5.0); Calcium 8.8 mg/dl (8.5-10.1); Creatinine Clr Calc Pharmacy 51.1 ml/min; Est GFR (African American) 43.3; Est GFR (Non-African American) 37.4; Potassium 4.1 mmol/L (3.5-5.1)
[2019-09-12 07:26] LABS: Albumin Globulin Ratio 0.7 (0.9-2); Bilirubin,Total 0.3 mg/dl (0.2-1); Globulin 3.9 gm/dl (2.5-4.0); Total Protein 6.7 gm/dl (6.4-8.2)
[2019-09-12 07:28] LABS: Mean Platelet Volume 11.5 fL (7.4-10.4); Platelet Count 82 K/uL (130-400)
[2019-09-12] MEDS: DOCUSATE SODIUM 100 MG CAP PO SCH (08:44)
[2019-09-12] MEDS: LABETALOL HCL 200 MG TAB PO SCH (08:44)
[2019-09-12] MEDS: PRENATAL VITAMIN 1 TAB PO SCH (08:44)
[2019-09-12] MEDS: ACETAMINOPHEN 325 MG TAB PO PRN (08:44)
--- NOTE | 2019-09-12 08:52 | Obstetrical Progress Note ---
Date of Service September 12, 2019 Subjective Patient is seen and examined. She feels well, no complaints. Likes to be discharged today States getting " stanley" here and it makes her BP to go up Ambulating without dizziness Voiding without difficulty Tolerating regular diet with out N&V Bleeding is minimal No QUIROGA/ Change in vision/ numbness/ tingling/ weakness/ fever/ chills/ CP/ SOB/ N&V/ Leg pain Bottle feeding without problems Discussed contraception with patient in details. Abstinence for 6 weeks, progestin only pills, Nexplanon, IUD's, Mirena/ Kylena and Paragard Good candidate for Kyleena is planning for Vasectomy Vital Signs Temp Pulse Resp BP Pulse Ox 09/12/19 05:29 147/87 H 09/12/19 03:14 146/98 H 09/12/19 01:12 137/84 09/11/19 23:15 36.8 C 83 18 143/89 H 09/11/19 21:10 36.7 C 86 18 133/89 09/11/19 19:10 36.7 C 97 H 18 134/84 09/11/19 18:00 101 H 18 156/94 H 09/11/19 15:10 36.8 C 86 18 138/93 99 09/11/19 13:30 37 C 99 H 20 146/95 H 99 09/11/19 12:42 36.8 C 83 18 154/101 H 100 09/11/19 10:45 152/99 H Intake and Output 09/11/19 09/12/19 09/12/19 22:59 06:59 14:59 Output Total 400 / 2800 600 / 2800 Balance -400 / -1400 -600 / -1400 Output: Urine 400 / 2800 600 / 2800 09/12/19 09/12/19 09/12/19 Range/Units 06:20 06:20 06:20 WBC 12.31 H (4.8-10.8) K/uL RBC 2.90 L (4.2-5.4) M/uL Hgb 8.6 L (12.0-16.0) g/dL Hct 26.2 L (37-47) % MCV 90.3 (80-100) fL MCH 29.7 (25-34) pg MCHC 32.8 (32-36) g/dL RDW Std Deviation 50.2 H (36.4-46.3) fL RDW Coeff of Camilla 15.3 H (11.5-14.5) % Plt Count 82 L (130-400) K/uL MPV 11.5 H (7.4-10.4) fL Sodium 139 (136-145) mmol/L Potassium 4.1 (3.5-5.1) mmol/L Chloride 107 (98-107) mmol/L Carbon Dioxide 25 (21-32) mmol/L Anion Gap 7.0 (3-11) BUN 25 H (7-18) mg/dl Creatinine 1.78 H (0.6-1.2) mg/dl Est Cr Clr Drug Dosing 51.1 ml/min Est GFR ( Amer) 43.3 Est GFR (Non-Af Amer) 37.4 BUN/Creatinine Ratio 14.0 (10-20) Glucose 81 (70-99) mg/dl Calcium 8.8 (8.5-10.1) mg/dl Total Bilirubin 0.3 (0.2-1) mg/dl AST 67 H (15-37) U/L ALT 79 H (12-78) U/L Alkaline Phosphatase 106 (45-117) U/L Lactate Dehydrogenase 303 H (84-246) U/L Total Protein 6.7 (6.4-8.2) gm/dl Albumin 2.8 L (3.4-5.0) gm/dl Globulin 3.9 (2.5-4.0) gm/dl Albumin/Globulin Ratio 0.7 L (0.9-2) 09/11/19 09/11/19 09/11/19 Range/Units 17:54 17:54 17:54 WBC 13.57 H (4.8-10.8) K/uL RBC 2.99 L (4.2-5.4) M/uL Hgb 9.1 L (12.0-16.0) g/dL Hct 27.1 L (37-47) % MCV 90.6 (80-100) fL MCH 30.4 (25-34) pg MCHC 33.6 (32-36) g/dL RDW Std Deviation 50.5 H (36.4-46.3) fL RDW Coeff of Camilla 15.2 H (11.5-14.5) % Plt Count 89 L (130-400) K/uL MPV 11.7 H (7.4-10.4) fL Sodium 137 (136-145) mmol/L Potassium 3.7 (3.5-5.1) mmol/L Chloride 105 (98-107) mmol/L Carbon Dioxide 26 (21-32) mmol/L Anion Gap 6.0 (3-11) BUN 30 H (7-18) mg/dl Creatinine 1.95 H (0.6-1.2) mg/dl Est Cr Clr Drug Dosing 46.7 ml/min Est GFR ( Amer) 38.8 Est GFR (Non-Af Amer) 33.5 BUN/Creatinine Ratio 15.4 (10-20) Glucose 112 H (70-99) mg/dl Calcium 8.5 (8.5-10.1) mg/dl Total Bilirubin 0.3 (0.2-1) mg/dl AST 36 (15-37) U/L ALT 43 (12-78) U/L Alkaline Phosphatase 107 (45-117) U/L Lactate Dehydrogenase 317 H (84-246) U/L Total Protein 7.1 (6.4-8.2) gm/dl Albumin 3.1 L (3.4-5.0) gm/dl Globulin 4.0 (2.5-4.0) gm/dl Albumin/Globulin Ratio 0.8 L (0.9-2) PE: General: Alert, orientedx3, NAD Abd: soft, NT, fundus firm, below Umbilicus Perineum intact, Lochia rubra minimal Ext; NT, no edema, Homans sign neg/neg AP: 33 yo s/p , ppd# 3, h/o CHT, superimposed preeclampsia with severe features, h/o APL syndrome, t. penia VSS Afebrile doing well clinicall Creatinine coming down Platelets stable AST, ALT normal Desires to be discharged today Pending Nephrology evaluation Continue routine care All questions were answered Discussed when to call f/u with us in a week and PCP/ Nephrology Results & Data Vital Signs (Past 12 Hours) Vital Signs Temp Pulse Resp BP 09/12/19 05:29 147/87 H 09/12/19 03:14 146/98 H 09/12/19 01:12 137/84 09/11/19 23:15 36.8 C 83 18 143/89 H 09/11/19 21:10 36.7 C 86 18 133/89
[2019-09-12] MEDS ORDERED: FERROUS SULFATE 325 MG TAB PO SCH (09:00)
--- NOTE | 2019-09-12 09:29 | Obstetrical Progress Note ---
Date of Service September 12, 2019 Subjective I spoke with Dr. Mai who is okay with her going home, likes to her to repeat labs early this week and next week and f/u with her on 09/22 LFT's slightly elevated today, not doubled Patient is aware and really likes to go home today Discussed when to call and what to look for Recommended labs on 09/14 and 09/21 f/u with us this week and next week All questions were answered Results & Data Vital Signs (Past 12 Hours) Vital Signs Temp Pulse Resp BP Pulse Ox 09/12/19 08:40 36.8 C 102 H 20 149/92 H 99 09/12/19 05:29 147/87 H 09/12/19 03:14 146/98 H 09/12/19 01:12 137/84 09/11/19 23:15 36.8 C 83 18 143/89 H
[2019-09-16 08:42] VITALS: BP 129/62; PULSE 89; O2SAT 94
== END 2019-09-12 11:26 | disposition home or self-care (01) | DRG 806 ==
LOC: OPB 10:31 → 4S1 10:32 → 4S2 09-10 11:25

== ENCOUNTER 2019-09-15 01:39 | Inpatient (IN) ==
[2019-09-15] MEDS ORDERED: cefTRIAXone SODIUM 2,000 MG/70 ML BAG IV STA (02:01)
[2019-09-15] MEDS ORDERED: HYDROmorphone INJ 1 MG/ML SYRINGE IV STA (02:01)
[2019-09-15] MEDS ORDERED: ONDANSETRON INJ 2 MG/ML 2 ML VIAL IV STA (02:01)
[2019-09-15] MEDS ORDERED: HYDROmorphone INJ 0.5 MG/0.5 ML SYR ONE ×2 (02:45→03:52)
[2019-09-15] MEDS ORDERED: ONDANSETRON INJ 2 MG/ML 2 ML VIAL ONE (03:12)
[2019-09-15] MEDS ORDERED: cefTRIAXone SODIUM 2000MG/70ML D5W IV ONE (03:12)
[2019-09-15 04:27] LABS: Pregnancy Test, Serum Positive (Negative)
[2019-09-15 04:55] LABS: Appearance Urine Turbid (Clear); Bacteria Urine Automated Negative (Negative); Bilirubin Urine Negative (Negative); Blood Urine 3+ (Negative); Cast Urine Automated 0 /lpf (0-5); Color Urine Orange; Epithelial Cell Urine Auto 0-5 /lpf (0-5); Glucose Urine UA Negative (Negative); Ketones Urine Negative (Negative); Leukocyte Esterase Urine 1+ (Negative); Nitrite Urine Negative (Negative); Protein Urine 3+ (Negative); RBC Urine Automated >30 /hpf (0-4); Specific Gravity Urine 1.019 (1.000-1.030); Urobilinogen Urine Negative (Negative)
[2019-09-15 04:58] LABS: Alanine Aminotransferase 120 U/L (12-78); Albumin Level 3.5 gm/dl (3.4-5.0); Alkaline Phosphatase 126 U/L (45-117); Aspartate Aminotransferase 37 U/L (15-37); BUN Creatinine Ratio 13.2 (10-20); Bilirubin Direct 0.1 mg/dl (0-0.2); Bilirubin,Total 0.6 mg/dl (0.2-1); Blood Urea Nitrogen 29 mg/dl (7-18); Calcium 9.6 mg/dl (8.5-10.1); Carbon Dioxide 24 mmol/L (21-32); Chloride 102 mmol/L (98-107); Est GFR (African American) 34.1; Est GFR (Non-African American) 29.4; Glucose 107 mg/dl (70-99); Lipase 119 U/L (73-393); Potassium 4.1 mmol/L (3.5-5.1); Sodium 136 mmol/L (136-145); Total Protein 7.8 gm/dl (6.4-8.2)
[2019-09-15 05:25] LABS: Hematocrit (blood only) 30.2 % (37-47); Mean Corpuscular Hemoglobin 29.8 pg (25-34); Mean Corpuscular Hgb Conc 33.1 g/dL (32-36); Mean Corpuscular Volume 89.9 fL (80-100); Mean Platelet Volume 12.5 fL (7.4-10.4); Platelet Count 84 K/uL (130-400); RDW Coefficient of Variation 14.7 % (11.5-14.5); RDW Standard Deviation 47.9 fL (36.4-46.3); Red Blood Count 3.36 M/uL (4.2-5.4); White Blood Count 17.62 K/uL (4.8-10.8)
[2019-09-15 05:54] LABS: Basophils # (auto) 0.03 K/uL (0-0.2); Basophils % (auto) 0.2 %; Eosinophils # (auto) 0.39 K/uL (0-0.5); Eosinophils % (auto) 2.2 %; Immature Granulocytes # (auto) 0.61 K/uL (0.00-0.02); Immature Granulocytes % (auto) 3.5 %; Lymphocytes # (auto) 1.37 K/uL (1.2-3.4); Lymphocytes % (auto) 7.8 %; Monocytes # (auto) 1.25 K/uL (0.11-0.59); Monocytes % (auto) 7.1 %; Neutrophils # (auto) 13.97 K/uL (1.4-6.5); Neutrophils % (auto) 79.2 %
[2019-09-15] MEDS: HYDROmorphone INJ 0.5 MG/0.5 ML SYR IV PRN ×4 (06:15→11:32)
--- NOTE | 2019-09-15 07:23 | Ultrasound Report ---
US pelvic complete HISTORY: 33 years-old Female pt c/o enlarged uterus acute pelvic and back pain, 6 days status post v aginal delivery. COMPARISON: CT abdomen and pelvis 09/15/2019 TECHNIQUE: Multiple real-time sonographic images of the deep pelvic structures were obtained transabd ominally assessing grayscale appearance and color flow FINDINGS: Heterogeneous enlarged appearance of the anteflexed uterus measures 16.2 x 6.8 x 8.5 cm. No myometria l mass lesion identified. Endometrium is thickened and heterogeneous, 2.8 cm demonstrating no central flow. Mild degree of complex debris noted within the lower uterine segment and endocervical canal. The right ovary measures 4.1 x 2.9 x 3.3 cm and is unremarkable with arterial inflow an venous outflo w. The left ovary measures 3.6 x 1.8 x 2.1 cm and is also unremarkable with arterial inflow and venou s outflow. No significant free pelvic fluid identified. IMPRESSION: 1. Enlarged heterogeneous postgravid appearance of the uterus and endometrium without evidence of ret ained products of conception. 2. Complex debris noted within the lower uterine segment and endocervical canal suggestive of blood p roducts. 3. Unremarkable sonographic appearance of the bilateral ovaries. The above report was generated using voice recognition software. It may contain grammatical, syntax o r spelling errors. Electronically signed by: Kendrick Muse M.D. 09/15/2019 7:22 AM
--- NOTE | 2019-09-15 07:39 | CT Scan Report ---
ABDOMEN AND PELVIS CT WITHOUT CONTRAST HISTORY: Acute generalized abdominal and pelvic pain with recent vaginal delivery Pt c/o Abd pain TECHNIQUE: Multiaxial CT images of the abdomen and pelvis were performed without contrast. A dose lo wering technique was utilized adhering to the principles of ALARA. COMPARISON STUDY: Pelvic ultrasound of same day FINDINGS: Asymmetrically increased density of the lateral inferior right breast is partially imaged. Lung bases appear clear. No pneumatosis or pneumoperitoneum. Imaged inferior cardiac chambers appear unremarkab le. Mild gallbladder distention with gallbladder wall thickening. There is a single punctate gallston e noted within the gallbladder fundus. Mild edema within the marianne hepatis. Prominent marianne hepatic l ymph node, 7 mm. No choledocholithiasis or biliary ductal dilation identified. Spleen is mildly enlar ged, 14.0 cm. Unremarkable liver. Pancreas and adrenal glands are unremarkable. Mild symmetric bilate ral hydronephrosis with mild stranding within the right renal pelvis and surrounding the proximal rig ht ureter. Additional stranding/edema of the pelvis surrounds the uterus, urinary bladder and distal ureters. Mild urinary bladder wall thickening. Enlarged post gravid appearance of the uterus with hem orrhagic debris within the endometrial canal. Nonspecific mildly enlarged periaortic and pericaval lymph nodes measure up to 1.0 cm in short axis. Additional mildly enlarged lymph nodes of the celiac axis and periportal distributions. 1.8 cm divert iculum of the gastric fundus. No bowel obstruction or bowel wall thickening. Normal appendix. Diastas es recti with tiny fat filled periumbilical hernia. Foci of subcutaneous emphysema with adjacent nodu larity involves the bilateral lateral abdominal wall distributions suggestive of injection sites. Bon es appear intact. IMPRESSION: 1. Enlarged postgravid appearance of the uterus with hemorrhagic debris noted within the endometrial canal. 2. Mild gallbladder distention with wall thickening and a single punctate gallstone. Correlate clinic ally to exclude cholecystitis. 3. Nonspecific adenopathy of the abdomen and pelvis as above. 4. Mild symmetric bilateral hydronephrosis, likely physiologic related to recent 5. Normal appendix 6. Splenomegaly. Electronically signed by: Kendrick Muse M.D. 09/15/2019 7:38 AM
[2019-09-15] MEDS ORDERED: LABETALOL HCL 200 MG TAB PO STA (07:52)
--- NOTE | 2019-09-15 07:53 | XRay Report ---
XR chest 1V portable HISTORY: weakness COMPARISON: None. FINDINGS: The lungs are clear. Cardiac silhouette is normal in size. No pleural effusions. No pneumot horax. IMPRESSION: No acute process. Electronically signed by: Everette Estrada M.D. 09/15/2019 7:52 AM
--- NOTE | 2019-09-15 09:02 | Emergency Department Note ---
Entered by Rob Benjamin acting as a scribe for Lacho Amos MD History of Present Illness General Chief complaint: Urinary Symptoms Stated complaint: PEEING BLOOD,HURTS TO MOVE,S/P ,CATH X2DYS Time Seen by Provider: 09/15/19 01:43 Source: patient History of Present Illness Onset (ago): day(s) (yesterday morning) Location: abdomen Pain Consistency: + constant Maximum Pain Intensity: 9 Associated symptoms: + other (Positive for hematuria and a rash on her face.) The patient is a 33 year old female who presents to the emergency department with complaints of constant abdominal pain beginning yesterday morning. The patient states that she gave six days ago. She notes that she had a isaías ter in place while she was in the hospital. She reports that she stayed in the hospital for an extra day because her creatinine was high. The patient states that she developed abdominal pain yesterday morning, as well as hematuria and a rash on her face. She believes that she had a UTI and she notes that she got Macrobid. She notes that she has taken two doses of Macrobid so far. Home Medications Home Medications Medication Instructions Recorded Confirmed Type enoxaparin 40 mg SUBCUT DAILY@2200 #40 syr 09/12/19 09/19/19 Rx labetalol 200 mg PO TID #90 tab 09/12/19 09/19/19 Rx oxycodone 5 mg PO Q8H PRN #10 tab 09/12/19 09/19/19 Rx Vitamin 1 tab PO DAILY 09/15/19 09/19/19 History cholecalciferol (vitamin D3) 0 unit PO DAILY 09/15/19 09/19/19 History [Vitamin D3] cyanocobalamin (vitamin B-12) 100 mcg PO DAILY 09/15/19 09/19/19 History [Vitamin B-12] ferrous fumarate-vitamin C 1 tab PO QAM #30 tab 09/17/19 09/19/19 Rx [Cheryl-Sequels (iron-vit c)] Allergies Allergy/AdvReac Type Severity Reaction Status Date / Time guaifenesin Allergy Unknown HIVES FROM Verified 09/19/19 12:54 MUCINEX Past Med/Surg History Medical History Acute anemia Antiphospholipid antibody syndrome Currently taking Lovenox until 36 weeks then will take Heparin, then will have Lovenox 6 weeks Anxiety no meds CKD (chronic kidney disease) stage 3, GFR 30-59 ml/min Depression no meds History of ovarian cyst Hypertension Labetalol 200mg PO BID Iron deficiency takes supplements Thrombocytopenia no meds taken - follows conventional underwriter UTI (urinary tract infection) Surgical History H/O dilation and curettage Family History Grandfather (Paternal) Colorectal cancer Father Diabetes Social History Preferred Language: Mongolian Communication Ability: Effective 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 and A total of 10 systems reviewed and were otherwise negative Physical Exam Vital Signs Vital Signs - 24 hr 09/15/19 01:44 09/15/19 05:07 09/15/19 05:53 Temperature 36.7 C Temperature Source Oral Pulse Rate 111 H 87 Pulse Rate [Finger] 113 H Pulse Rhythm Regular Pulse Rhythm [Finger] Regular Pulse Strength [Finger] Normal Respiratory Rate 20 18 18 Respiratory Effort / Characteristics Non-Labored Spontaneous Respiratory Depth Normal Normal Respiratory Pattern Regular Blood Pressure 161/110 H Blood Pressure [Right Arm] 168/120 H Blood Pressure Mean 127 Blood Pressure Mean [Right Arm] 136 Blood Pressure Position [Right Arm] Pulse Oximetry 98 98 98 Oxygen Delivery Method Room Air Room Air Room Air Sepsis Recent Fever Within 48 Hours No Sepsis New/Unexplained Change in Mental Status No Sepsis Action Taken by Nursing No Action Required 09/15/19 06:50 09/15/19 07:34 09/15/19 07:56 Temperature Temperature Source Pulse Rate Pulse Rate [Finger] 95 H 98 H 98 H Pulse Rhythm Pulse Rhythm [Finger] Pulse Strength [Finger] Respiratory Rate 16 17 17 Respiratory Effort / Characteristics Non-Labored Spontaneous Non-Labored Spontaneous Non-Labored Spontaneous Respiratory Depth Normal Respiratory Pattern Regular Blood Pressure Blood Pressure [Right Arm] 171/100 H 163/108 H 148/108 H Blood Pressure Mean Blood Pressure Mean [Right Arm] 123 126 121 Blood Pressure Position [Right Arm] Lying Lying Lying Pulse Oximetry 97 96 97 Oxygen Delivery Method Room Air Room Air Room Air Sepsis Recent Fever Within 48 Hours Sepsis New/Unexplained Change in Mental Status Sepsis Action Taken by Nursing GENERAL: Awake, alert, well-appearing, in no acute distress HENT: Normocephalic, atraumatic. Oropharynx unremarkable. EYES: Normal conjunctiva. Sclera non-icteric. NECK: Supple. No nuchal rigidity. FROM. No JVD. RESPIRATORY: Clear to auscultation. CARDIAC: Regular rate, normal rhythm. Extremities warm and well perfused. Pulses equal. ABDOMEN: Soft, non-distended. No tenderness to palpation. No rebound or guarding. No masses. RECTAL: Deferred. MUSCULOSKELETAL: Chest examination reveals no tenderness. The back is symmetrical on inspection without obvious abnormality. There is no CVA tenderness to palpation. No joint edema. LOWER EXTREMITIES: Calves are equal size bilaterally and non-tender. No edema. No discoloration. NEURO: Normal sensorium. No sensory or motor deficits noted. SKIN: No jaundice noted. Slapped cheek appearance. Course 0200: The patient was evaluated in room B2. A complete history and physical exam was performed. 0546: I discussed the patient's case with Misty Shen. Consultations Consultation #1: [id number]: I discussed the patient's case with Misty Shen. Time: 05:46 Administered Medications Discontinued Medications Ceftriaxone Sodium (Rocephin) Confirm Administered Dose 2,000 mg IV .[employer]-MED ONE Stop: 09/15/19 03:13 Last Admin: 09/15/19 04:56 Dose: Not Given Documented by: [id number] Cyanocobalamin (Vitamin B-12) 100 mcg PO DAILY LEIA Stop: 10/16/19 08:59 Last Admin: 09/17/19 08:36 Dose: 100 mcg Documented by: [id number] Admin: 09/16/19 09:27 Dose: 100 mcg Documented by: [id number] Docusate Sodium (Colace) 100 mg PO BID [facility] Stop: 10/16/19 10:59 Last Admin: 09/17/19 08:36 Dose: 100 mg Documented by: [id number] Admin: 09/16/19 20:51 Dose: 100 mg Documented by: [id number] Admin: 09/16/19 12:13 Dose: 100 mg Documented by: [id number] Docusate Sodium/Ferrous Fumarate (Chreyl-Sequels) 65 mg PO QAM [facility] Stop: 10/17/19 12:59 Last Admin: 09/17/19 13:16 Dose: 65 mg Documented by: [id number] Enoxaparin Sodium (Lovenox) 40 mg SQ DAILY@2200 [facility] Stop: 10/15/19 21:59 Last Admin: 09/16/19 22:05 Dose: 40 mg Documented by: [id number] Hydromorphone HCl (Dilaudid) 1 mg IV NOW STA Stop: 09/15/19 02:02 Last Admin: 09/15/19 05:04 Dose: Not Given Documented by: [id number] Hydromorphone HCl (Dilaudid) Confirm Administered Dose 0.5 mg .ROUTE .STK-MED ONE Stop: 09/15/19 02:46 Last Admin: 09/15/19 04:57 Dose: Not Given Documented by: [id number] Hydromorphone HCl (Dilaudid) Confirm Administered Dose 0.5 mg .ROUTE .STK-MED ONE Stop: 09/15/19 03:53 Last Admin: 09/15/19 04:56 Dose: Not Given Documented by: [id number] Hydromorphone HCl (Dilaudid) 0.5 mg IV Q15M PRN PRN Reason: Pain Stop: 09/29/19 06:11 Last Admin: 09/15/19 11:32 Dose: 0.5 mg Documented by: [id number] Admin: 09/15/19 09:22 Dose: 0.5 mg Documented by: [id number] Admin: 09/15/19 07:48 Dose: 0.5 mg Documented by: [id number] Admin: 09/15/19 06:15 Dose: 0.5 mg Documented by: [id number] Ceftriaxone Sodium (Rocephin) 2,000 mg in 70 mls @ 140 mls/hr IV NOW STA Stop: 09/15/19 02:30 Last Admin: 09/15/19 05:04 Dose: Not Given Documented by: [id number] Lactated Ringer's (Lr) 1,000 mls @ 125 mls/hr IV .Q8H PRN; Protocol PRN Reason: L&D Protocol Stop: 09/17/19 10:44 Last Infusion: 09/16/19 13:45 Dose: 125 mls/hr Documented by: [id number] Admin: 09/16/19 11:51 Dose: 125 mls/hr Documented by: [id number] Infusion: 09/16/19 11:13 Dose: 125 mls/hr Documented by: [id number] Infusion: 09/16/19 07:13 Dose: 125 mls/hr Documented by: [id number] Admin: 09/16/19 03:12 Dose: 125 mls/hr Documented by: [id number] Infusion: 09/16/19 03:08 Dose: 125 mls/hr Documented by: [id number] Admin: 09/15/19 19:08 Dose: 125 mls/hr Documented by: [id number] Infusion: 09/15/19 19:08 Dose: 0 mls/hr Documented by: [id number] Infusion: 09/15/19 18:40 Dose: 125 mls/hr Documented by: [id number] Infusion: 09/15/19 12:25 Dose: 125 mls/hr Documented by: [id number] Admin: 09/15/19 11:27 Dose: 125 mls/hr Documented by: [id number] Magnesium Sulfate (Magnesium Sulfate / Wtr) 40 gm in 1,000 mls @ 12.5 mls/hr IV .Q24H LEIA Stop: 10/15/19 11:44 Last Infusion: 09/16/19 11:30 Dose: 0 gm/hr, 0 mls/hr Documented by: [id number] Cosigned by: [id number] Infusion: 09/16/19 07:12 Dose: 0.5 gm/hr, 12.5 mls/hr Documented by: [id number] Cosigned by: [id number] Infusion: 09/16/19 06:42 Dose: 12.5 mls/hr Documented by: [id number] Cosigned by: [id number] Infusion: 09/16/19 06:30 Dose: 25 mls/hr Documented by: [id number] Cosigned by: [id number] Infusion: 09/16/19 05:30 Dose: 25 mls/hr Documented by: [id number] Cosigned by: [id number] Infusion: 09/16/19 04:30 Dose: 25 mls/hr Documented by: [id number] Cosigned by: [id number] Infusion: 09/16/19 03:30 Dose: 25 mls/hr Documented by: [id number] Cosigned by: [id number] Infusion: 09/16/19 02:30 Dose: 25 mls/hr Documented by: [id number] Cosigned by: [id number] Infusion: 09/16/19 01:30 Dose: 25 mls/hr Documented by: [id number] Cosigned by: [id number] Infusion: 09/16/19 00:30 Dose: 25 mls/hr Documented by: [id number] Cosigned by: [id number] Infusion: 09/15/19 23:30 Dose: 25 mls/hr Documented by: [id number] Cosigned by: [id number] Infusion: 09/15/19 22:30 Dose: 25 mls/hr Documented by: [id number] Cosigned by: [id number] Infusion: 09/15/19 21:47 Dose: 25 mls/hr Documented by: [id number] Cosigned by: [id number] Infusion: 09/15/19 20:30 Dose: 50 mls/hr Documented by: [id number] Cosigned by: [id number] Infusion: 09/15/19 19:30 Dose: 50 mls/hr Documented by: [id number] Cosigned by: [id number] Infusion: 09/15/19 18:40 Dose: 50 mls/hr Documented by: [id number] Cosigned by: [id number] Admin: 09/15/19 12:17 Dose: 50 mls/hr Documented by: [id number] Cosigned by: [id number] Labetalol HCl (Normodyne) 200 mg PO NOW STA Stop: 09/15/19 07:53 Last Admin: 09/15/19 08:41 Dose: 200 mg Documented by: [id number] Labetalol HCl (Normodyne) 200 mg PO TID LEIA Stop: 10/15/19 13:59 Last Admin: 09/17/19 13:16 Dose: 200 mg Documented by: [id number] Admin: 09/17/19 08:36 Dose: 200 mg Documented by: [id number] Admin: 09/16/19 20:51 Dose: 200 mg Documented by: [id number] Admin: 09/16/19 14:01 Dose: 200 mg Documented by: [id number] Admin: 09/16/19 09:27 Dose: 200 mg Documented by: [id number] Admin: 09/15/19 21:01 Dose: 200 mg Documented by: [id number] Admin: 09/15/19 14:26 Dose: 200 mg Documented by: [id number] Magnesium Sulfate (Magnesium Sulfate / Wtr) 4 gm IV ONE ONE Stop: 09/15/19 11:16 Last Admin: 09/15/19 11:27 Dose: 4 gm Documented by: [id number] Cosigned by: [id number] Ondansetron HCl (Zofran) 4 mg IV NOW STA Stop: 09/15/19 02:02 Last Admin: 09/15/19 05:05 Dose: Not Given Documented by: [id number] Ondansetron HCl (Zofran) Confirm Administered Dose 4 mg .ROUTE .STK-MED ONE Stop: 09/15/19 03:13 Last Admin: 09/15/19 04:56 Dose: Not Given Documented by: [id number] Prenat Multivit/Parts Salesman/Iron/Folic Ac ( Vitamin) 1 tab PO DAILY LEIA Stop: 10/16/19 08:59 Last Admin: 09/17/19 08:36 Dose: 1 tab Documented by: [id number] Admin: 09/16/19 09:25 Dose: 1 tab Documented by: [id number] Impression & Plan Abdominal pain, CKD (chronic kidney disease) stage 3, GFR 30-59 ml/min Discharge Plan Visit Data *Final* Discharge Date/Time: 09/15/19 11:48 Chief Complaint: Urinary Symptoms Stated Complaint: PEEING BLOOD,HURTS TO MOVE,S/P ,CATH X2DYS ED Provider: Lacho Amos Discharge Problem: Abdominal pain, CKD (chronic kidney disease) stage 3, GFR 30-59 ml/min Patient Disposition: Admitted As Inpatient Condition: Good Discharge Instructions Interventions: ED Discharge Assessment Last Done: 09/15/19 11:48 Medical Decision Making Differential Diagnosis Differential diagnosis: Etiologies such as biliary colic, cholecystitis, hepatitis, perihepatitis, pancreatitis, cardiac disease, pancreatitis, gastritis, peptic ulcer disease, appendicitis, ovarian cyst, ovarian torsion, ectopic , pelvic inflammatory disease, cystitis, diverticulitis, mesenteric ischemia, inflammatory bowel disease, ileus, bowel obstruction, aortic pathology, shingles, as well as others were considered. Medical Records Attestation: I reviewed the patient's medical records. Home Medications Current Medication List: was personally reviewed by me Laboratory Data Attestation: I reviewed the patient's lab results. Result diagrams: 09/16/19 11:49 09/16/19 11:49 Lab Results 09/15/19 09/15/19 09/15/19 Range/Units 01:50 01:50 02:10 WBC 17.62 H (4.8-10.8) K/uL RBC 3.36 L (4.2-5.4) M/uL Hgb 10.0 L (12.0-16.0) g/dL POC Hgb (12.0-16.0) g/dl Hct 30.2 L (37-47) % POC Hct (37-47) % MCV 89.9 (80-100) fL MCH 29.8 (25-34) pg MCHC 33.1 (32-36) g/dL RDW Std Deviation 47.9 H (36.4-46.3) fL RDW Coeff of Camilla 14.7 H (11.5-14.5) % Plt Count 84 L (130-400) K/uL MPV 12.5 H (7.4-10.4) fL Immature Gran % (Auto) 3.5 % Neut % (Auto) 79.2 % Lymph % (Auto) 7.8 % [place] % (Auto) 7.1 % Eos % (Auto) 2.2 % Baso % (Auto) 0.2 % Immature Gran # (Auto) 0.61 H (0.00-0.02) K/uL Neut # (Auto) 13.97 H (1.4-6.5) K/uL Lymph # (Auto) 1.37 (1.2-3.4) K/uL [place] # (Auto) 1.25 H (0.11-0.59) K/uL Eos # (Auto) 0.39 (0-0.5) K/uL Baso # (Auto) 0.03 (0-0.2) K/uL POC Sodium (135-144) mEq/L Sodium (136-145) mmol/L POC Potassium (3.3-5.0) mEq/L Potassium (3.5-5.1) mmol/L POC Chloride (101-112) mEq/L Chloride (98-107) mmol/L Carbon Dioxide (21-32) mmol/L POC Total CO2 (24-31) mEq/l Anion Gap (3-11) POC Anion Gap (16-25) mmol/L POC BUN (7-18) mg/dl BUN (7-18) mg/dl Creatinine (0.6-1.2) mg/dl POC Creatinine (0.6-1.3) mg/dl Est Cr Clr Drug Dosing Est GFR ( Amer) Est GFR (Non-Af Amer) BUN/Creatinine Ratio (10-20) Glucose (70-99) mg/dl POC Glucose (other) (70-99) mg/dl Calcium (8.5-10.1) mg/dl POC Ioniz Calcium Dejon (1.12-1.32) mmol/l Total Bilirubin (0.2-1) mg/dl Direct Bilirubin (0-0.2) mg/dl AST (15-37) U/L ALT (12-78) U/L Alkaline Phosphatase (45-117) U/L Total Protein (6.4-8.2) gm/dl Albumin (3.4-5.0) gm/dl Lipase (73-393) U/L HCG, Qual (Negative) Urine Color [place] Urine Appearance Turbid A (Clear) Urine pH 5.0 (4.5-7.5) Ur Specific [place] 1.019 (1.000-1.030) Urine Protein 3+ H (Negative) Urine Glucose (UA) Negative (Negative) Urine Ketones Negative (Negative) Urine Blood 3+ H (Negative) Urine Nitrite Negative (Negative) Urine Bilirubin Negative (Negative) Urine Urobilinogen Negative (Negative) Ur Leukocyte Esterase 1+ H (Negative) Urine WBC (Auto) 1-5 (0-5) /hpf Urine RBC (Auto) >30 H (0-4) /hpf U Hyaline Cast (Auto) 0 (0-5) /lpf U Epithel Cells (Auto) 0-5 (0-5) /lpf Urine Bacteria (Auto) Negative (Negative) Urine Test Cancelled 09/15/19 09/15/19 09/15/19 Range/Units 02:10 02:10 02:58 WBC (4.8-10.8) K/uL RBC (4.2-5.4) M/uL Hgb (12.0-16.0) g/dL POC Hgb 9.9 L (12.0-16.0) g/dl Hct (37-47) % POC Hct 29 L (37-47) % MCV (80-100) fL MCH (25-34) pg MCHC (32-36) g/dL RDW Std Deviation (36.4-46.3) fL RDW Coeff of Camilla (11.5-14.5) % Plt Count (130-400) K/uL MPV (7.4-10.4) fL Immature Gran % (Auto) % Neut % (Auto) % Lymph % (Auto) % [place] % (Auto) % Eos % (Auto) % Baso % (Auto) % Immature Gran # (Auto) (0.00-0.02) K/uL Neut # (Auto) (1.4-6.5) K/uL Lymph # (Auto) (1.2-3.4) K/uL [place] # (Auto) (0.11-0.59) K/uL Eos # (Auto) (0-0.5) K/uL Baso # (Auto) (0-0.2) K/uL POC Sodium 135 (135-144) mEq/L Sodium 136 (136-145) mmol/L POC Potassium 4.2 (3.3-5.0) mEq/L Potassium 4.1 (3.5-5.1) mmol/L POC Chloride 103 (101-112) mEq/L Chloride 102 (98-107) mmol/L Carbon Dioxide 24 (21-32) mmol/L POC Total CO2 23 L (24-31) mEq/l Anion Gap 10.0 (3-11) POC Anion Gap 14.0 L (16-25) mmol/L POC BUN 28 H (7-18) mg/dl BUN 29 H (7-18) mg/dl Creatinine 2.17 H (0.6-1.2) mg/dl POC Creatinine 2.3 H (0.6-1.3) mg/dl Est Cr Clr Drug Dosing Not Reportable Est GFR ( Amer) 34.1 Est GFR (Non-Af Amer) 29.4 BUN/Creatinine Ratio 13.2 (10-20) Glucose 107 H (70-99) mg/dl POC Glucose (other) 108 H (70-99) mg/dl Calcium 9.6 (8.5-10.1) mg/dl POC Ioniz Calcium Dejon 1.18 (1.12-1.32) mmol/l Total Bilirubin 0.6 (0.2-1) mg/dl Direct Bilirubin 0.1 (0-0.2) mg/dl AST 37 (15-37) U/L ALT 120 H (12-78) U/L Alkaline Phosphatase 126 H (45-117) U/L Total Protein 7.8 (6.4-8.2) gm/dl Albumin 3.5 (3.4-5.0) gm/dl Lipase 119 (73-393) U/L HCG, Qual Positive (Negative) Urine Color Urine Appearance (Clear) Urine pH (4.5-7.5) Ur Specific [place] (1.000-1.030) Urine Protein (Negative) Urine Glucose (UA) (Negative) Urine Ketones (Negative) Urine Blood (Negative) Urine Nitrite (Negative) Urine Bilirubin (Negative) Urine Urobilinogen (Negative) Ur Leukocyte Esterase (Negative) Urine WBC (Auto) (0-5) /hpf Urine RBC (Auto) (0-4) /hpf U Hyaline Cast (Auto) (0-5) /lpf U Epithel Cells (Auto) (0-5) /lpf Urine Bacteria (Auto) (Negative) Urine Test Imaging Data Attestation: I personally reviewed and interpreted this imaging study as follows: My Impression: 1 VIEW CHEST X-RAY: No evidence of pneumonia, congestion, and pneumothorax. Radiologist's Impression: Radiology results as stated below per my review and the radiologist's interpretation: CT ABDOMEN & PELVIS Without Contrast: The uterus is enlarged with high density material in the endometrial canal, likely blood products. No acute process along the GI tract. Mild bilateral hydronephrosis likely related to the size of the uterus. Trace mucosal thickening of the gallbladder with a single calcified stone versus tiny polyp. Acute cholecystitis is considered unlikely. No free fluid. No acute osseous abnormality. Radiologist: Yousif Adams MD. ECG Data Attestation: I personally reviewed and interpreted this ECG as follows: Indication: + abdominal pain Rate (beats per minute): 91 Rhythm: + normal sinus ECG [place]: + Normal ECG ST segments: no ST depression and no ST elevation Additional Comments: Normal EKG, QTC 447. Blood Pressure Blood Pressure Findings: Elevated blood pressure Blood Pressure Disposition: elevated BP felt to be situational MDM Narrative This is a 33-year-old female who presents emergency department after a recent . Patient presents during a period of high volume and high acuity during [facility] downtime. Patient's creatinine was found to be elevated at 2.2. Using shared medical decision-making with the patient she was sent for CAT scan of the abdomen pelvis. This was concerning for a enlarged uterus. I did discuss the case with obstetrics who asked that the patient be sent for an ultrasound. In the meantime the patient was given Dilaudid for her pain. Repeat examination revealed improvement in the patient's symptoms. Patient's ultrasound was discussed with client support analyst on-call who agreed to see the patient. Patient was in agreement with the treatment plan. Discharge Problem: Abdominal pain Qualifiers: Abdominal location: unspecified location Qualified Code(s): R10.9 - Unspecified abdominal pain The scribe's documentation has been prepared under my direction and personally reviewed by me in its entirety. I confirm that the note above accurately reflects all work, treatment, procedures, and medical decision making performed by me.
[2019-09-15 09:32] LABS: iSTAT Creatinine 2.3 mg/dl (0.6-1.3); iSTAT Hemoglobin 9.9 g/dl (12.0-16.0); iSTAT Ionized Calcium 1.18 mmol/l (1.12-1.32); iSTAT Potassium 4.2 mEq/L (3.3-5.0)
[2019-09-15] MEDS ORDERED: MAGNESIUM SULFATE 4GM / WTR 100 ML BAG IV ONE (11:15)
[2019-09-15] MEDS: LACTATED RINGER'S 1,000 ML IV PRN ×2 (11:27→19:08)
[2019-09-15 11:43] LABS: Hematocrit (blood only) 28.1 % (37-47); Hemoglobin 9.3 g/dL (12.0-16.0); Mean Corpuscular Hemoglobin 29.8 pg (25-34); Mean Corpuscular Hgb Conc 33.1 g/dL (32-36); Mean Corpuscular Volume 90.1 fL (80-100); RDW Coefficient of Variation 14.9 % (11.5-14.5); RDW Standard Deviation 48.8 fL (36.4-46.3); Red Blood Count 3.12 M/uL (4.2-5.4); White Blood Count 13.88 K/uL (4.8-10.8)
[2019-09-15] MEDS ORDERED: MAGNESIUM SULFATE / WTR 40 GM/1,000 ML BAG IV SCH (11:45)
[2019-09-15 11:59] LABS: Alanine Aminotransferase 91 U/L (12-78); Albumin Level 2.8 gm/dl (3.4-5.0); Aspartate Aminotransferase 29 U/L (15-37); BUN Creatinine Ratio 12.8 (10-20); Blood Urea Nitrogen 29 mg/dl (7-18); Calcium 8.4 mg/dl (8.5-10.1); Carbon Dioxide 25 mmol/L (21-32); Chloride 106 mmol/L (98-107); Est GFR (African American) 31.8; Est GFR (Non-African American) 27.4; Glucose 94 mg/dl (70-99); Potassium 4.1 mmol/L (3.5-5.1); Sodium 139 mmol/L (136-145)
[2019-09-15 12:02] LABS: Albumin Globulin Ratio 0.7 (0.9-2); Alkaline Phosphatase 108 U/L (45-117); Bilirubin,Total 0.4 mg/dl (0.2-1); Total Protein 6.8 gm/dl (6.4-8.2)
[2019-09-15 12:11] LABS: Mean Platelet Volume 11.9 fL (7.4-10.4); Platelet Count 74 K/uL (130-400)
[2019-09-15 12:12] LABS: Basophils # (auto) 0.03 K/uL (0-0.2); Basophils % (auto) 0.2 %; Eosinophils # (auto) 0.34 K/uL (0-0.5); Eosinophils % (auto) 2.4 %; Immature Granulocytes # (auto) 0.37 K/uL (0.00-0.02); Immature Granulocytes % (auto) 2.7 %; Lymphocytes # (auto) 1.08 K/uL (1.2-3.4); Lymphocytes % (auto) 7.8 %; Monocytes # (auto) 1.45 K/uL (0.11-0.59); Monocytes % (auto) 10.4 %; Neutrophils # (auto) 10.61 K/uL (1.4-6.5); Neutrophils % (auto) 76.5 %; Platelet Estimate Decreased (Normal)
[2019-09-15] MEDS: LABETALOL HCL 200 MG TAB PO SCH ×2 (14:26→21:01)
[2019-09-15 15:51] LABS: Hematocrit (blood only) 26.4 % (37-47); Hemoglobin 8.8 g/dL (12.0-16.0); Mean Corpuscular Hemoglobin 29.6 pg (25-34); Mean Corpuscular Hgb Conc 33.3 g/dL (32-36); Mean Corpuscular Volume 88.9 fL (80-100); RDW Coefficient of Variation 14.8 % (11.5-14.5); RDW Standard Deviation 48.6 fL (36.4-46.3); Red Blood Count 2.97 M/uL (4.2-5.4); White Blood Count 14.41 K/uL (4.8-10.8)
[2019-09-15 16:19] LABS: Alanine Aminotransferase 81 U/L (12-78); Albumin Globulin Ratio 0.7 (0.9-2); Albumin Level 2.5 gm/dl (3.4-5.0); Alkaline Phosphatase 97 U/L (45-117); Aspartate Aminotransferase 28 U/L (15-37); BUN Creatinine Ratio 13.7 (10-20); Bilirubin,Total 0.3 mg/dl (0.2-1); Blood Urea Nitrogen 29 mg/dl (7-18); Calcium 8.8 mg/dl (8.5-10.1); Carbon Dioxide 22 mmol/L (21-32); Chloride 105 mmol/L (98-107); Est GFR (African American) 34.7; Est GFR (Non-African American) 29.9; Globulin 3.7 gm/dl (2.5-4.0); Glucose 98 mg/dl (70-99); Magnesium Therapeutic L&D Only 6.1 mg/dL (4.0-8.0); Potassium 4.3 mmol/L (3.5-5.1); Sodium 138 mmol/L (136-145); Total Protein 6.2 gm/dl (6.4-8.2)
[2019-09-15 16:29] LABS: Mean Platelet Volume 11.6 fL (7.4-10.4); Platelet Count 75 K/uL (130-400)
[2019-09-15 16:34] LABS: Basophils # (auto) 0.03 K/uL (0-0.2); Basophils % (auto) 0.2 %; Eosinophils # (auto) 0.42 K/uL (0-0.5); Eosinophils % (auto) 2.9 %; Hypochromasia Present; Immature Granulocytes # (auto) 0.45 K/uL (0.00-0.02); Immature Granulocytes % (auto) 3.1 %; Lymphocytes # (auto) 1.43 K/uL (1.2-3.4); Lymphocytes % (auto) 9.9 %; Monocytes # (auto) 1.35 K/uL (0.11-0.59); Monocytes % (auto) 9.4 %; Neutrophils # (auto) 10.73 K/uL (1.4-6.5); Neutrophils % (auto) 74.5 %
--- NOTE | 2019-09-15 16:43 | Progress Note ---
Date of Service September 15, 2019 Subjective S; Pt doing well On Magnesium 2gm/hr No headache, SOB or RUQ pain O; stable BP on meds Stable Plt at 74, ALT improving as well as creatinine Plan; clinically stable continue expectant management on magnesium pending nephrology consult serial labs pending Results & Data Vital Signs (Past 12 Hours) Vital Signs Temp Pulse Pulse Resp BP BP Pulse Ox 09/15/19 16:37 84 123/75 09/15/19 16:35 84 96 09/15/19 16:30 82 96 09/15/19 16:25 85 96 09/15/19 16:20 98 H 96 09/15/19 16:15 36.8 C 93 H 18 100 09/15/19 16:10 94 H 96 09/15/19 16:07 88 135/63 09/15/19 16:05 87 95 09/15/19 16:00 87 94 09/15/19 15:55 86 95 09/15/19 15:50 87 94 09/15/19 15:45 87 94 09/15/19 12:15 20 09/15/19 11:09 104 H 20 144/109 H 98 09/15/19 10:08 96 H 16 137/83 95 09/15/19 09:35 96 H 16 123/91 96 09/15/19 09:03 112 H 20 147/105 H 98 09/15/19 07:56 98 H 17 148/108 H 97 09/15/19 07:34 98 H 17 163/108 H 96 09/15/19 06:50 95 H 16 171/100 H 97 09/15/19 05:53 87 18 98 09/15/19 05:07 113 H 18 168/120 H 98
--- NOTE | 2019-09-15 18:25 | Nephrology Consultation ---
Date of Consultation September 15, 2019 Assessment & Plan (1) CKD (chronic kidney disease) stage 3, GFR 30-59 ml/min: unknown what her baseline creatinine is b/c no values drawn while not pregant; suspect it will be higher than mid 1's; creatinine of 2 may be normal for her when not (in [facility]); time will tell; urine studies will be unreliable in this post period in terms of assessing proteinuria, hematuria; note that her urine sediment as inpt is identical to that from before delivery. she did not have gross hematuria but more vaginal bleeding from description above -daily bmp while in house -no nsaids -note that plts are at her baseline; anemia was stable as of this am (dropping somewhat through day w/ multiple draws), LDH and LFTs are wnl; renal function is stable to slightly improved if trended w/in [employer] (creat reads higher here than in [facility]); albumin generally stable -repeat labs in am; will send complement and elisabeth as well -she will absolutely need renal bx at some point but prefer to wait until about 6 wks after provided she is stable; based on what I see anne would not change this bx plan -she already had f/u w/ me scheduled in clinic next week; should keep it Present on Admission?: Yes (2) Chronic hypertension affecting : controlled > continue labetalol current dose Present on Admission?: Yes (3) Antiphospholipid antibody syndrome complicating : on lovenox per routine during and for 6 wks post ; cont same Present on Admission?: Yes (4) Acute anemia: -to some degree expected per my understanding after vaginal delivery -cont PNV -daily CBC, cmp while in house to monitor plts, liver Present on Admission?: Yes History of Present Illness Reason for Consultation: post , preeclampsia, HTN, elevated cr Requesting Physician: Dr Lemus Attending Physician: Trevor Lemus MD History of Present Illness 33 y/o F w/ complex PMH whom I'm asked to see for renal issues above after she was admitted today for dysuria/frequency back pain concern for possible UTI after recent vaginal delivery 6 days ago c/b preeclampsia. PMH includes HTN since 09/2017, presumptive CKD 3, primary antiphospholipid syndrome dx'd 02/2018 w/o hx of thrombotic complications but w/ significant -related morbidity, chronic thrombocytopenia dx'd 2013. her baseline creatinine is difficult to est since all in our records are during and have run 1.4- 1.6 through 09/08/19; yesterday she had creatinine of 2 as OP and a UA w/ shawn urine, large blood and protein and no infection. She had a ua on 09/08 (before delivery) as OP that had no protein or blood on dipstick, incidentally. She has consistently had 250-300 mg protienuria on spot ratios but again all drawn during . she began having a facial rash on both cheeks non pruritic and dysuria/frequency on 09/13; no f/c but some worsening back pain and ongoing voiding sx through day on 09/14 and then in evenin concern for gross hematuria so came in for eval. on further discussion, had bleeding on underwear pad but none in toilet, urine w/ no color change Allergies Allergy/AdvReac Type Severity Reaction Status Date / Time guaifenesin Allergy Unknown HIVES FROM Verified 09/15/19 06:05 MUCINEX Home Medications Home Medications Medication Instructions Recorded Confirmed Type enoxaparin 40 mg SUBCUT DAILY@2200 #40 syr 09/12/19 09/15/19 Rx labetalol 200 mg PO TID #90 tab 09/12/19 09/15/19 Rx oxycodone 5 mg PO Q8H PRN #10 tab 09/12/19 09/15/19 Rx cholecalciferol (vitamin D3) 0 unit PO DAILY 09/15/19 09/15/19 History [Vitamin D3] cyanocobalamin (vitamin B-12) 100 mcg PO DAILY 09/15/19 09/15/19 History [Vitamin B-12] vit no.[id number] 1 tab PO DAILY 09/15/19 09/15/19 History [ Vitamin] Patient History Medical History Acute anemia Antiphospholipid antibody syndrome Currently taking Lovenox until 36 weeks then will take Heparin, then will have Lovenox 6 weeks Anxiety no meds CKD (chronic kidney disease) stage 3, GFR 30-59 ml/min Depression no meds History of ovarian cyst Hypertension Labetalol 200mg PO BID Iron deficiency takes supplements Thrombocytopenia no meds taken - follows supervisor functional testing UTI (urinary tract infection) Surgical History H/O dilation and curettage Family History Grandfather (Paternal) Colorectal cancer Father Diabetes Social History Preferred Language: Guyanese Communication Ability: Effective Beliefs That Will Affect Care: None marital status: Current Living Situation: Spouse Current Living Situation Comment: lives with and 10 yo son Feels Safe at Home: Yes Smoking Status: Current every day smoker Tobacco Type: cigarettes ; Cigarettes Per Day: 1 ; Second Hand Exposure: Yes ; Hx Alcohol Use: Yes (not during ) Alcohol type: beer, wine and hard liquor Hx Substance Use: No Review of Systems Review of Systems: All systems reviewed & are unremarkable except as noted in HPI & below Physical Exam Constitutional: well developed, well nourished and cooperative really tired; a bit slow to answer at first but then can give full hx Eyes: EOM intact bilaterally ENMT: Ears: no external ear abnormality Nose: no external nose abnormality Mouth: + dry oral mucous membranes Neck: no nuchal rigidity Respiratory: normal respiratory effort Auscultation: + diminished lung sounds Cardiovascular: RRR, no murmur, no edema Gastrointestinal (Abdomen): Inspection/Auscultation: normal bowel sounds Percussion/Palpation: abdomen soft; abdomen nontender Musculoskeletal: Extremities: strength 5/5 throughout Skin: + rash (BL cheeks ? malar); no lesions and no ulcers Neurologic: allen, fluent speech, no tremor; was a bit slow to waken Psychiatric: A+Ox3, euthymic affect Results & Data Vital Signs (Past 12 Hours) Vital Signs Temp Pulse Pulse Resp BP BP Pulse Ox 09/15/19 18:10 87 95 09/15/19 18:07 85 126/77 09/15/19 18:05 88 94 09/15/19 18:00 90 95 09/15/19 17:50 85 96 09/15/19 17:45 107 H 96 09/15/19 17:40 88 96 09/15/19 17:37 100 H 122/74 09/15/19 17:35 90 95 09/15/19 17:30 87 95 09/15/19 17:25 90 95 09/15/19 17:20 91 H 95 09/15/19 17:15 89 18 95 09/15/19 17:10 90 95 09/15/19 17:07 86 117/70 09/15/19 17:05 90 95 09/15/19 17:00 89 94 09/15/19 16:55 90 95 09/15/19 16:50 91 H 96 09/15/19 16:45 84 96 09/15/19 16:40 85 95 09/15/19 16:37 84 123/75 09/15/19 16:35 84 96 09/15/19 16:30 82 96 09/15/19 16:25 85 96 09/15/19 16:20 98 H 96 09/15/19 16:15 36.8 C 93 H 18 100 09/15/19 16:10 94 H 96 09/15/19 16:07 88 135/63 09/15/19 16:05 87 95 09/15/19 16:00 87 94 09/15/19 15:55 86 95 09/15/19 15:50 87 94 09/15/19 15:45 87 94 09/15/19 15:15 16 09/15/19 14:15 18 09/15/19 13:15 18 09/15/19 12:15 20 09/15/19 11:09 104 H 20 144/109 H 98 09/15/19 10:08 96 H 16 137/83 95 09/15/19 09:35 96 H 16 123/91 96 09/15/19 09:03 112 H 20 147/105 H 98 09/15/19 07:56 98 H 17 148/108 H 97 09/15/19 07:34 98 H 17 163/108 H 96 09/15/19 06:50 95 H 16 171/100 H 97 Laboratory Results 09/15/19 15:21 09/15/19 15:[address] abd/pelvis non con Asymmetrically increased density of the lateral inferior right breast is par tially imaged. Lung bases appear clear. No pneumatosis or pneumoperitoneum. Imaged inferior cardiac chambers appear unremarkable. Mild gallbladder distention with gallbladder wall thickening. There is a single punctate gallstone noted within the gallbladder fundus. Mild edema within the marianne hepatis. Prominent marianne hepatic lymph node, 7 mm. No choledocholithiasis or biliary ductal dilation identified. Spleen is mildly enlarged, 14.0 cm. Unremarkable liver. Pancreas and adrenal glands are unremarkable. Mild symmetric bilateral hydronephrosis with mild stranding within the right renal pelvis and surrounding the proximal right ureter. Additional stranding/edema of the pelvis surrounds the uterus, urinary bladder and distal ureters. Mild urinary bladder wall thickening. Enlarged post gravid appearance of the uterus with hemorrhagic debris within the endometrial canal. Nonspecific mildly enlarged periaortic and pericaval lymph nodes measure up to 1.0 cm in short axis. Additional mildly enlarged lymph nodes of the celiac axis and periportal distributions. 1.8 cm diverticulum of the gastric fundus. No bowel obstruction or bowel wall thickening. Normal appendix. Diastases recti with tiny fat filled periumbilical hernia. Foci of subcutaneous emphysema with adjacent nodularity involves the bilateral lateral abdominal wall distributions suggestive of injection sites. Bones appear intact. IMPRESSION: 1. Enlarged postgravid appearance of the uterus with hemorrhagic debris noted within the endometrial canal. 2. Mild gallbladder distention with wall thickening and a single punctate gall stone. Correlate clinically to exclude cholecystitis. 3. Nonspecific adenopathy of the abdomen and pelvis as above. 4. Mild symmetric bilateral hydronephrosis, likely physiologic related to recent 5. Normal appendix 6. Splenomegaly. CXR no acute process
[2019-09-15 18:39] LABS: Amphetamines+Metham, Urine Neg (Neg); Barbiturates, Urine Neg (Neg); Benzodiazepine, Urine Neg (Neg); Cocaine, Urine Neg (Neg); MDMA (Ecstacy), Urine Pos (Neg); Methadone, Urine Neg (Neg); Opiate, Urine Pos (Neg); Phencyclidine, Urine Neg (Neg)
[2019-09-15 20:48] LABS: Hematocrit (blood only) 26.5 % (37-47); Hemoglobin 8.9 g/dL (12.0-16.0); Mean Corpuscular Hemoglobin 30.1 pg (25-34); Mean Corpuscular Hgb Conc 33.6 g/dL (32-36); Mean Corpuscular Volume 89.5 fL (80-100); RDW Coefficient of Variation 14.7 % (11.5-14.5); RDW Standard Deviation 48.8 fL (36.4-46.3); Red Blood Count 2.96 M/uL (4.2-5.4); White Blood Count 14.17 K/uL (4.8-10.8)
[2019-09-15 20:56] LABS: Mean Platelet Volume 11.2 fL (7.4-10.4); Platelet Count 75 K/uL (130-400)
[2019-09-15 21:09] LABS: Alanine Aminotransferase 77 U/L (12-78); Albumin Level 2.5 gm/dl (3.4-5.0); Aspartate Aminotransferase 25 U/L (15-37); BUN Creatinine Ratio 13.3 (10-20); Blood Urea Nitrogen 29 mg/dl (7-18); Calcium 9.2 mg/dl (8.5-10.1); Carbon Dioxide 23 mmol/L (21-32); Chloride 105 mmol/L (98-107); Est GFR (African American) 33.3; Est GFR (Non-African American) 28.8; Glucose 96 mg/dl (70-99); Potassium 4.5 mmol/L (3.5-5.1); Sodium 138 mmol/L (136-145)
[2019-09-15 21:10] LABS: Magnesium 8.8 mg/dl (1.8-2.4)
[2019-09-15 21:14] LABS: Albumin Globulin Ratio 0.7 (0.9-2); Alkaline Phosphatase 100 U/L (45-117); Bilirubin,Total 0.3 mg/dl (0.2-1); Globulin 3.7 gm/dl (2.5-4.0); Total Protein 6.2 gm/dl (6.4-8.2)
--- NOTE | 2019-09-15 21:15 | Progress Note ---
Date of Service September 15, 2019 Subjective S; Pt doing well Pt reports feeling much better. Tolerating PO food and meds. making clear urine denies headache, SOB, RUQ pain or visual changes O; VSS. Stable Bp on labetelol Labs reviewed; Stable PLt @ 75,000, ALT. AST and LDH are now in nml range Cr. is still elevated at 2.2 and magnesium is now 8.8 A/p Pt improving will decrease Magnesium to 1gm/hr continue to monitor urine output and serial labs Results & Data Vital Signs (Past 12 Hours) Vital Signs Temp Pulse Pulse Resp BP BP Pulse Ox 09/15/19 21:10 99 H 96 09/15/19 21:05 89 98 09/15/19 21:00 82 132/77 96 09/15/19 20:55 83 94 09/15/19 20:50 82 95 09/15/19 20:45 83 95 09/15/19 20:40 81 96 09/15/19 20:35 82 96 09/15/19 20:30 83 16 148/82 H 96 09/15/19 20:25 82 95 09/15/19 20:20 84 96 09/15/19 20:15 83 96 09/15/19 20:10 82 96 09/15/19 20:05 83 96 09/15/19 20:00 98 H 97 09/15/19 19:55 84 96 09/15/19 19:50 87 97 09/15/19 19:35 104 H 96 09/15/19 19:30 36.8 C 88 18 149/82 H 96 09/15/19 19:25 78 93 09/15/19 19:24 79 82 L 09/15/19 19:20 86 96 09/15/19 19:15 84 95 09/15/19 19:11 16 09/15/19 19:10 83 95 09/15/19 19:07 83 133/76 09/15/19 19:05 86 95 09/15/19 19:00 85 96 09/15/19 18:55 83 95 09/15/19 18:50 85 95 09/15/19 18:45 85 95 09/15/19 18:40 87 94 09/15/19 18:37 85 134/79 09/15/19 18:35 85 95 09/15/19 18:25 84 95 09/15/19 18:20 87 95 09/15/19 18:15 89 18 95 09/15/19 18:10 87 95 09/15/19 18:07 85 126/77 09/15/19 18:05 88 94 09/15/19 18:00 90 95 09/15/19 17:50 85 96 09/15/19 17:45 107 H 96 09/15/19 17:40 88 96 09/15/19 17:37 100 H 122/74 09/15/19 17:35 90 95 09/15/19 17:30 87 95 09/15/19 17:25 90 95 09/15/19 17:20 91 H 95 09/15/19 17:15 89 18 95 09/15/19 17:10 90 95 09/15/19 17:07 86 117/70 09/15/19 17:05 90 95 09/15/19 17:00 89 94 09/15/19 16:55 90 95 09/15/19 16:50 91 H 96 09/15/19 16:45 84 96 09/15/19 16:40 85 95 09/15/19 16:37 84 123/75 09/15/19 16:35 84 96 09/15/19 16:30 82 96 09/15/19 16:25 85 96 09/15/19 16:20 98 H 96 09/15/19 16:15 36.8 C 93 H 18 100 09/15/19 16:10 94 H 96 09/15/19 16:07 88 135/63 09/15/19 16:05 87 95 09/15/19 16:00 87 94 09/15/19 15:55 86 95 09/15/19 15:50 87 94 09/15/19 15:45 87 94 09/15/19 15:15 16 09/15/19 14:15 18 09/15/19 13:15 18 09/15/19 12:15 20 09/15/19 11:09 104 H 20 144/109 H 98 09/15/19 10:08 96 H 16 137/83 95 09/15/19 09:35 96 H 16 123/91 96
[2019-09-15 21:18] LABS: Basophils # (auto) 0.05 K/uL (0-0.2); Basophils % (auto) 0.4 %; Eosinophils # (auto) 0.41 K/uL (0-0.5); Eosinophils % (auto) 2.9 %; Immature Granulocytes # (auto) 0.51 K/uL (0.00-0.02); Immature Granulocytes % (auto) 3.6 %; Lymphocytes # (auto) 1.65 K/uL (1.2-3.4); Lymphocytes % (auto) 11.6 %; Monocytes # (auto) 1.13 K/uL (0.11-0.59); Neutrophils # (auto) 10.42 K/uL (1.4-6.5); Neutrophils % (auto) 73.5 %
[2019-09-15] MEDS ORDERED: Nursing to Pharmacy Communication ONE (21:46)
[2019-09-15] MEDS ORDERED: ENOXAPARIN INJ 40 MG/0.4 ML SYR SQ SCH (22:00)
[2019-09-16] MEDS: LACTATED RINGER'S 1,000 ML IV PRN ×2 (03:12→11:51)
[2019-09-16 05:45] LABS: Basophils # (auto) 0.03 K/uL (0-0.2); Basophils % (auto) 0.2 %; Hematocrit (blood only) 26.7 % (37-47); Hemoglobin 8.8 g/dL (12.0-16.0); Immature Granulocytes # (auto) 0.38 K/uL (0.00-0.02); Immature Granulocytes % (auto) 2.9 %; Lymphocytes # (auto) 1.44 K/uL (1.2-3.4); Lymphocytes % (auto) 10.8 %; Mean Corpuscular Hemoglobin 29.5 pg (25-34); Mean Corpuscular Volume 89.6 fL (80-100); Mean Platelet Volume 11.7 fL (7.4-10.4); Monocytes # (auto) 1.16 K/uL (0.11-0.59); Monocytes % (auto) 8.7 %; Neutrophils # (auto) 9.91 K/uL (1.4-6.5); Neutrophils % (auto) 74.4 %; Platelet Count 101 K/uL (130-400); RDW Coefficient of Variation 14.5 % (11.5-14.5); RDW Standard Deviation 47.3 fL (36.4-46.3); Red Blood Count 2.98 M/uL (4.2-5.4); White Blood Count 13.32 K/uL (4.8-10.8)
[2019-09-16 06:18] LABS: Alanine Aminotransferase 71 U/L (12-78); Albumin Globulin Ratio 0.6 (0.9-2); Albumin Level 2.5 gm/dl (3.4-5.0); Alkaline Phosphatase 101 U/L (45-117); Aspartate Aminotransferase 21 U/L (15-37); BUN Creatinine Ratio 14.2 (10-20); Bilirubin,Total 0.4 mg/dl (0.2-1); Blood Urea Nitrogen 32 mg/dl (7-18); Calcium 9.1 mg/dl (8.5-10.1); Carbon Dioxide 23 mmol/L (21-32); Chloride 105 mmol/L (98-107); Est GFR (African American) 32.8; Est GFR (Non-African American) 28.3; Globulin 3.9 gm/dl (2.5-4.0); Glucose 91 mg/dl (70-99); Magnesium Therapeutic L&D Only 8.8 mg/dL (4.0-8.0); Potassium 4.4 mmol/L (3.5-5.1); Sodium 138 mmol/L (136-145); Total Protein 6.4 gm/dl (6.4-8.2)
[2019-09-16] MEDS ORDERED: Nursing to Pharmacy Communication ONE (06:44)
--- NOTE | 2019-09-16 07:24 | Progress Note ---
Date of Service September 16, 2019 Subjective s:Pt doing well " feeling much better this AM" No headache, RUQ pain , SOB or abdominal pain. Back pain is much improved tolerating magnesium well. Alert ,awake and oriented and not feeling well S; VSS Ht; S1S2 R/r/r Lung; CTA bilat ABd; NT, ND, + BS, Fundus below umbilicus ext; NO C/C/E Neuro; A/A/O Urine Output: Over 300/hr A/P S/p PPD #7 1. CHTN: On Labetalol. BP,s stable on Labetalol. Elevated Creatinine level 2. APAS. Pt is om Lovenox prophylaxis till 6 weeks PP. Had to d/c Lovenox for 24 hrs in light of her thrombocytopenia. Plt this AM is 101,000. the best it has been in a long time. will restart her Lovenox tonight. Pt has SCD for prophylaxis 3. Preeclampsia: LFT ( ALT and AST) are all improved with PLT and LDH. Pt is on magnesium sulphate and tolerating it well. Her magnesium level was decreased from 2gm/hr to 1gm/hr after her Mag level was 8.8. At 1gm/hr it is still 8.8 so it is again decreased to 0.5mg/hr. Pt will be 24hrs on magnesium at 11;30 AM today, at which time magnesium will be d/aviva. Noon Labs ordered Results & Data Vital Signs (Past 12 Hours) Vital Signs Temp Pulse Resp BP Pulse Ox 09/16/19 07:00 99 H 97 09/16/19 06:55 103 H 96 09/16/19 06:50 99 H 97 09/16/19 06:45 97 H 96 09/16/19 06:40 96 H 96 09/16/19 06:35 98 H 96 09/16/19 06:31 94 H 156/85 H 09/16/19 06:30 95 H 20 95 09/16/19 06:25 84 88 L 09/16/19 06:20 87 95 09/16/19 06:15 89 92 09/16/19 06:10 88 95 09/16/19 06:05 86 95 09/16/19 06:00 86 95 09/16/19 05:55 87 95 09/16/19 05:50 86 96 09/16/19 05:45 87 93 09/16/19 05:40 86 95 09/16/19 05:35 89 95 09/16/19 05:31 88 153/82 H 09/16/19 05:30 91 H 16 97 09/16/19 05:28 87 84 L 09/16/19 05:25 91 H 95 09/16/19 05:23 85 82 L 09/16/19 05:20 87 94 09/16/19 05:15 85 96 09/16/19 05:10 90 97 09/16/19 05:05 85 94 09/16/19 05:00 88 95 09/16/19 04:55 87 96 09/16/19 04:50 87 95 09/16/19 04:45 83 96 09/16/19 04:40 86 96 09/16/19 04:35 90 92 09/16/19 04:30 36.8 C 101 H 18 142/85 H 95 09/16/19 04:25 83 94 09/16/19 04:20 90 94 09/16/19 04:15 81 92 09/16/19 04:10 83 94 09/16/19 04:05 88 96 09/16/19 04:00 84 95 09/16/19 03:55 85 95 09/16/19 03:50 88 90 09/16/19 03:45 82 95 09/16/19 03:40 85 95 09/16/19 03:35 85 96 09/16/19 03:30 88 18 144/83 H 97 09/16/19 03:25 87 97 09/16/19 03:20 92 H 99 09/16/19 03:15 98 H 97 09/16/19 03:10 90 97 09/16/19 03:05 92 H 97 09/16/19 03:00 95 H 97 09/16/19 02:55 92 H 96 09/16/19 02:50 88 96 09/16/19 02:45 93 H 98 09/16/19 02:40 89 97 09/16/19 02:35 98 H 98 09/16/19 02:30 93 H 18 138/77 98 09/16/19 02:25 96 H 97 09/16/19 02:20 92 H 100 09/16/19 02:15 99 H 98 09/16/19 02:10 100 H 98 09/16/19 02:05 96 H 97 09/16/19 02:00 85 97 09/16/19 01:55 84 96 09/16/19 01:50 83 98 09/16/19 01:45 81 97 09/16/19 01:40 84 97 09/16/19 01:35 83 97 09/16/19 01:30 85 16 140/77 96 09/16/19 01:25 86 96 09/16/19 01:20 83 96 09/16/19 01:15 82 97 09/16/19 01:10 86 97 09/16/19 01:05 82 97 09/16/19 01:00 86 97 09/16/19 00:55 79 96 09/16/19 00:50 83 93 09/16/19 00:45 83 95 09/16/19 00:40 83 96 09/16/19 00:35 85 97 09/16/19 00:30 85 16 135/78 97 09/16/19 00:25 85 95 09/16/19 00:20 82 96 09/16/19 00:15 82 96 09/16/19 00:10 87 96 09/16/19 00:05 84 96 09/16/19 00:00 84 95 09/15/19 23:55 86 95 09/15/19 23:50 84 96 09/15/19 23:45 84 96 09/15/19 23:40 85 96 09/15/19 23:35 83 95 09/15/19 23:30 37.0 C 82 18 132/74 95 09/15/19 23:25 85 95 09/15/19 23:20 83 96 09/15/19 23:15 83 95 09/15/19 23:10 83 93 09/15/19 23:09 85 82 L 09/15/19 23:05 88 96 09/15/19 23:00 85 95 09/15/19 22:55 85 95 09/15/19 22:50 85 94 09/15/19 22:45 83 95 09/15/19 22:40 84 95 09/15/19 22:35 82 95 09/15/19 22:30 81 18 113/63 96 09/15/19 22:25 83 95 09/15/19 22:20 82 95 09/15/19 22:15 81 96 09/15/19 22:10 81 96 09/15/19 22:05 82 95 09/15/19 22:00 81 95 09/15/19 21:55 80 96 09/15/19 21:50 79 97 09/15/19 21:45 79 97 09/15/19 21:40 86 97 09/15/19 21:35 82 98 09/15/19 21:30 87 18 122/80 99 09/15/19 21:25 90 100 09/15/19 21:20 97 H 98 09/15/19 21:15 100 H 98 09/15/19 21:10 99 H 96 09/15/19 21:05 89 98 09/15/19 21:00 82 132/77 96 09/15/19 20:55 83 94 09/15/19 20:50 82 95 09/15/19 20:45 83 95 09/15/19 20:40 81 96 09/15/19 20:35 82 96 09/15/19 20:30 83 16 148/82 H 96 09/15/19 20:25 82 95 09/15/19 20:20 84 96 09/15/19 20:15 83 96 09/15/19 20:10 82 96 09/15/19 20:05 83 96 09/15/19 20:00 98 H 97 09/15/19 19:55 84 96 09/15/19 19:50 87 97 09/15/19 19:35 104 H 96 09/15/19 19:30 36.8 C 88 18 149/82 H 96 09/15/19 19:25 78 93 09/15/19 19:24 79 82 L 09/15/19 19:20 86 96 09/15/19 19:15 84 95 09/15/19 19:11 16 09/15/19 19:10 83 95 09/15/19 19:07 83 133/76
--- NOTE | 2019-09-16 08:53 | Nephrology Progress Note ---
Date of Service September 16, 2019 Assessment & Plan (1) CKD (chronic kidney disease) stage 3, GFR 30-59 ml/min: unknown what her baseline creatinine is b/c no values drawn while not pregant; suspect it will be higher than mid 1's; creatinine of low 2's may be normal for her when not (in [facility]); time will tell> this would translate to advanced CKD 3 or early ckd 4; urine studies will be unreliable in this post period in terms of assessing proteinuria, hematuria; note that her urine sediment as inpt is identical to that from before delivery. she did not have gross hematuria but more vaginal bleeding from description above -daily bmp while in house -no nsaids (unless ordered by hematology) >> I emphasized w/ pt -note that plts are at or better than her baseline; anemia stable as of this am (dropping somewhat through day w/ multiple draws), LDH and LFTs are wnl; renal function is stable if trended w/in [employer] (creat reads higher here than in [facility]); albumin generally stable but quite low (may be evidence of significant baseline proteinuria if persists) -f/u complement and elisabeth -she will absolutely need renal bx at some point but prefer to wait until about 6-8 wks after provided she is stable -she already had f/u w/ me scheduled in clinic next week; should keep it; should also get labs next saturday - order already in (2) Chronic hypertension affecting : controlled > continue labetalol current dose (3) Antiphospholipid antibody syndrome complicating : on lovenox per routine during and for 6 wks post ; cont same (4) Acute anemia: -to some degree expected per my understanding after vaginal delivery -cont PNV -daily CBC, cmp while in house to monitor plts, liver>> they are all satisfa ctory today (5) Tobacco use disorder: spent > 5 min d/w her today that one of the few things she can change to improve her kidney prognosis is to stop tobacco completely Present on Admission?: Yes Subjective still on mag gtt anticipated to go to late AM; no c/o; slept well; no focal numbness/weakness; no change in rash; no abd pain except suprapubic intermittently; no flank pain; ongoing low/sacral pain at times - not severe; toelrating po; no sob; no oliguria or gross hematuria; no edema Review of Systems Review of Systems: All systems reviewed & are unremarkable except as noted in HPI & below Physical Exam Constitutional: well developed, well nourished and cooperative; no acute distress (on RA sitting on side of bed) Eyes: + anicteric sclerae and EOM intact bilaterally ENMT: Ears: no external ear abnormality Nose: no external nose abnormality Mouth: + dry oral mucous membranes Neck: no nuchal rigidity Respiratory: normal respiratory effort Auscultation: lungs clear to auscultation bilaterally and + diminished lung sounds Cardiovascular: RRR, no murmur, no edema Gastrointestinal (Abdomen): Inspection/Auscultation: normal bowel sounds Percussion/Palpation: abdomen soft; abdomen nontender Musculoskeletal: Extremities: strength 5/5 throughout Skin: + rash (BL cheeks ? malar); no lesions and no ulcers Neurologic: slight psychomotor slowing as yesterday on mag infusion Psychiatric: Orientation: alert and oriented x 3 Eye Contact: good eye contact Speech: normal rate/rhythm/volume of speech Affect: + flat affect Genitourinary: espinoza w/ ample clear urine Results & Data Vital Signs (Past 12 Hours) Vital Signs Temp Pulse Resp BP Pulse Ox 09/16/19 08:05 95 H 96 09/16/19 08:00 97 H 97 09/16/19 07:55 103 H 97 09/16/19 07:50 97 H 96 09/16/19 07:45 97 H 96 09/16/19 07:40 99 H 96 09/16/19 07:35 109 H 97 09/16/19 07:30 98 H 97 09/16/19 07:25 101 H 165/87 H 97 09/16/19 07:20 101 H 97 09/16/19 07:15 102 H 97 09/16/19 07:10 111 H 98 09/16/19 07:05 103 H 97 09/16/19 07:00 99 H 97 09/16/19 06:55 103 H 96 09/16/19 06:50 99 H 97 09/16/19 06:45 97 H 96 09/16/19 06:40 96 H 96 09/16/19 06:35 98 H 96 09/16/19 06:31 94 H 156/85 H 11/13/19 06:30 95 H 20 95 09/16/19 06:25 84 88 L 09/16/19 06:20 87 95 09/16/19 06:15 89 92 09/16/19 06:10 88 95 09/16/19 06:05 86 95 09/16/19 06:00 86 95 09/16/19 05:55 87 95 09/16/19 05:50 86 96 09/16/19 05:45 87 93 09/16/19 05:40 86 95 09/16/19 05:35 89 95 09/16/19 05:31 88 153/82 H 09/16/19 05:30 91 H 16 97 09/16/19 05:28 87 84 L 09/16/19 05:25 91 H 95 09/16/19 05:23 85 82 L 09/16/19 05:20 87 94 09/16/19 05:15 85 96 09/16/19 05:10 90 97 09/16/19 05:05 85 94 09/16/19 05:00 88 95 09/16/19 04:55 87 96 09/16/19 04:50 87 95 09/16/19 04:45 83 96 09/16/19 04:40 86 96 09/16/19 04:35 90 92 09/16/19 04:30 36.8 C 101 H 18 142/85 H 95 09/16/19 04:25 83 94 09/16/19 04:20 90 94 09/16/19 04:15 81 92 09/16/19 04:10 83 94 09/16/19 04:05 88 96 09/16/19 04:00 84 95 09/16/19 03:55 85 95 09/16/19 03:50 88 90 09/16/19 03:45 82 95 09/16/19 03:40 85 95 09/16/19 03:35 85 96 09/16/19 03:30 88 18 144/83 H 97 09/16/19 03:25 87 97 09/16/19 03:20 92 H 99 09/16/19 03:15 98 H 97 09/16/19 03:10 90 97 09/16/19 03:05 92 H 97 09/16/19 03:00 95 H 97 09/16/19 02:55 92 H 96 09/16/19 02:50 88 96 09/16/19 02:45 93 H 98 09/16/19 02:40 89 97 09/16/19 02:35 98 H 98 09/16/19 02:30 93 H 18 138/77 98 09/16/19 02:25 96 H 97 09/16/19 02:20 92 H 100 09/16/19 02:15 99 H 98 09/16/19 02:10 100 H 98 09/16/19 02:05 96 H 97 09/16/19 02:00 85 97 09/16/19 01:55 84 96 09/16/19 01:50 83 98 09/16/19 01:45 81 97 09/16/19 01:40 84 97 09/16/19 01:35 83 97 09/16/19 01:30 85 16 140/77 96 09/16/19 01:25 86 96 09/16/19 01:20 83 96 09/16/19 01:15 82 97 09/16/19 01:10 86 97 09/16/19 01:05 82 97 09/16/19 01:00 86 97 09/16/19 00:55 79 96 09/16/19 00:50 83 93 09/16/19 00:45 83 95 09/16/19 00:40 83 96 09/16/19 00:35 85 97 09/16/19 00:30 85 16 135/78 97 09/16/19 00:25 85 95 09/16/19 00:20 82 96 09/16/19 00:15 82 96 09/16/19 00:10 87 96 09/16/19 00:05 84 96 09/16/19 00:00 84 95 09/15/19 23:55 86 95 09/15/19 23:50 84 96 09/15/19 23:45 84 96 09/15/19 23:40 85 96 09/15/19 23:35 83 95 09/15/19 23:30 37.0 C 82 18 132/74 95 09/15/19 23:25 85 95 09/15/19 23:20 83 96 09/15/19 23:15 83 95 09/15/19 23:10 83 93 09/15/19 23:09 85 82 L 09/15/19 23:05 88 96 09/15/19 23:00 85 95 09/15/19 22:55 85 95 09/15/19 22:50 85 94 09/15/19 22:45 83 95 09/15/19 22:40 84 95 09/15/19 22:35 82 95 09/15/19 22:30 81 18 113/63 96 09/15/19 22:25 83 95 09/15/19 22:20 82 95 09/15/19 22:15 81 96 09/15/19 22:10 81 96 09/15/19 22:05 82 95 09/15/19 22:00 81 95 09/15/19 21:55 80 96 09/15/19 21:50 79 97 09/15/19 21:45 79 97 09/15/19 21:40 86 97 09/15/19 21:35 82 98 09/15/19 21:30 87 18 122/80 99 09/15/19 21:25 90 100 09/15/19 21:20 97 H 98 09/15/19 21:15 100 H 98 09/15/19 21:10 99 H 96 09/15/19 21:05 89 98 09/15/19 21:00 82 132/77 96 09/15/19 20:55 83 94 09/15/19 20:50 82 95 09/15/19 20:45 83 95 Laboratory Results 09/16/19 05:32 09/16/19 05:32
[2019-09-16] MEDS: PRENATAL VITAMIN 1 TAB PO SCH (09:25)
[2019-09-16] MEDS: CYANOCOBALAMIN (VITAMIN B-12) 100 MCG TABLET PO SCH (09:27)
[2019-09-16] MEDS: LABETALOL HCL 200 MG TAB PO SCH ×3 (09:27→20:51)
[2019-09-16 12:08] LABS: Basophils # (auto) 0.03 K/uL (0-0.2); Basophils % (auto) 0.2 %; Eosinophils # (auto) 0.36 K/uL (0-0.5); Eosinophils % (auto) 2.7 %; Hematocrit (blood only) 26.1 % (37-47); Hemoglobin 8.8 g/dL (12.0-16.0); Immature Granulocytes # (auto) 0.28 K/uL (0.00-0.02); Immature Granulocytes % (auto) 2.1 %; Lymphocytes # (auto) 1.32 K/uL (1.2-3.4); Mean Corpuscular Hemoglobin 30.2 pg (25-34); Mean Corpuscular Hgb Conc 33.7 g/dL (32-36); Mean Corpuscular Volume 89.7 fL (80-100); Mean Platelet Volume 11.8 fL (7.4-10.4); Monocytes # (auto) 0.95 K/uL (0.11-0.59); Monocytes % (auto) 7.2 %; Neutrophils # (auto) 10.22 K/uL (1.4-6.5); Neutrophils % (auto) 77.8 %; Platelet Count 113 K/uL (130-400); RDW Coefficient of Variation 14.4 % (11.5-14.5); RDW Standard Deviation 47.5 fL (36.4-46.3); Red Blood Count 2.91 M/uL (4.2-5.4); White Blood Count 13.16 K/uL (4.8-10.8)
[2019-09-16] MEDS: DOCUSATE SODIUM 100 MG CAP PO SCH ×2 (12:13→20:51)
[2019-09-16 12:50] LABS: Alanine Aminotransferase 63 U/L (12-78); Albumin Globulin Ratio 0.6 (0.9-2); Albumin Level 2.5 gm/dl (3.4-5.0); Alkaline Phosphatase 107 U/L (45-117); Aspartate Aminotransferase 20 U/L (15-37); BUN Creatinine Ratio 13.7 (10-20); Bilirubin,Total 0.3 mg/dl (0.2-1); Blood Urea Nitrogen 31 mg/dl (7-18); Calcium 9.1 mg/dl (8.5-10.1); Carbon Dioxide 24 mmol/L (21-32); Chloride 105 mmol/L (98-107); Est GFR (African American) 31.9; Est GFR (Non-African American) 27.5; Globulin 3.9 gm/dl (2.5-4.0); Glucose 97 mg/dl (70-99); Magnesium Therapeutic L&D Only 7.5 mg/dL (4.0-8.0); Potassium 4.5 mmol/L (3.5-5.1); Sodium 138 mmol/L (136-145); Total Protein 6.4 gm/dl (6.4-8.2)
[2019-09-17 03:40] VITALS: TEMP 98.2
[2019-09-17] MEDS: CYANOCOBALAMIN (VITAMIN B-12) 100 MCG TABLET PO SCH (08:36)
[2019-09-17] MEDS: PRENATAL VITAMIN 1 TAB PO SCH (08:36)
[2019-09-17] MEDS: LABETALOL HCL 200 MG TAB PO SCH ×2 (08:36→13:16)
[2019-09-17] MEDS: DOCUSATE SODIUM 100 MG CAP PO SCH (08:36)
[2019-09-17 09:27] VITALS: BP 147/91; O2SAT 97
[2019-09-17] MEDS ORDERED: FERROUS FUMARATE/ASCORBIC ACID 65 MG CAPCR PO SCH (13:00)
[2019-09-17 13:04] VITALS: PULSE 104
--- NOTE | 2019-09-17 13:06 | Obstetrical Progress Note ---
Date of Service September 17, 2019 Subjective doing much better pain gone no visual changes no headaches Physical Exam Constitutional: WD/WN, vitals as above comfortable No edema neg Rika's for discharge today follow up in 1 week in our office follow up next week with Dr. Hartmann Results & Data Vital Signs (Past 12 Hours) Vital Signs Temp Pulse Resp BP Pulse Ox 09/17/19 07:20 36.8 C 105 H 18 147/91 H 97 09/17/19 03:30 36.8 C 84 18 150/95 H 96 Laboratory Results 09/15/19 09/15/19 09/15/19 01:50 01:50 02:10 WBC 17.62 H RBC 3.36 L Hgb 10.0 L POC Hgb Hct 30.2 L POC Hct MCV 89.9 MCH 29.8 MCHC 33.1 RDW Std Deviation 47.9 H RDW Coeff of Camilla 14.7 H Plt Count 84 L MPV 12.5 H Immature Gran % (Auto) 3.5 Neut % (Auto) 79.2 Lymph % (Auto) 7.8 Dickson % (Auto) 7.1 Eos % (Auto) 2.2 Baso % (Auto) 0.2 Immature Gran # (Auto) 0.61 H Neut # (Auto) 13.97 H Lymph # (Auto) 1.37 Dickson # (Auto) 1.25 H Eos # (Auto) 0.39 Baso # (Auto) 0.03 Platelet Estimate Hypochromasia POC Sodium Sodium POC Potassium Potassium POC Chloride Chloride Carbon Dioxide POC Total CO2 Anion Gap POC Anion Gap POC BUN BUN Creatinine POC Creatinine Est Cr Clr Drug Dosing Est GFR ( Amer) Est GFR (Non-Af Amer) BUN/Creatinine Ratio Glucose POC Glucose (other) Calcium POC Ioniz Calcium Dejon Magnesium Magnesium (Sulf Ther) Total Bilirubin Direct Bilirubin AST ALT Alkaline Phosphatase Lactate Dehydrogenase Total Protein Albumin Globulin Albumin/Globulin Ratio Lipase HCG, Qual Urine Color [place] Urine Appearance Turbid A Urine pH 5.0 Ur Specific [place] 1.019 Urine Protein 3+ H Urine Glucose (UA) Negative Urine Ketones Negative Urine Blood 3+ H Urine Nitrite Negative Urine Bilirubin Negative Urine Urobilinogen Negative Ur Leukocyte Esterase 1+ H Urine WBC (Auto) 1-5 Urine RBC (Auto) >30 H U Hyaline Cast (Auto) 0 U Epithel Cells (Auto) 0-5 Urine Bacteria (Auto) Negative Urine Creatinine 2 Urine Test Cancelled Urine Opiates Screen Ur Opiates Confirm Ur Oxycodone Screen Ur Methadone, Qual Ur Methadone Urine Barbiturates Ur Barbiturate Confirm Ur Phencyclidine Scrn Ur Phencyclidine (PCP) Urine PCP Confirm Ur Amphetamines Screen U Amphetamines Confirm U Amphetamin/Meth Scrn MDMA (Ecstasy) Screen U Benzodiazepines Scrn U Benzodiazepine Confm Urine Cocaine Ur Cocaine Metabolite U Cocaine Metab Confirm U Marijuana (THC) Screen U Marijuana (THC) Confirm U THC/Creatinine Ratio Ur Drug Screen Comment 09/15/19 09/15/19 09/15/19 02:10 02:10 02:58 WBC RBC Hgb POC Hgb 9.9 L Hct POC Hct 29 L MCV MCH MCHC RDW Std Deviation RDW Coeff of Camilla Plt Count MPV Immature Gran % (Auto) Neut % (Auto) Lymph % (Auto) Dickson % (Auto) Eos % (Auto) Baso % (Auto) Immature Gran # (Auto) Neut # (Auto) Lymph # (Auto) Dickson # (Auto) Eos # (Auto) Baso # (Auto) Platelet Estimate Hypochromasia POC Sodium 135 Sodium 136 POC Potassium 4.2 Potassium 4.1 POC Chloride 103 Chloride 102 Carbon Dioxide 24 POC Total CO2 23 L Anion Gap 10.0 POC Anion Gap 14.0 L POC BUN 28 H BUN 29 H Creatinine 2.17 H POC Creatinine 2.3 H Est Cr Clr Drug Dosing Not Reportable Est GFR ( Amer) 34.1 Est GFR (Non-Af Amer) 29.4 BUN/Creatinine Ratio 13.2 Glucose 107 H POC Glucose (other) 108 H Calcium 9.6 POC Ioniz Calcium Dejon 1.18 Magnesium Magnesium (Sulf Ther) Total Bilirubin 0.6 Direct Bilirubin 0.1 AST 37 ALT 120 H Alkaline Phosphatase 126 H Lactate Dehydrogenase Total Protein 7.8 Albumin 3.5 Globulin Albumin/Globulin Ratio Lipase 119 HCG, Qual Positive Urine Color Urine Appearance Urine pH Ur Specific [place] Urine Protein Urine Glucose (UA) Urine Ketones Urine Blood Urine Nitrite Urine Bilirubin Urine Urobilinogen Ur Leukocyte Esterase Urine WBC (Auto) Urine RBC (Auto) U Hyaline Cast (Auto) U Epithel Cells (Auto) Urine Bacteria (Auto) Urine Creatinine 2 Urine Test Urine Opiates Screen Ur Opiates Confirm Ur Oxycodone Screen Ur Methadone, Qual Ur Methadone Urine Barbiturates Ur Barbiturate Confirm Ur Phencyclidine Scrn Ur Phencyclidine (PCP) Urine PCP Confirm Ur Amphetamines Screen U Amphetamines Confirm U Amphetamin/Meth Scrn MDMA (Ecstasy) Screen U Benzodiazepines Scrn U Benzodiazepine Confm Urine Cocaine Ur Cocaine Metabolite U Cocaine Metab Confirm U Marijuana (THC) Screen U Marijuana (THC) Confirm U THC/Creatinine Ratio Ur Drug Screen Comment 09/15/19 09/15/19 09/15/19 11:27 11:27 11:27 WBC 13.88 H RBC 3.12 L Hgb 9.3 L POC Hgb Hct 28.1 L POC Hct MCV 90.1 MCH 29.8 MCHC 33.1 RDW Std Deviation 48.8 H RDW Coeff of Camilla 14.9 H Plt Count 74 L MPV 11.9 H Immature Gran % (Auto) 2.7 Neut % (Auto) 76.5 Lymph % (Auto) 7.8 Dickson % (Auto) 10.4 Eos % (Auto) 2.4 Baso % (Auto) 0.2 Immature Gran # (Auto) 0.37 H Neut # (Auto) 10.61 H Lymph # (Auto) 1.08 L Dickson # (Auto) 1.45 H Eos # (Auto) 0.34 Baso # (Auto) 0.03 Platelet Estimate Decreased L Hypochromasia POC Sodium Sodium 139 POC Potassium Potassium 4.1 POC Chloride Chloride 106 Carbon Dioxide 25 POC Total CO2 Anion Gap 8.0 POC Anion Gap POC BUN BUN 29 H Creatinine 2.30 H POC Creatinine Est Cr Clr Drug Dosing Not Reportable Est GFR ( Amer) 31.8 Est GFR (Non-Af Amer) 27.4 BUN/Creatinine Ratio 12.8 Glucose 94 POC Glucose (other) Calcium 8.4 L POC Ioniz Calcium Dejon Magnesium Magnesium (Sulf Ther) Total Bilirubin 0.4 Direct Bilirubin AST 29 ALT 91 H Alkaline Phosphatase 108 Lactate Dehydrogenase 258 H Total Protein 6.8 Albumin 2.8 L Globulin 4.0 Albumin/Globulin Ratio 0.7 L Lipase HCG, Qual Urine Color Urine Appearance Urine pH Ur Specific [place] Urine Protein Urine Glucose (UA) Urine Ketones Urine Blood Urine Nitrite Urine Bilirubin Urine Urobilinogen Ur Leukocyte Esterase Urine WBC (Auto) Urine RBC (Auto) U Hyaline Cast (Auto) U Epithel Cells (Auto) Urine Bacteria (Auto) Urine Creatinine 2 Urine Test Urine Opiates Screen Ur Opiates Confirm Ur Oxycodone Screen Ur Methadone, Qual Ur Methadone Urine Barbiturates Ur Barbiturate Confirm Ur Phencyclidine Scrn Ur Phencyclidine (PCP) Urine PCP Confirm Ur Amphetamines Screen U Amphetamines Confirm U Amphetamin/Meth Scrn MDMA (Ecstasy) Screen U Benzodiazepines Scrn U Benzodiazepine Confm Urine Cocaine Ur Cocaine Metabolite U Cocaine Metab Confirm U Marijuana (THC) Screen U Marijuana (THC) Confirm U THC/Creatinine Ratio Ur Drug Screen Comment 09/15/19 09/15/19 09/15/19 15:21 15:21 15:21 WBC 14.41 H RBC 2.97 L Hgb 8.8 L POC Hgb Hct 26.4 L POC Hct MCV 88.9 MCH 29.6 MCHC 33.3 RDW Std Deviation 48.6 H RDW Coeff of Camilla 14.8 H Plt Count 75 L MPV 11.6 H Immature Gran % (Auto) 3.1 Neut % (Auto) 74.5 Lymph % (Auto) 9.9 Dickson % (Auto) 9.4 Eos % (Auto) 2.9 Baso % (Auto) 0.2 Immature Gran # (Auto) 0.45 H Neut # (Auto) 10.73 H Lymph # (Auto) 1.43 Dickson # (Auto) 1.35 H Eos # (Auto) 0.42 Baso # (Auto) 0.03 Platelet Estimate Hypochromasia Present POC Sodium Sodium 138 POC Potassium Potassium 4.3 POC Chloride Chloride 105 Carbon Dioxide 22 POC Total CO2 Anion Gap 11.0 POC Anion Gap POC BUN BUN 29 H Creatinine 2.14 H POC Creatinine Est Cr Clr Drug Dosing Not Reportable Est GFR ( Amer) 34.7 Est GFR (Non-Af Amer) 29.9 BUN/Creatinine Ratio 13.7 Glucose 98 POC Glucose (other) Calcium 8.8 POC Ioniz Calcium Dejon Magnesium Magnesium (Sulf Ther) 6.1 Total Bilirubin 0.3 Direct Bilirubin AST 28 ALT 81 H Alkaline Phosphatase 97 Lactate Dehydrogenase 235 Total Protein 6.2 L Albumin 2.5 L Globulin 3.7 Albumin/Globulin Ratio 0.7 L Lipase HCG, Qual Urine Color Urine Appearance Urine pH Ur Specific [place] Urine Protein Urine Glucose (UA) Urine Ketones Urine Blood Urine Nitrite Urine Bilirubin Urine Urobilinogen Ur Leukocyte Esterase Urine WBC (Auto) Urine RBC (Auto) U Hyaline Cast (Auto) U Epithel Cells (Auto) Urine Bacteria (Auto) Urine Creatinine 2 Urine Test Urine Opiates Screen Ur Opiates Confirm Ur Oxycodone Screen Ur Methadone, Qual Ur Methadone Urine Barbiturates Ur Barbiturate Confirm Ur Phencyclidine Scrn Ur Phencyclidine (PCP) Urine PCP Confirm Ur Amphetamines Screen U Amphetamines Confirm U Amphetamin/Meth Scrn MDMA (Ecstasy) Screen U Benzodiazepines Scrn U Benzodiazepine Confm Urine Cocaine Ur Cocaine Metabolite U Cocaine Metab Confirm U Marijuana (THC) Screen U Marijuana (THC) Confirm U THC/Creatinine Ratio Ur Drug Screen Comment 09/15/19 09/15/19 09/15/19 17:35 17:35 20:32 WBC RBC Hgb POC Hgb Hct POC Hct MCV MCH MCHC RDW Std Deviation RDW Coeff of Camilla Plt Count MPV Immature Gran % (Auto) Neut % (Auto) Lymph % (Auto) Dickson % (Auto) Eos % (Auto) Baso % (Auto) Immature Gran # (Auto) Neut # (Auto) Lymph # (Auto) Dickson # (Auto) Eos # (Auto) Baso # (Auto) Platelet Estimate Hypochromasia POC Sodium Sodium 138 POC Potassium Potassium 4.5 POC Chloride Chloride 105 Carbon Dioxide 23 POC Total CO2 Anion Gap 10.0 POC Anion Gap POC BUN BUN 29 H Creatinine 2.21 H POC Creatinine Est Cr Clr Drug Dosing Not Reportable Est GFR ( Amer) 33.3 Est GFR (Non-Af Amer) 28.8 BUN/Creatinine Ratio 13.3 Glucose 96 POC Glucose (other) Calcium 9.2 POC Ioniz Calcium Dejon Magnesium 8.8 H* Magnesium (Sulf Ther) Total Bilirubin 0.3 Direct Bilirubin AST 25 ALT 77 Alkaline Phosphatase 100 Lactate Dehydrogenase Total Protein 6.2 L Albumin 2.5 L Globulin 3.7 Albumin/Globulin Ratio 0.7 L Lipase HCG, Qual Urine Color Urine Appearance Urine pH Ur Specific [place] Urine Protein Urine Glucose (UA) Urine Ketones Urine Blood Urine Nitrite Urine Bilirubin Urine Urobilinogen Ur Leukocyte Esterase Urine WBC (Auto) Urine RBC (Auto) U Hyaline Cast (Auto) U Epithel Cells (Auto) Urine Bacteria (Auto) Urine Creatinine 2 Cancelled Urine Test Urine Opiates Screen Cancelled Pos H Ur Opiates Confirm Cancelled Ur Oxycodone Screen Cancelled Ur Methadone, Qual Cancelled Neg Ur Methadone Cancelled Urine Barbiturates Cancelled Neg Ur Barbiturate Confirm Cancelled Ur Phencyclidine Scrn Cancelled Ur Phencyclidine (PCP) Neg Urine PCP Confirm Cancelled Ur Amphetamines Screen Cancelled U Amphetamines Confirm Cancelled U Amphetamin/Meth Scrn Neg MDMA (Ecstasy) Screen Pos H U Benzodiazepines Scrn Cancelled Neg U Benzodiazepine Confm Cancelled Urine Cocaine Cancelled Ur Cocaine Metabolite Neg U Cocaine Metab Confirm Cancelled U Marijuana (THC) Screen Cancelled Neg U Marijuana (THC) Confirm Cancelled U THC/Creatinine Ratio Cancelled Ur Drug Screen Comment Cancelled 09/15/19 09/15/19 09/16/19 20:32 20:32 05:32 WBC 14.17 H 13.32 H RBC 2.96 L 2.98 L Hgb 8.9 L 8.8 L POC Hgb Hct 26.5 L 26.7 L POC Hct MCV 89.5 89.6 MCH 30.1 29.5 MCHC 33.6 33.0 RDW Std Deviation 48.8 H 47.3 H RDW Coeff of Camilla 14.7 H 14.5 Plt Count 75 L 101 L MPV 11.2 H 11.7 H Immature Gran % (Auto) 3.6 2.9 Neut % (Auto) 73.5 74.4 Lymph % (Auto) 11.6 10.8 Dickson % (Auto) 8.0 8.7 Eos % (Auto) 2.9 3.0 Baso % (Auto) 0.4 0.2 Immature Gran # (Auto) 0.51 H 0.38 H Neut # (Auto) 10.42 H 9.91 H Lymph # (Auto) 1.65 1.44 Dickson # (Auto) 1.13 H 1.16 H Eos # (Auto) 0.41 0.40 Baso # (Auto) 0.05 0.03 Platelet Estimate Hypochromasia POC Sodium Sodium POC Potassium Potassium POC Chloride Chloride Carbon Dioxide POC Total CO2 Anion Gap POC Anion Gap POC BUN BUN Creatinine POC Creatinine Est Cr Clr Drug Dosing Est GFR ( Amer) Est GFR (Non-Af Amer) BUN/Creatinine Ratio Glucose POC Glucose (other) Calcium POC Ioniz Calcium Dejon Magnesium Magnesium (Sulf Ther) Total Bilirubin Direct Bilirubin AST ALT Alkaline Phosphatase Lactate Dehydrogenase 220 Total Protein Albumin Globulin Albumin/Globulin Ratio Lipase HCG, Qual Urine Color Urine Appearance Urine pH Ur Specific [place] Urine Protein Urine Glucose (UA) Urine Ketones Urine Blood Urine Nitrite Urine Bilirubin Urine Urobilinogen Ur Leukocyte Esterase Urine WBC (Auto) Urine RBC (Auto) U Hyaline Cast (Auto) U Epithel Cells (Auto) Urine Bacteria (Auto) Urine Creatinine 2 Urine Test Urine Opiates Screen Ur Opiates Confirm Ur Oxycodone Screen Ur Methadone, Qual Ur Methadone Urine Barbiturates Ur Barbiturate Confirm Ur Phencyclidine Scrn Ur Phencyclidine (PCP) Urine PCP Confirm Ur Amphetamines Screen U Amphetamines Confirm U Amphetamin/Meth Scrn MDMA (Ecstasy) Screen U Benzodiazepines Scrn U Benzodiazepine Confm Urine Cocaine Ur Cocaine Metabolite U Cocaine Metab Confirm U Marijuana (THC) Screen U Marijuana (THC) Confirm U THC/Creatinine Ratio Ur Drug Screen Comment 09/16/19 09/16/19 09/16/19 05:32 05:32 11:49 WBC RBC Hgb POC Hgb Hct POC Hct MCV MCH MCHC RDW Std Deviation RDW Coeff of Camilla Plt Count MPV Immature Gran % (Auto) Neut % (Auto) Lymph % (Auto) Dickson % (Auto) Eos % (Auto) Baso % (Auto) Immature Gran # (Auto) Neut # (Auto) Lymph # (Auto) Dickson # (Auto) Eos # (Auto) Baso # (Auto) Platelet Estimate Hypochromasia POC Sodium Sodium 138 138 POC Potassium Potassium 4.4 4.5 POC Chloride Chloride 105 105 Carbon Dioxide 23 24 POC Total CO2 Anion Gap 10.0 9.0 POC Anion Gap POC BUN BUN 32 H 31 H Creatinine 2.24 H 2.29 H POC Creatinine Est Cr Clr Drug Dosing Not Reportable Not Reportable Est GFR ( Amer) 32.8 31.9 Est GFR (Non-Af Amer) 28.3 27.5 BUN/Creatinine Ratio 14.2 13.7 Glucose 91 97 POC Glucose (other) Calcium 9.1 9.1 POC Ioniz Calcium Dejon Magnesium Magnesium (Sulf Ther) 8.8 H* 7.5 Total Bilirubin 0.4 0.3 Direct Bilirubin AST 21 20 ALT 71 63 Alkaline Phosphatase 101 107 Lactate Dehydrogenase 226 Total Protein 6.4 6.4 Albumin 2.5 L 2.5 L Globulin 3.9 3.9 Albumin/Globulin Ratio 0.6 L 0.6 L Lipase HCG, Qual Urine Color Urine Appearance Urine pH Ur Specific [place] Urine Protein Urine Glucose (UA) Urine Ketones Urine Blood Urine Nitrite Urine Bilirubin Urine Urobilinogen Ur Leukocyte Esterase Urine WBC (Auto) Urine RBC (Auto) U Hyaline Cast (Auto) U Epithel Cells (Auto) Urine Bacteria (Auto) Urine Creatinine 2 Urine Test Urine Opiates Screen Ur Opiates Confirm Ur Oxycodone Screen Ur Methadone, Qual Ur Methadone Urine Barbiturates Ur Barbiturate Confirm Ur Phencyclidine Scrn Ur Phencyclidine (PCP) Urine PCP Confirm Ur Amphetamines Screen U Amphetamines Confirm U Amphetamin/Meth Scrn MDMA (Ecstasy) Screen U Benzodiazepines Scrn U Benzodiazepine Confm Urine Cocaine Ur Cocaine Metabolite U Cocaine Metab Confirm U Marijuana (THC) Screen U Marijuana (THC) Confirm U THC/Creatinine Ratio Ur Drug Screen Comment 09/16/19 09/16/19 11:49 11:49 WBC 13.16 H RBC 2.91 L Hgb 8.8 L POC Hgb Hct 26.1 L POC Hct MCV 89.7 MCH 30.2 MCHC 33.7 RDW Std Deviation 47.5 H RDW Coeff of Camilla 14.4 Plt Count 113 L MPV 11.8 H Immature Gran % (Auto) 2.1 Neut % (Auto) 77.8 Lymph % (Auto) 10.0 Dickson % (Auto) 7.2 Eos % (Auto) 2.7 Baso % (Auto) 0.2 Immature Gran # (Auto) 0.28 H Neut # (Auto) 10.22 H Lymph # (Auto) 1.32 Dickson # (Auto) 0.95 H Eos # (Auto) 0.36 Baso # (Auto) 0.03 Platelet Estimate Hypochromasia POC Sodium Sodium POC Potassium Potassium POC Chloride Chloride Carbon Dioxide POC Total CO2 Anion Gap POC Anion Gap POC BUN BUN Creatinine POC Creatinine Est Cr Clr Drug Dosing Est GFR ( Amer) Est GFR (Non-Af Amer) BUN/Creatinine Ratio Glucose POC Glucose (other) Calcium POC Ioniz Calcium Dejon Magnesium Magnesium (Sulf Ther) Total Bilirubin Direct Bilirubin AST ALT Alkaline Phosphatase Lactate Dehydrogenase 237 Total Protein Albumin Globulin Albumin/Globulin Ratio Lipase HCG, Qual Urine Color Urine Appearance Urine pH Ur Specific [place] Urine Protein Urine Glucose (UA) Urine Ketones Urine Blood Urine Nitrite Urine Bilirubin Urine Urobilinogen Ur Leukocyte Esterase Urine WBC (Auto) Urine RBC (Auto) U Hyaline Cast (Auto) U Epithel Cells (Auto) Urine Bacteria (Auto) Urine Creatinine 2 Urine Test Urine Opiates Screen Ur Opiates Confirm Ur Oxycodone Screen Ur Methadone, Qual Ur Methadone Urine Barbiturates Ur Barbiturate Confirm Ur Phencyclidine Scrn Ur Phencyclidine (PCP) Urine PCP Confirm Ur Amphetamines Screen U Amphetamines Confirm U Amphetamin/Meth Scrn MDMA (Ecstasy) Screen U Benzodiazepines Scrn U Benzodiazepine Confm Urine Cocaine Ur Cocaine Metabolite U Cocaine Metab Confirm U Marijuana (THC) Screen U Marijuana (THC) Confirm U THC/Creatinine Ratio Ur Drug Screen Comment
[2019-09-17 16:55] LABS: Anti Nuclear Antibody Screen NEGATIVE (NEGATIVE); Complement C3 145 MG/DL (83-193)
--- NOTE | 2019-09-17 17:41 | Nephrology Progress Note ---
Date of Service September 17, 2019 Assessment & Plan (1) CKD (chronic kidney disease) stage 3, GFR 30-59 ml/min: unknown what her baseline creatinine is b/c no values drawn while not pregant; suspect it will be higher than mid 1's; creatinine of low 2's may be normal for her when not (in epic); time will tell> this would translate to advanced CKD 3 or early ckd 4; urine studies will be unreliable in this post period in terms of assessing proteinuria, hematuria; note that her urine sediment as inpt is identical to that from before delivery. she did not have gross hematuria but more vaginal bleeding from description she gives -daily bmp while in house -no nsaids (unless ordered by hematology) >> I emphasized w/ pt -note that plts are at or better than her baseline; anemia stable as of this am, LDH and LFTs remain wnl; renal function is stable if trended w/in [employer] (creat reads higher here than in EPIC); albumin generally stable but quite low (may be evidence of significant baseline proteinuria if persists) -f/u complement and elisabeth >> all negative -she will absolutely need renal bx at some point but prefer to wait until about 6-8 wks after provided she is stable -she already had f/u w/ me scheduled in clinic next week; should keep it; should also get labs next saturday - order already in (2) Chronic hypertension affecting : controlled > continue labetalol current dose (3) Antiphospholipid antibody syndrome complicating : on lovenox per routine during and for 6 wks post ; cont same (4) Acute anemia: -to some degree expected per my understanding after vaginal delivery -cont PNV -daily CBC, cmp while in house to monitor plts, liver>> they are all satisfactory today (5) Tobacco use disorder: again emph'd w/ pt that one of the few things she can change to improve her kidney prognosis is to stop tobacco completely Subjective pt seen on rounds this am 0815; off of all gtt now. feels much better > no focal numnbess/weakness; back/flank pain resolved; no dysuria; no gross hematuria; no n/v; no QUIROGA or vision changes acutely Review of Systems Review of Systems: All systems reviewed & are unremarkable except as noted in HPI & below Physical Exam Constitutional: well developed, well nourished and cooperative; no acute distress (on RA sitting in her bed) Eyes: + anicteric sclerae and EOM intact bilaterally ENMT: Ears: no external ear abnormality Nose: no external nose abnormality Mouth: + dry oral mucous membranes Neck: no nuchal rigidity Respiratory: normal respiratory effort Auscultation: lungs clear to auscultation bilaterally and + diminished lung sounds Cardiovascular: RRR, no murmur, no edema Gastrointestinal (Abdomen): Inspection/Auscultation: normal bowel sounds Percussion/Palpation: abdomen soft; abdomen nontender Musculoskeletal: Extremities: strength 5/5 throughout Skin: + rash (BL cheeks ? malar); no lesions and no ulcers Psychiatric: A+Ox3, euthymic affect Orientation: alert and oriented x 3 Eye Contact: good eye contact Speech: normal rate/rhythm/volume of speech Results & Data Vital Signs (Past 12 Hours) Vital Signs Temp Pulse Pulse Resp BP Pulse Ox 09/17/19 13:02 36.8 C 104 H 105 H 18 147/91 H 97 09/17/19 07:20 36.8 C 105 H 18 147/91 H 97 Laboratory Results 09/16/19 11:49 09/16/19 11:49
[2019-09-18 01:28] LABS: Codeine Urine NEGATIVE NG/ML (CUTOFF=50); Hydrocodone Urine NEGATIVE NG/ML (CUTOFF=50); Hydromor Urine 290 NG/ML (CUTOFF=50); Morphine Urine NEGATIVE NG/ML (CUTOFF=50); Norhydrocodone Conf Ur NEGATIVE NG/ML (CUTOFF=50); Noroxycodone Urine 90 NG/ML (CUTOFF=50); Oxycodone Urine NEGATIVE NG/ML (CUTOFF=50); Oxymorph Urine NEGATIVE NG/ML (CUTOFF=50)
--- NOTE | 2019-09-24 09:57 | Discharge Summary ---
REASON FOR ADMISSION AND HOSPITAL COURSE: The patient is a 33-year-old female, EDC is 09/27/2019. She presents to the hospital with worsening hypertension. She was induced, had a spontaneous delivery. She was placed on IV magnesium and given labetalol several times for rebound hypertension. She has a history of antiphospholipid syndrome for which she was on Lovenox, chronic hypertension for which she was on labetalol, class 1 obesity and history of chronic renal disease which has not been followed very thoroughly. The patient was seen and readmitted and placed on IV magnesium. Renal consult was obtained. The patient's blood pressure was tweaked. She was stabilized and at the end of her course here, she was discharged home with a diagnosis of chronic kidney disease, chronic hypertension, antiphospholipid syndrome and acute anemia. She was given medications for discharge to be continued and she will be seen in 1 week in the office by Dr. Hartmann and also by OB. CONDITION ON DISCHARGE: Stable. Regular diet on discharge.
== END 2019-09-17 13:27 | disposition home or self-care (01) | DRG 683 ==
LOC: ED 01:39 → 4S1 10:45 → 4S2 09-16 17:50

== ENCOUNTER 2019-09-19 11:38 | Observation (INO) ==
[2019-09-19 12:11] LABS: Basophils # (auto) 0.05 K/uL (0-0.2); Basophils % (auto) 0.4 %; Eosinophils # (auto) 0.29 K/uL (0-0.5); Eosinophils % (auto) 2.2 %; Hematocrit (blood only) 30.1 % (37-47); Hemoglobin 10.1 g/dL (12.0-16.0); Immature Granulocytes # (auto) 0.27 K/uL (0.00-0.02); Immature Granulocytes % (auto) 2.1 %; Lymphocytes # (auto) 1.34 K/uL (1.2-3.4); Lymphocytes % (auto) 10.4 %; Mean Corpuscular Hemoglobin 29.5 pg (25-34); Mean Corpuscular Hgb Conc 33.6 g/dL (32-36); Mean Platelet Volume 10.9 fL (7.4-10.4); Monocytes # (auto) 0.57 K/uL (0.11-0.59); Monocytes % (auto) 4.4 %; Neutrophils # (auto) 10.38 K/uL (1.4-6.5); Neutrophils % (auto) 80.5 %; Platelet Count 140 K/uL (130-400); RDW Coefficient of Variation 14.2 % (11.5-14.5); RDW Standard Deviation 45.9 fL (36.4-46.3); Red Blood Count 3.42 M/uL (4.2-5.4)
[2019-09-19] MEDS ORDERED: ONDANSETRON INJ 2 MG/ML 2 ML VIAL IV STA (12:19)
[2019-09-19 12:29] LABS: Albumin Level 3.5 gm/dl (3.4-5.0); BUN Creatinine Ratio 14.8 (10-20); Calcium 9.8 mg/dl (8.5-10.1); Creatinine Clr Calc Pharmacy 42.9 ml/min; Est GFR (African American) 37.8; Est GFR (Non-African American) 32.6; Potassium 4.2 mmol/L (3.5-5.1)
[2019-09-19] MEDS ORDERED: SODIUM CHLORIDE 0.9% 1000ML 1,000 ML IV SCH (12:30)
[2019-09-19 12:32] LABS: Albumin Globulin Ratio 0.8 (0.9-2); Bilirubin,Total 0.4 mg/dl (0.2-1); Globulin 4.4 gm/dl (2.5-4.0); Total Protein 7.9 gm/dl (6.4-8.2)
[2019-09-19] MEDS: HYDROmorphone INJ 0.5 MG/0.5 ML SYR IV PRN ×3 (12:48→16:10)
[2019-09-19] MEDS ORDERED: LABETALOL HCL 200 MG TAB PO STA (13:57)
--- NOTE | 2019-09-19 13:59 | Ultrasound Report ---
ABDOMINAL ULTRASOUND, RIGHT UPPER QUADRANT HISTORY: upper abd pain. COMPARISON: Abdomen and pelvis CT 09/15/2019. FINDINGS: Pancreas: The pancreas demonstrates a normal echotexture. Liver: Unremarkable. Gallbladder: Completely contracted and therefore not well visualized. There appears to be diffuse gal lbladder wall thickening measuring up to 4 mm. There is a punctate stone within the gallbladder. The technologist reported a positive sonographic German sign. Therefore, these findings are concerning fo r acute cholecystitis. CBD: 5 mm in thickness. There may be mild thickening of the proximal common bile duct. Right kidney: Mild hydronephrosis, unchanged. IMPRESSION: 1. There is diffuse gallbladder wall thickening measuring up to 4 mm. There is a punctate stone withi n the gallbladder. The technologist reported a positive sonographic German sign. Therefore, these fin dings are concerning for acute cholecystitis. 2. There may also be mild thickening of the proximal common bile duct which could represent extension of the suspected infection. Electronically signed by: Everette Estrada M.D. 09/19/2019 1:58 PM
[2019-09-19] MEDS ORDERED: cefOXitin 2,000 MG/60 ML BAG IV STA (14:18)
--- NOTE | 2019-09-19 15:08 | History & Physical Report ---
Date of Service September 19, 2019 Assessment & Plan (1) Acute cholecystitis: 33 yr old woman with clinical evidence of acute cholecystitis in the setting of recent vaginal delivery [address] and [address] scan show stone in gallbladder with pericholecystic edema/ wall thickening. Discussed laparoscopic cholecystectomy with risks of bleeding, infection, conversion to open, postop bile leak or retained cbd stone needing ercp, diarrhea, intolerance to foods. Expected overnight hospital stay and 2 wk recovery period discussed. Consent signed. For OR today. Present on Admission?: Yes (2) Chronic hypertension affecting : on labetolol. likely exacerbated by current pain levels - should hopefully improve following gallbladder removal. Present on Admission?: Yes History of Present Illness Chief Complaint: abdominal pain Primary Care Provider: Nataly Gaitan, 33 yr old woman 2 weeks from induced vaginal delivery of baby boy (induced for pre-eclampsia) presents with acute onset of sharp, stabbing right upper quadrant pain radiating to back since this morning. Was able to eat yesterday but pain started overnight. Has only been able to keep down 1 orange today (at 10). Worse with breathing, movement. Never had similar symptoms but was just admitted overnight for 1 day from 09/16-09/17 for lower abdominal pain. No relation to fatty foods that she is aware of but she did have spaghetti casserole for dinner and steak salad for lunch. No fevers/ chills. No prior abdominal operations. On lovenox injections for antiphospholipid antibody syndrome - last dose was yesterday lópez. Allergies Allergy/AdvReac Type Severity Reaction Status Date / Time guaifenesin Allergy Unknown HIVES FROM Verified 09/19/19 12:54 MUCINEX Home Medications Home Medications Medication Instructions Recorded Confirmed Type enoxaparin 40 mg SUBCUT DAILY@2200 #40 syr 09/12/19 09/19/19 Rx labetalol 200 mg PO TID #90 tab 09/12/19 09/19/19 Rx oxycodone 5 mg PO Q8H PRN #10 tab 09/12/19 09/19/19 Rx Vitamin 1 tab PO DAILY 09/15/19 09/19/19 History cholecalciferol (vitamin D3) 0 unit PO DAILY 09/15/19 09/19/19 History [Vitamin D3] cyanocobalamin (vitamin B-12) 100 mcg PO DAILY 09/15/19 09/19/19 History [Vitamin B-12] ferrous fumarate-vitamin C 1 tab PO QAM #30 tab 09/17/19 09/19/19 Rx [Cheryl-Sequels (iron-vit c)] Past Med/Surg History Medical History Acute anemia Antiphospholipid antibody syndrome Currently taking Lovenox until 36 weeks then will take Heparin, then will have Lovenox 6 weeks Anxiety no meds CKD (chronic kidney disease) stage 3, GFR 30-59 ml/min Depression no meds History of ovarian cyst Hypertension Labetalol 200mg PO BID Iron deficiency takes supplements Thrombocytopenia no meds taken - follows [facility] studder UTI (urinary tract infection) Surgical History H/O dilation and curettage Family History Grandfather (Paternal) Colorectal cancer Father Diabetes Social History Preferred Language: [place] Communication Ability: Effective Beliefs That Will Affect Care: None marital status: Current Living Situation: Spouse Current Living Situation Comment: lives with and 10 yo son Feels Safe at Home: Yes Smoking Status: Current every day smoker Tobacco Type: cigarettes ; Cigarettes Per Day: 1 ; Second Hand Exposure: Yes ; Hx Alcohol Use: Yes (not during ) Alcohol type: beer, wine and hard liquor Hx Substance Use: No Review of Systems Review of Systems: All systems reviewed & are unremarkable except as noted in HPI & below Physical Exam Constitutional: well developed, well nourished and + acute distress (in pain) Eyes: + anicteric sclerae Neck: normal visual inspection and trachea midline Respiratory: normal respiratory effort, lungs clear to auscultation Cardiovascular: RRR, no murmur, no edema Gastrointestinal (Abdomen): Inspection/Auscultation: abdomen normal to inspection and normal bowel sounds; abdomen not distended Perc ussion/Palpation: + abdomen tender (RUQ with zafar's sign), + guarding (RUQ) and abdomen soft; no hernia and no abdominal mass Neurologic: moves all extremities; no focal motor deficits Psychiatric: A+Ox3, euthymic affect Results & Data Vital Signs (Past 12 Hours) Vital Signs Temp Pulse Resp BP Pulse Ox 09/19/19 14:30 67 18 165/104 H 98 09/19/19 14:00 79 27 H 176/113 H 100 09/19/19 13:30 66 21 184/102 H 97 09/19/19 13:00 65 17 169/109 H 96 09/19/19 12:53 128 H 24 170/105 H 100 09/19/19 12:50 99 H 22 100 09/19/19 11:43 36.7 C 99 H 22 157/78 H [address] 12.9, LFT's are normal Diagnostic Findings RUQ U/S: FINDINGS: Pancreas: The pancreas demonstrates a normal echotexture. Liver: Unremarkable. Gallbladder: Completely contracted and therefore not well visualized. There appears to be diffuse gallbladder wall thickening measuring up to 4 mm. There is a punctate stone within the gallbladder. The technologist reported a positive sonographic Zafar sign. Therefore, these findings are concerning for acute cholecystitis. CBD: 5 mm in thickness. There may be mild thickening of the proximal common bile duct. Right kidney: Mild hydronephrosis, unchanged. IMPRESSION: 1. There is diffuse gallbladder wall thickening measuring up to 4 mm. There is a punctate stone within the gallbladder. The technologist reported a positive sonographic Zafar sign. Therefore, these findings are concerning for acute cholecystitis. 2. There may also be mild thickening of the proximal common bile duct which could represent extension of the suspected infection. CT scan abd/ pelvis 09/15: FINDINGS: Asymmetrically increased density of the lateral inferior right breast is partially imaged. Lung bases appear clear. No pneumatosis or pneumoperitoneum. Imaged inferior cardiac chambers appear unremarkable. Mild gallbladder distention with gallbladder wall thickening. There is a single punctate gallstone noted within the gallbladder fundus. Mild edema within the marianne hepatis. Prominent marianne hepatic lymph node, 7 mm. No choledocholithiasis or biliary ductal dilation identified. Spleen is mildly enlarged, 14.0 cm. Unremarkable liver. Pancreas and adrenal glands are unremarkable. Mild symmetric bilateral hydronephrosis with mild stranding within the right renal pelvis and surrounding the proximal right ureter. Additional stranding/edema of the pelvis surrounds the uterus, urinary bladder and distal ureters. Mild urinary bladder wall thickening. Enlarged post gravid appearance of the uterus with hemorrhagic debris within the endometrial canal. Nonspecific mildly enlarged periaortic and pericaval lymph nodes measure up to 1.0 cm in short axis. Additional mildly enlarged lymph nodes of the celiac axis and periportal distributions. 1.8 cm diverticulum of the gastric fundus. No bowel obstruction or bowel wall thickening. Normal appendix. Diastases recti wi th tiny fat filled periumbilical hernia. Foci of subcutaneous emphysema with adjacent nodularity involves the bilateral lateral abdominal wall distributions suggestive of injection sites. Bones appear intact. IMPRESSION: 1. Enlarged postgravid appearance of the uterus with hemorrhagic debris noted within the endometrial canal. 2. Mild gallbladder distention with wall thickening and a single punctate gallstone. Correlate clinically to exclude cholecystitis. 3. Nonspecific adenopathy of the abdomen and pelvis as above. 4. Mild symmetric bilateral hydronephrosis, likely physiologic related to recent 5. Normal appendix 6. Splenomegaly.
[2019-09-19] MEDS ORDERED: ONDANSETRON INJ 2 MG/ML 2 ML VIAL ONE ×2 (16:47→18:33)
[2019-09-19] MEDS ORDERED: DEXAMETHASONE SOD INJ 4 MG/ML VIAL ONE ×2 (16:47→16:56)
[2019-09-19] MEDS ORDERED: PROPOFOL IV EMULSION 10 MG/ML 20 ML VIAL IV ONE (16:47)
[2019-09-19] MEDS ORDERED: CISATRACURIUM BESYLATE IV SOLN 2 MG/ML 10 ML VIAL IV ONE (16:47)
[2019-09-19] MEDS ORDERED: MIDAZOLAM HCL 1 MG/ML 2ML VIAL ONE (16:47)
[2019-09-19] MEDS ORDERED: LIDOCAINE HCL 2% 2 ML VIAL/AMP(20MG/ML) INFIL ONE (16:47)
[2019-09-19] MEDS ORDERED: fentaNYL citrate 100 MCG/2 ML VIAL ONE ×2 (16:47→17:44)
[2019-09-19] MEDS ORDERED: ACETAMINOPHEN 1000 MG/100 ML IV IV ONE (17:06)
[2019-09-19] MEDS ORDERED: BUPIVACAINE 0.5 % 5 MG/1 ML MPF 30ML VIAL ONE (17:10)
[2019-09-19 17:17] LABS: Appearance Urine Cloudy (Clear); Bacteria Urine Automated Negative (Negative); Bilirubin Urine Negative (Negative); Blood Urine 3+ (Negative); Color Urine Yellow; Epithelial Cell Urine Auto 20-30 /lpf (0-5); Glucose Urine UA Negative (Negative); Ketones Urine Negative (Negative); Leukocyte Esterase Urine 1+ (Negative); Nitrite Urine Negative (Negative); Protein Urine 2+ (Negative); Specific Gravity Urine 1.025 (1.000-1.030); Urobilinogen Urine Negative (Negative)
--- NOTE | 2019-09-19 17:25 | Anesthesiology Consultation ---
Date of Service September 19, 2019 Assessment & Plan Chart Review Chart Review: Acceptable Risk for Surgery and Patient NOT seen in Pre Admission Testing Consults Requested none ASA [id number] Proposed Anesthesia Anesthesia Type: General Risk / Benefits Reviewed With: PT / POA / Parent / Guardian, Accepts Plan and Informed Consent Obtained History Surgery Operation Date: 09/19/19 16:00 Proposed Procedures p Laparoscopic Cholecystectomy - Deanna Dixon MD Height/Weight Height: 5 ft 4 in Weight: 84 kg Allergies Allergy/AdvReac Type Severity Reaction Status Date / Time guaifenesin Allergy Unknown HIVES FROM Verified 09/19/19 12:54 MUCINEX Medications Home Medications Medication Instructions Recorded Confirmed Last Taken enoxaparin 40 mg SUBCUT DAILY@2200 #40 syr 09/12/19 09/19/19 Unknown labetalol 200 mg PO TID #90 tab 09/12/19 09/19/19 Unknown oxycodone 5 mg PO Q8H PRN #10 tab 09/12/19 09/19/19 Unknown Vitamin 1 tab PO DAILY 09/15/19 09/19/19 Unknown cholecalciferol (vitamin D3) 0 unit PO DAILY 09/15/19 09/19/19 Unknown [Vitamin D3] cyanocobalamin (vitamin B-12) 100 mcg PO DAILY 09/15/19 09/19/19 Unknown [Vitamin B-12] ferrous fumarate-vitamin C 1 tab PO QAM #30 tab 09/17/19 09/19/19 Unknown [Cheryl-Sequels (iron-vit c)] Active Medications Generic Name Dose Route Start Last Admin Trade Name Freq PRN Reason Stop Dose Admin Hydromorphone HCl 0.5 mg 09/19/19 12:19 09/19/19 16:10 Dilaudid IV 10/03/19 12:18 0.5 mg Q15M PRN Administration Pain Sodium Chloride 1,000 mls @ 125 mls/hr 09/19/19 12:30 09/19/19 12:48 Nss 1000ml IV 10/19/19 12:29 125 mls/hr .Q8H LEIA Administration NPO Date Last Intake of Fluids: 09/19/19 Time Last Intake of Fluids: 14:15 Date Last Intake of Solids: 09/19/19 Time Last Intake of Solids: 10:30 Past Medical History Medical History Acute anemia Antiphospholipid antibody syndrome Currently taking Lovenox until 36 weeks then will take Heparin, then will have Lovenox 6 weeks Anxiety no meds CKD (chronic kidney disease) stage 3, GFR 30-59 ml/min Depression no meds History of ovarian cyst Hypertension Labetalol 200mg PO BID Iron deficiency takes supplements Thrombocytopenia no meds taken - follows skiver blockers UTI (urinary tract infection) Exercise / Class Metabolic Activity II 4-5 Yardwork/Stairs/Walk up hill Past Family History Family History Grandfather (Paternal) Colorectal cancer Father Diabetes Past Surgical History Surgical History H/O dilation and curettage Past Anesthesia History No Hx of Anesthesia Complications and No Family Hx of Anesthesia Complications History of PONV No Hx of PONV and No Hx of Motion Sickness Social History Smoking Status: Current every day smoker tobacco type: cigarettes Smoking cigarettes per day: 1 Hx Alcohol Use: Yes (not during ) Alcohol type: beer, wine and hard liquor alcohol intake frequency: holidays/special occasions only Hx Substance Use: No substance use type: does not use Physical Exam Vital Signs Last Vital Signs Temp 36.7 C 09/19/19 11:43 Pulse 67 09/19/19 17:15 Resp 14 09/19/19 17:15 BP 154/89 H 09/19/19 17:15 Pulse Ox 96 09/19/19 17:15 Constitutional + obese ENMT Mouth: no dentition abnormality Thyromental Distance: < 3.5 Finger Breadths Mallampati Class: II Neck normal visual inspection and trachea midline; neck extension not limited Respiratory normal respiratory effort Auscultation: lungs clear to auscultation bilaterally Cardiovascular Rate/Rhythm: regular rate and regular rhythm Heart Sounds: no murmur Vessels: no carotid bruit Musculoskeletal Spine: normal cervical ROM Neurologic moves all extremities Motor/Sensory: no sensory deficit Psychiatric Orientation: alert and oriented x 3 Testing Laboratory Results 09/19/19 12:01 09/19/19 12:01 Urine Color Yellow 09/19/19 17:05 Urine Appearance Cloudy (Clear) A 09/19/19 17:05 Urine pH 5.0 (4.5-7.5) 09/19/19 17:05 Ur Specific [place] 1.025 (1.000-1.030) 09/19/19 17:05 Urine Protein 2+ (Negative) H 09/19/19 17:05 Urine Glucose (UA) Negative (Negative) 09/19/19 17:05 Urine Ketones Negative (Negative) 09/19/19 17:05 Urine Nitrite Negative (Negative) 09/19/19 17:05 Ur Leukocyte Esterase 1+ (Negative) H 09/19/19 17:05 Urine WBC (Auto) 10-30 /hpf (0-5) H 09/19/19 17:05 Urine RBC (Auto) 10-30 /hpf (0-4) H 09/19/19 17:05 U Hyaline Cast (Auto) 1-5 /lpf (0-5) 09/19/19 17:05 U Epithel Cells (Auto) 20-30 /lpf (0-5) H 09/19/19 17:05 Urine Bacteria (Auto) Negative (Negative) 09/19/19 17:05 Electrocardiogram Date: 09/15/19 Findings: + NSR @ (at 91) Chest X-Ray Date: 09/15/19 Findings: + NAD
[2019-09-19] MEDS ORDERED: LARYING-O-JET KIT (LTA) ONE (18:03)
[2019-09-19] MEDS ORDERED: GLYCOPYRROLATE 0.2 MG/ML VIAL ONE (18:18)
[2019-09-19] MEDS ORDERED: NEOSTIGMINE METHYLSULFATE 5 MG/5 ML SYR ONE (18:18)
[2019-09-19] MEDS ORDERED: KETOROLAC 30 MG/ML VIAL ONE (18:34)
--- NOTE | 2019-09-19 18:49 | Operative Report ---
Post Operative Report Pre & Post Diagnosis Operation Date: 09/19/19 16:00 Pre-Op Diagnosis: UPPER ABDOMEN PAIN,RIGHT BACK PAIN AND SHOULDER PA Post-Op Diagnosis: Acute cholecystitis I identified the patient and participated in the time-out.: Yes Procedure Operation Date: 09/19/19 16:00 Actual Procedures p Laparoscopic Cholecystectomy - Deanna Dixon MD Surgeon Deanna Dixon MD Business Office Manager none Estimated Blood Loss 5 Findings See Below (very inflamed gallbladder) Specimens gallbladder and contents Description of Procedure see dictated operative report I attest to the content of the Intraoperative Record and any orders documented therein. Any exceptions are noted below.
[2019-09-19] MEDS ORDERED: LABETALOL HCL IV 5 MG/ML 20ML IV PRN (19:06)
[2019-09-19] MEDS ORDERED: FLUMAZENIL 0.1 MG/1 ML 10 ML VIAL IV PRN (19:06)
[2019-09-19] MEDS ORDERED: NALOXONE HCL 0.4 MG/1 ML VIAL/CARP IV PRN (19:06)
[2019-09-19] MEDS ORDERED: fentaNYL citrate 100 MCG/2 ML VIAL IV PRN (19:06)
[2019-09-19] MEDS ORDERED: ONDANSETRON INJ 2 MG/ML 2 ML VIAL IV PRN ×2 (19:06→19:51)
[2019-09-19] MEDS ORDERED: ATROPINE SULFATE 0.1 MG/ML 10ML SYR IV PRN (19:06)
[2019-09-19] MEDS ORDERED: PROMETHAZINE HCL 12.5 MG in SODIUM CHLORIDE 0.9% 50 ML IV PRN (19:06)
[2019-09-19] MEDS ORDERED: ePHEDrine sulfate 50 MG/ML AMP IV PRN (19:06)
[2019-09-19] MEDS ORDERED: LABETALOL HCL IV 5 MG/ML 20ML IV ONE (19:09)
[2019-09-19] MEDS ORDERED: MoRPHine SULFATE 2 MG/ML CARP IV PRN ×2 (19:51)
[2019-09-19] MEDS ORDERED: ACETAMINOPHEN 325 MG TAB PO PRN (19:51)
[2019-09-19] MEDS ORDERED: IBUPROFEN 200 MG TAB PO PRN (19:51)
[2019-09-19] MEDS ORDERED: KETOROLAC TROMETHAMINE 15 MG/ML VIAL IV PRN (19:51)
[2019-09-19] MEDS ORDERED: OXYCODONE HCL IR 5 MG TAB (IMMEDIATE RELEASE) PO PRN (19:51)
[2019-09-19] MEDS ORDERED: MoRPHine SULFATE 4 MG/ML 1 ML CARP\\VIAL IV PRN (19:51)
--- NOTE | 2019-09-19 20:16 | Emergency Department Note ---
Entered by Adrianne Gongora acting as a scribe for ED Provider Note CHIEF COMPLAINT: Abdominal Pain HISTORY OF PRESENT ILLNESS: The patient is a 33 year old female who presents to the Emergency Room with complaints of abdominal pain beginning yesterday. She recently delivered a baby. 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 She notes she was admitted by Labor and Delivery and was monitored for a day. She notes the next day, she developed back pain which she describes as a kink in her back. She states the next day, she developed abdominal pain which she rates as an 8/10 in severity. The patient notes that burping worsens her pain. She states she vomited around 0100 for the first time and since then, she has had 3 more episodes of vomiting yellow trav e. She notes that she called Labor and Delivery at 0900 this morning who prescribed her an anti-nausea medication and recommended she go to the ED if her symptoms persisted. Pt denies LOC, headache, fevers, chills, diaphoresis, visual changes, neck pain, chest pain, breathing difficulties, melena, hematochezia, urinary symptoms, numbness, weakness, lymphadenopathy, rash, abnormal vaginal discharge, or other complaints. REVIEW OF SYSTEMS: See HPI for pertinent positives and negatives. A total of ten systems were reviewed and were otherwise negative. PMHx/PSHx: High blood pressure CKD (stage 3) Pre-eclampsia due to pre-existing hypertension SOCIAL HISTORY: Patient lives at home. PHYSICAL EXAM: GENERAL: Awake, alert, very uncomfortable-appearing, in no distress HENT: Normocephalic, atraumatic. Oropharynx unremarkable. EYES: PERRL. Normal conjunctiva. Sclera non-icteric. NECK: Inspection normal. Non-tender. Supple. No nuchal rigidity. FROM. No masses . RESPIRATORY: Clear to auscultation. No wheezes. No rales. Normal respiratory effort. CARDIAC: Normal rate. Normal rhythm. No murmurs. No rubs. Extremities warm and well perfused. Pulses equal. No JVD. GI: Soft, non-distended. RUQ tenderness. No rebound or guarding. No masses. RECTAL: Deferred. MUSCULOSKELETAL: Atraumatic. Chest examination reveals no tenderness. The back is symmetrical on inspection without obvious abnormality. There is no CVA tenderness to palpation. No joint edema. LOWER EXTREMITIES: Calves are equal size bilaterally and non-tender. No edema. No discoloration. NEURO: Normal sensorium. No sensory or motor deficits noted. SKIN: No rash or jaundice noted. EMERGENCY DEPARTMENT COURSE: 1216: Past medical records reviewed. The patient was evaluated in room C6, and a complete history and physical examination were performed. 1355: I checked on the patient at this time. She is still having some pain. She will get some pain medications at this time. She also requested her afternoon blood pressure medications. 1422: She is feeling better after her second dose of dilaudid. Paged general surgery 1426: Discussed the patient's case with Dr. Dixon, General Surgery. She will come and evaluate the patient. MEDICAL DECISION MAKING: Prior records/ancillary studies reviewed. Prior ER visit reviewed. CT imaging did reveal a stone in the gallbladder. Triage Nursing notes reviewed and agree them. Additional history obtained from the patient significant other. The patient's history was concerning for abdominal pain. Differential diagnosis: Etiologies such as PUD, biliary pathology, UTI, appendicitis, diverticulitis, pancreatitis, obstruction, mesenteric ischemia, aortic pathology, infections, inflammatory bowel disease, renal colic, as well as others were entertained. Physical examination findings: As above. ER treatment provided: Normal saline hydration Oral labetalol IV Zofran IV Dilaudid IV Mefoxin On reassessment the patient felt better. Diagnostics interpreted by me: The labs revealed a mild leukocytosis on CBC. Chemistry panel and LFTs unremarkable. Imaging studies: Ultrasound imaging of the right upper quadrant was performed and is very concerning for acute cholecystitis. Consultation: A consultation was placed with the general surgeon on-call, Dr. Dixon. The case was discussed and diagnostics were reviewed. The patient was evaluated in the ER for further treatment. IMPRESSION: Acute Cholecystitis PLAN: Being evaluated by surgeon The scribe's documentation has been prepared under my direction and personally reviewed by me in its entirety. I confirm that the note above accurately reflects all work, treatment, procedures, and medical decision making performed by me. Impression & Plan Acute cholecystitis Past Med/Surg History Medical History Acute anemia Antiphospholipid antibody syndrome Currently taking Lovenox until 36 weeks then will take Heparin, then will have Lovenox 6 weeks Anxiety no meds CKD (chronic kidney disease) stage 3, GFR 30-59 ml/min Depression no meds History of ovarian cyst Hypertension Labetalol 200mg PO BID Iron deficiency takes supplements Thrombocytopenia no meds taken - follows forestry consultant UTI (urinary tract infection) Surgical History H/O dilation and curettage Family History Grandfather (Paternal) Colorectal cancer Father Diabetes Social History Preferred Language: Icelandic Communication Ability: Effective Geophysical Laboratory Director Required: No Beliefs That Will Affect Care: None marital status: Current Living Situation: Spouse Current Living Situation Comment: lives with and 10 yo son Other Information That Helps Us Care for You: No Feels Safe at Home: Yes Safety Concerns: Feels Safe At This Time Smoking Status: Current every day smoker Tobacco Type: cigarettes ; Cigarettes Per Day: 1 ; Do You Dip or Chew Tobacco: No ; Second Hand Exposure: No ; Tobacco Cessation Education Requested by Patient: No Hx Alcohol Use: No Hx Substance Use: No Results & Data Vital Signs Vital Signs - 24 hr 09/19/19 11:43 09/19/19 12:50 09/19/19 12:53 Temperature 36.7 C Temperature Source Oral Pulse Rate 99 H 99 H 128 H Pulse Rate [Apical] Pulse Rate from SpO2 Sensor 63 Pulse Rhythm Regular Regular Pulse Rhythm [Apical] Pulse Strength Normal Respiratory Rate 22 22 24 Respiratory Effort / Characteristics Non-Labored Spontaneous Respiratory Depth Normal Respiratory Pattern Regular Blood Pressure 157/78 H 170/105 H Blood Pressure [Left Arm] Blood Pressure Mean 104 115 Blood Pressure Mean [Left Arm] Blood Pressure Position Sitting Blood Pressure Position [Left Arm] Pulse Oximetry 100 100 100 Oxygen Delivery Method Room Air Room Air Room Air Oxygen Flow Rate Sepsis Recent Fever Within 48 Hours No Sepsis New/Unexplained Change in Mental Status No Sepsis Action Taken by Nursing No Action Required 09/19/19 13:00 09/19/19 13:30 09/19/19 14:00 Temperature Temperature Source Pulse Rate 65 66 79 Pulse Rate [Apical] Pulse Rate from SpO2 Sensor 66 67 80 Pulse Rhythm Pulse Rhythm [Apical] Pulse Strength Respiratory Rate 17 21 27 H Respiratory Effort / Characteristics Respiratory Depth Respiratory Pattern Blood Pressure 169/109 H 184/102 H 176/113 H Blood Pressure [Left Arm] Blood Pressure Mean 128 123 123 Blood Pressure Mean [Left Arm] Blood Pressure Position Blood Pressure Position [Left Arm] Pulse Oximetry 96 97 100 Oxygen Delivery Method Room Air Room Air Room Air Oxygen Flow Rate Sepsis Recent Fever Within 48 Hours Sepsis New/Unexplained Change in Mental Status Sepsis Action Taken by Nursing 09/19/19 14:30 09/19/19 15:00 09/19/19 15:30 Temperature Temperature Source Pulse Rate 67 79 72 Pulse Rate [Apical] Pulse Rate from SpO2 Sensor 68 81 77 Pulse Rhythm Pulse Rhythm [Apical] Pulse Strength Respiratory Rate 18 16 19 Respiratory Effort / Characteristics Respiratory Depth Respiratory Pattern Blood Pressure 165/104 H 176/120 H 168/108 H Blood Pressure [Left Arm] Blood Pressure Mean 141 131 135 Blood Pressure Mean [Left Arm] Blood Pressure Position Blood Pressure Position [Left Arm] Pulse Oximetry 98 99 98 Oxygen Delivery Method Room Air Room Air Room Air Oxygen Flow Rate Sepsis Recent Fever Within 48 Hours Sepsis New/Unexplained Change in Mental Status Sepsis Action Taken by Nursing 09/19/19 16:00 09/19/19 16:30 09/19/19 17:15 Temperature Temperature Source Pulse Rate 71 67 67 Pulse Rate [Apical] Pulse Rate from SpO2 Sensor 72 68 Pulse Rhythm Pulse Rhythm [Apical] Pulse Strength Respiratory Rate 16 14 14 Respiratory Effort / Characteristics Respiratory Depth Respiratory Pattern Blood Pressure 175/111 H 154/89 H 154/89 H Blood Pressure [Left Arm] Blood Pressure Mean 149 97 Blood Pressure Mean [Left Arm] Blood Pressure Position Blood Pressure Position [Left Arm] Pulse Oximetry 97 96 96 Oxygen Delivery Method Room Air Room Air Room Air Oxygen Flow Rate Sepsis Recent Fever Within 48 Hours Sepsis New/Unexplained Change in Mental Status Sepsis Action Taken by Nursing 09/19/19 18:54 09/19/19 19:00 09/19/19 19:14 Temperature 36.8 C Temperature Source Temporal Artery Scan Pulse Rate Pulse Rate [Apical] 71 67 64 Pulse Rate from SpO2 Sensor Pulse Rhythm Pulse Rhythm [Apical] Regular Regular Regular Pulse Strength Respiratory Rate 12 17 12 Respiratory Effort / Characteristics Non-Labored Spontaneous Non-Labored Spontaneous Non-Labored Spontaneous Respiratory Depth Normal Normal Normal Respiratory Pattern Regular Regular Regular Blood Pressure Blood Pressure [Left Arm] 135/96 146/89 H 175/96 H Blood Pressure Mean Blood Pressure Mean [Left Arm] 109 108 122 Blood Pressure Position Blood Pressure Position [Left Arm] Lying Lying Lying Pulse Oximetry 100 100 100 Oxygen Delivery Method Oxymask Oxymask Oxymask Oxygen Flow Rate 10 10 10 Sepsis Recent Fever Within 48 Hours Sepsis New/Unexplained Change in Mental Status Sepsis Action Taken by Nursing 09/19/19 19:20 Temperature Temperature Source Pulse Rate Pulse Rate [Apical] 74 Pulse Rate from SpO2 Sensor Pulse Rhythm Pulse Rhythm [Apical] Regular Pulse Strength Respiratory Rate 21 Respiratory Effort / Characteristics Non-Labored Spontaneous Respiratory Depth Normal Respiratory Pattern Regular Blood Pressure Blood Pressure [Left Arm] 148/93 H Blood Pressure Mean Blood Pressure Mean [Left Arm] 111 Blood Pressure Position Blood Pressure Position [Left Arm] Lying Pulse Oximetry 99 Oxygen Delivery Method Room Air Oxygen Flow Rate Sepsis Recent Fever Within 48 Hours Sepsis New/Unexplained Change in Mental Status Sepsis Action Taken by Longterm Medications Current Medication List: was personally reviewed by me Laboratory Data Attestation: I reviewed the patient's lab results. Result diagrams: 09/19/19 12:01 09/19/19 12:01 Lab Results 09/19/19 09/19/19 09/19/19 Range/Units 12:01 12:01 17:05 WBC 12.90 H (4.8-10.8) K/uL RBC 3.42 L (4.2-5.4) M/uL Hgb 10.1 L (12.0-16.0) g/dL Hct 30.1 L (37-47) % MCV 88.0 (80-100) fL MCH 29.5 (25-34) pg MCHC 33.6 (32-36) g/dL RDW Std Deviation 45.9 (36.4-46.3) fL RDW Coeff of Camilla 14.2 (11.5-14.5) % Plt Count 140 (130-400) K/uL MPV 10.9 H (7.4-10.4) fL Immature Gran % (Auto) 2.1 % Neut % (Auto) 80.5 % Lymph % (Auto) 10.4 % Stokes % (Auto) 4.4 % Eos % (Auto) 2.2 % Baso % (Auto) 0.4 % Immature Gran # (Auto) 0.27 H (0.00-0.02) K/uL Neut # (Auto) 10.38 H (1.4-6.5) K/uL Lymph # (Auto) 1.34 (1.2-3.4) K/uL Stokes # (Auto) 0.57 (0.11-0.59) K/uL Eos # (Auto) 0.29 (0-0.5) K/uL Baso # (Auto) 0.05 (0-0.2) K/uL Sodium 141 (136-145) mmol/L Potassium 4.2 (3.5-5.1) mmol/L Chloride 108 H (98-107) mmol/L Carbon Dioxide 24 (21-32) mmol/L Anion Gap 9.0 (3-11) BUN 30 H (7-18) mg/dl Creatinine 1.99 H (0.6-1.2) mg/dl Est Cr Clr Drug Dosing 42.9 ml/min Est GFR ( Amer) 37.8 Est GFR (Non-Af Amer) 32.6 BUN/Creatinine Ratio 14.8 (10-20) Glucose 104 H (70-99) mg/dl Calcium 9.8 (8.5-10.1) mg/dl Total Bilirubin 0.4 (0.2-1) mg/dl AST 29 (15-37) U/L ALT 61 (12-78) U/L Alkaline Phosphatase 112 (45-117) U/L Total Protein 7.9 (6.4-8.2) gm/dl Albumin 3.5 (3.4-5.0) gm/dl Globulin 4.4 H (2.5-4.0) gm/dl Albumin/Globulin Ratio 0.8 L (0.9-2) Lipase 158 (73-393) U/L Urine Color Yellow Urine Appearance Cloudy A (Clear) Urine pH 5.0 (4.5-7.5) Ur Specific Currie 1.025 (1.000-1.030) Urine Protein 2+ H (Negative) Urine Glucose (UA) Negative (Negative) Urine Ketones Negative (Negative) Urine Blood 3+ H (Negative) Urine Nitrite Negative (Negative) Urine Bilirubin Negative (Negative) Urine Urobilinogen Negative (Negative) Ur Leukocyte Esterase 1+ H (Negative) Urine WBC (Auto) 10-30 H (0-5) /hpf Urine RBC (Auto) 10-30 H (0-4) /hpf U Hyaline Cast (Auto) 1-5 (0-5) /lpf U Epithel Cells (Auto) 20-30 H (0-5) /lpf Urine Bacteria (Auto) Negative (Negative) Administered Medications Hydromorphone HCl (Dilaudid) 0.5 mg IV Q15M PRN PRN Reason: Pain Stop: 10/03/19 12:18 Last Admin: 09/19/19 16:10 Dose: 0.5 mg Documented by: [id number] Admin: 09/19/19 14:10 Dose: 0.5 mg Documented by: [id number] Admin: 09/19/19 12:48 Dose: 0.5 mg Documented by: [id number] Sodium Chloride (Nss 1000ml) 1,000 mls @ 125 mls/hr IV .Q8H LEIA Stop: 10/19/19 12:29 Last Admin: 09/19/19 12:48 Dose: 125 mls/hr Documented by: [id number] Discontinued Medications Bupivacaine HCl (Marcaine 0.5% Mpf) Confirm Administered Dose 30 ml .ROUTE .STK- MED ONE Stop: 09/19/19 17:11 Last Admin: 09/19/19 17:59 Dose: 30 ml Documented by: [id number] Cefoxitin Sodium (Mefoxin) 2,000 mg in 60 mls @ 100 mls/hr IV NOW STA Stop: 09/19/19 14:53 Last Infusion: 09/19/19 15:24 Dose: 0 mls/hr Documented by: [id number] Admin: 09/19/19 14:48 Dose: 100 mls/hr Documented by: [id number] Labetalol HCl (Normodyne) 200 mg PO NOW STA Stop: 09/19/19 13:58 Last Admin: 09/19/19 14:11 Dose: 200 mg Documented by: [id number] Labetalol HCl (Normodyne) 5 mg IV Q5M PRN PRN Reason: PACU Use-SBP>160 or DBP>100 Stop: 09/20/19 00:06 Last Admin: 09/19/19 19:10 Dose: 5 mg Documented by: [id number] Cosigned by: [id number] Ondansetron HCl (Zofran) 4 mg IV NOW STA Stop: 09/19/19 12:20 Last Admin: 09/19/19 12:48 Dose: 4 mg Documented by: [id number] Imaging Data Radiologist's Impression: Radiology results as stated below per my review and the radiologist's interpretation: ABDOMINAL ULTRASOUND, RIGHT UPPER QUADRANT HISTORY: upper abd pain. COMPARISON: Abdomen and pelvis CT 09/15/2019. FINDINGS: Pancreas: The pancreas demonstrates a normal echotexture. Liver: Unremarkable. Gallbladder: Completely contracted and therefore not well visualized. There appears to be diffuse gallbladder wall thickening measuring up to 4 mm. There is a punctate stone within the gallbladder. The technologist reported a positive sonographic German sign. Therefore, these findings are concerning for acute cholecystitis. CBD: 5 mm in thickness. There may be mild thickening of the proximal common bile duct. Right kidney: Mild hydronephrosis, unchanged. IMPRESSION: 1. There is diffuse gallbladder wall thickening measuring up to 4 mm. There is a punctate stone within the gallbladder. The technologist reported a positive sonographic German sign. Therefore, these findings are concerning for acute cholecystitis. 2. There may also be mild thickening of the proximal common bile duct which could represent extension of the suspected infection. Electronically signed by: Everette Estrada M.D. 09/19/2019 1:58 PM Blood Pressure Blood Pressure Findings: Elevated blood pressure Additional Comments: further management by surgeon Discharge Plan Visit Data *Final* Discharge Date/Time: 09/19/19 17:15 Chief Complaint: Abdominal Pain Stated Complaint: UPPER ABDOMEN PAIN,RIGHT BACK PAIN AND SHOULDER PA ED Provider: Jose Antonio Hogan Discharge Problem: Acute cholecystitis Patient Disposition: Still a Patient Discharge Instructions Interventions: ED Discharge Assessment Last Done: 09/19/19 17:15 The scribe's documentation has been prepared under my direction and personally reviewed by me in its entirety. I confirm that the note above accurately reflects all work, treatment, procedures, and medical decision making performed by me.
[2019-09-19] MEDS: LABETALOL HCL 200 MG TAB PO SCH (20:35)
[2019-09-19] MEDS: LACTATED RINGER'S 1,000 ML IV SCH (20:35)
[2019-09-20] MEDS: OXYCODONE HCL IR 5 MG TAB (IMMEDIATE RELEASE) PO PRN ×2 (02:58→07:41)
[2019-09-20] MEDS: LACTATED RINGER'S 1,000 ML IV SCH (06:23)
[2019-09-20] MEDS: LABETALOL HCL 200 MG TAB PO SCH (07:37)
[2019-09-20] MEDS ORDERED: INFLUENZA ADMINISTRATION CHARGE ONE (08:15)
[2019-09-20] MEDS ORDERED: INFLUENZA VIRUS QUAD VACCINE 0.5 ML SYR IM ONE (08:15)
[2019-09-20] MEDS ORDERED: PRENATAL VITAMIN 1 TAB PO SCH (09:00)
[2019-09-20] MEDS ORDERED: FERROUS FUMARATE/ASCORBIC ACID 65 MG CAPCR PO SCH ×2 (09:00→09:30)
--- NOTE | 2019-09-20 10:49 | Surgery Progress Note ---
Date of Service September 20, 2019 Assessment & Plan (1) Acute cholecystitis: s/p lap cholecystectomy yesterday. Doing well. will discharge home today. Postop instructions reviewed with pt. Subjective Feels well. Tolerating diet. Pain under good control. No postop concerns. Review of Systems Review of Systems: All systems reviewed & are unremarkable except as noted in HPI & below Physical Exam Constitutional: WD/WN, vitals as above Respiratory: normal respiratory effort, lungs clear to auscultation Cardiovascular: RRR, no murmur, no edema Gastrointestinal (Abdomen): normal bowel sounds, soft, nontender, no hepatosplenomegaly incisions clean and dry Psychiatric: A+Ox3, euthymic affect Results & Data Vital Signs (Past 12 Hours) Vital Signs Temp Pulse Pulse Resp BP BP Pulse Ox 09/20/19 09:08 153/93 H 09/20/19 07:26 36.6 C 68 16 164/103 H 98 09/20/19 04:03 149/92 H 09/20/19 03:07 36.6 C 75 16 160/101 H 154/102 H 98 09/19/19 23:15 36.8 C 87 16 156/80 H 97
--- NOTE | 2019-09-20 10:53 | Discharge Summary ---
Date of Service September 20, 2019 Admission HPI Per Admitting Provider 33 yr old woman 2 weeks from induced vaginal delivery of baby boy (induced for pre-eclampsia) presents with acute onset of sharp, stabbing right upper quadrant pain radiating to back since this morning. Was able to eat yesterday but pain started overnight. Has only been able to keep down 1 orange today (at 10). Worse with breathing, movement. Never had similar symptoms but was just admitted overnight for 1 day from 09/16-09/17 for lower abdominal pain. No relation to fatty foods that she is aware of but she did have spaghetti casserole for dinner and steak salad for lunch. No fevers/ chills. No prior abdominal operations. On lovenox injections for antiphospholipid antibody syndrome - last dose was yesterday lópez. Admission Exam (Per Admitting) Constitutional WD/WN, vitals as above well developed, well nourished and + acute distress (in pain) Eyes + anicteric sclerae Neck normal visual inspection and trachea midline Respiratory normal respiratory effort, lungs clear to auscultation Cardiovascular RRR, no murmur, no edema Gastrointestinal (Abdomen) normal bowel sounds, soft, nontender, no hepatosplenomegaly Inspection/Auscultation: abdomen normal to inspection and normal bowel sounds; abdomen not distended Percussion/Palpation: + abdomen tender (RUQ with zafar's sign), + guarding (RUQ) and abdomen soft; no hernia and no abdominal mass Neurologic moves all extremities; no focal motor deficits Psychiatric A+Ox3, euthymic affect Discharge Data Consultations 09/19/19 14:55 ED Decision to Admit Stat Procedures Performed Operation Date: 09/19/19 16:00 Actual Procedures p Laparoscopic Cholecystectomy - Deanna Dixon MD Hospital Course (1) Acute cholecystitis: s/p lap cholecystectomy yesterday. Doing well. will discharge home today. Postop instructions reviewed with pt.
[2019-09-20] MEDS ORDERED: ENOXAPARIN INJ 40 MG/0.4 ML SYR SQ SCH (22:00)
--- NOTE | 2019-09-22 16:16 | Anesthesiology Progress Note ---
Date of Service September 20, 2019 Anesthesia Post Procedure Pain Intensity Abdomen: Pain Intensity: 5 Back: Pain Intensity: 4 Transfer of Care Handoff Completed per policy Notes Mental Status: alert / awake / arousable Patient Amnestic to Procedure: Yes Nausea / Vomiting: adequately controlled Pain: adequately controlled Airway Patency, RR, SpO2: stable & adequate BP & HR: stable & adequate Hydration State: stable & adequate Anesthetic Complications: no major complications apparent
--- NOTE | 2019-10-09 09:00 | Operative Report ---
Post Operative Report Pre & Post Diagnosis Operation Date: 09/19/19 16:00 Pre-Op Diagnosis: UPPER ABDOMEN PAIN,RIGHT BACK PAIN AND SHOULDER PA Post-Op Diagnosis: Acute cholecystitis I identified the patient and participated in the time-out.: Yes Procedure Operation Date: 09/19/19 16:00 Actual Procedures p Laparoscopic Cholecystectomy - Deanna Dixon MD Surgeon Deanna Dixon MD Merchandise Support Associate none Estimated Blood Loss 5 Findings Consistent with Post-Op Diagnosis Specimens gallbladder Description of Procedure The patient had placement of SCD's and received antibiotics preoperatively. After the induction of GET, her abdomen was prepped and draped in the usual sterile fashion. She was placed in trendelenburg. A supraumbilical incision was made and a veress needle placed into the peritoneal cavity. This was tested with the saline drop test and initial pressure was 2 mm HG. This was taken to 15 mmHg and a 5 mm trocar placed. Her position was switched to reverse trendelenburg and three additional trocars placed under direct vision - two 5 mm on the right side of the abdomen and an 11 mm in the epigastric area. The gallbladder was noted to be inflamed. Adhesions were bluntly taken down and dissection begun at the triangle of Calot. Cystic duct and artery were identified. After critical views were seen, both structures were doubly clipped on the remaining side, singly clipped on the gallbladder side and divided. The gallbladder was dissected off of the liver bed. It was placed in an endobag and removed through the epigastric incision. Hemostasis was noted to be present. The abdomen was irrigated and suctioned. Trocars were removed. The epigastric fascia was closed with interrupted 0 vicryl suture. The skin was closed with 4-0 vicryl sutures. Steri strips and sterile dressing were applied. Local anesthesia had been injected prior to completion of procedure. She was awakened and taken to recovery in stable condition. I attest to the content of the Intraoperative Record and any orders documented therein. Any exceptions are noted below.
== END 2019-09-20 12:58 | disposition home or self-care (01) ==
LOC: ED 11:38 → 3E 17:15 → ASU 17:15